=== PATIENT | female | born 1945 | race Caucasian/White ===

== ENCOUNTER → 2017-08-21 08:41 | Outpatient (CLI) | payer MEDICARE, SELFPAY ==
--- NOTE | 2017-08-21 | DI.MG.S_ITS ---
BILATERAL DIGITAL SCREENING MAMMOGRAM 3D/2D WITH CAD: 08/21/2017 CLINICAL: Routine screening. Family history of breast cancer. Comparison is made to exams dated: 07/09/2016 mammogram, 04/22/2014 mammogram, and 09/16/2013 mammogram - [facility]. There are scattered fibroglandular elements in both breasts. Current study was also evaluated with a Computer Aided Detection (CAD) system. There is a biopsy clip in the left breast. No significant masses, calcifications, or other findings are seen in either breast. There has been no significant interval change. IMPRESSION: NEGATIVE There is no mammographic evidence of malignancy. A 1 year screening mammogram is recommended. This exam was interpreted at Station ID: [id number]. NOTE: For mammograms, a report in lay terms will be sent to the patient. Approximately 15% of breast malignancies will not be visualized mammographically. In the management of a palpable breast mass, a negative mammogram must not discourage biopsy of a clinically suspicious lesion. Electronically Signed By: Kyler arambula/pasha:08/21/2017 10:17:23 letter sent: Normal Exam ACR BI-RADS Category 1: Negative 3341F
== END ==
PROVIDERS: PCP Internal Medicine; Visit Provider Internal Medicine
DX: Z12.31 Encounter for screening mammogram for malignant neoplasm of breast (principal); Z80.3 Family history of malignant neoplasm of breast
CPT/HCPCS: 77063; 77067

== ENCOUNTER → 2017-08-26 14:39 | Outpatient (CLI) | payer MEDICARE, SELFPAY ==
--- NOTE | 2017-08-26 | DI.MRI.S_ITS ---
PROCEDURE: MR LUMBAR SPINE WO CON INDICATIONS: Left leg and foot pain and numbness TECHNIQUE: Noncontrast sagittal T1 spin echo and T2 fast echo, sagittal STIR, axial T1 and T2 fast spin echo through the lumbar spine. Axial and oblique coronal T1 spin echo and STIR through the sacrum. In cases with scoliosis, additional coronal T2 fast spin echo may be performed. COMPARISON: [facility], CR, L-SPINE 2-3 VIEWS, 10/28/2013, 14:58. [facility], MR, PELVIS W&WO CONTRAST, 06/07/2016, 13:35. FINDINGS: Image quality: Excellent. Alignment and Curvature: There is normal bony alignment. Bone Marrow: Marrow is of normal overall signal. No acute vertebral body compression fractures. No sacral fractures. Spinal Cord: Conus medullaris terminates at the L1-L2 level. Visualized cord demonstrates normal signal and size. Paraspinous Soft Tissues: No paravertebral masses. Diverticulosis is seen, without findings of active diverticulitis. T12-L1: Normal appearance. L1-L2: Normal appearance. L2-L3: The disc height is well-preserved. Loss of disc signal is seen at this level. Mild generalized disc bulge is seen. There is moderate left-sided and mild right-sided neural foraminal narrowing seen. No significant central canal narrowing is seen. L3-L4: Mild loss of disc height is seen. Loss of disc signal is seen. Mild to moderate disc bulge is seen at this level. Mild bilateral neural foraminal narrowing is seen. Mild central canal narrowing is seen. L4-L5: The disc height is well-preserved. Loss of disc signal is seen at this level. Mild generalized disc bulge is seen. No significant neural foraminal or central canal narrowing are seen. L5-S1: Normal appearance. 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 Sacrum: Sacral neural foramina appear normal throughout. Superior to the piriformis muscles, the pre-plexal structures appear normal, including the lumbosacral trunk and S1 root. Inferior to the piriformis muscles, the sciatic nerves appear normal. IMPRESSION: Multiple levels of lumbar spine degenerative change are seen, which are likely within normal limits for age. No significant sacrum abnormality can be seen. Dictated by: Calvin Sprague M.D. on 08/26/2017 at 14:32 Approved by: Calvin Sprague M.D. on 08/26/2017 at 14:39
== END ==
PROVIDERS: PCP Internal Medicine; Visit Provider Internal Medicine
DX: M79.672 Pain in left foot (principal); M79.605 Pain in left leg; M51.36 Other intervertebral disc degeneration, lumbar region
CPT/HCPCS: 72148

== ENCOUNTER 2017-09-08 08:20 | Emergency (ER) | payer MEDICARE, SELFPAY ==
--- NOTE | 2017-09-08 08:22 | ED.FEMALEGU ---
HPI - Female Genitourinary General Chief complaint: Urogenital-Female Stated complaint: POSSIBLE BLADDER OR KIDNEY INFECTION Time Seen by Provider: 09/08/17 08:21 Source: patient Mode of arrival: ambulatory Limitations: no limitations History of Present Illness HPI Narrative: Patient here for evaluation of dysuria and frequency and hesitancy since Saturday. She also states she has felt nauseous but has not vomited. Also has right CVA tenderness. Has never had a history of urinary tract infections in the past. Has not tried anything at home for it. Related Data Home Medications Medication Instructions Recorded Confirmed ALBUTEROL SULFATE (Ventolin / 2 puff INH Q4H PRN #0 06/11/10 Proventil) aspirin 81 mg PO QDAY #1 04/20/11 pravastatin [Pravachol] 40 mg PO HS #0 tab 12/15/15 prednisone 10 mg PO AMCC #0 12/15/15 Previous Rx's Medication Instructions Recorded prednisone 50 mg PO AMCC #10 tab 12/18/15 cephalexin 500 mg PO Q12H 7 Days #14 cap 09/08/17 phenazopyridine 100 mg PO TID PRN 2 Days #6 tab 09/08/17 Allergies Allergy/AdvReac Type Severity Reaction Status Date / Time adhesive Allergy Unknown Unverified 06/26/17 12:14 moxifloxacin Allergy Unknown Unverified 06/26/17 12:14 atorvastatin [ATORVASTATIN] AdvReac Intermediate MUSCLE Unverified 06/26/17 12:14 WEAKNESS lisinopril [LISINOPRIL] AdvReac Intermediate COUGH Unverified 06/26/17 12:14 Review of Systems Constitutional Denies chills, Denies fever(s), Denies lethargy and Denies weakness Cardiovascular Denies chest pain and Denies dyspnea Respiratory Denies dyspnea Gastrointestinal Gastrointestinal: Denies constipation, Denies dyspepsia, Reports nausea and Denies vomiting Genitourinary Reports urinary frequency, Reports difficulty voiding, Reports dysuria and Reports flank pain Musculoskeletal Denies myalgias and Denies arthralgias Integumentary/Breasts Denies lesions and Denies rash Neurologic Denies weakness Hematologic/Lymphatic Denies easy bleeding and Denies easy bruising [facility] Surgical History Status post delivery Social History Smoking Status: Unknown if ever smoked Exam Initial Vital Signs Initial Vital Signs: Vital Signs Temperature 97.8 F 09/08/17 08:37 Pulse Rate 112 H 09/08/17 08:37 Respiratory Rate 20 09/08/17 08:37 Blood Pressure 160/84 H 09/08/17 08:37 Pulse Oximetry 96 09/08/17 08:37 Const General: cooperative, healthy appearing, comfortable and well developed [facility] Head: normal to inspection, normocephalic and atraumatic GI Inspection: non-distended Palpation: soft, No firm, No guarding and No tender Back/Spine/Pelvis Back: CVA tenderness right Skin Lesions: no lesions Rashes: no rashes Wounds: no wounds Neuro General: alert, awake and oriented x3 Extrem General: normal to inspection Course Orders Ordered: ED Orders 09/08/17 08:30 Urinalysis and Microscopic Stat Urine Culture Stat Vital Signs - 8 hr 09/08/17 08:37 Temperature 97.8 F Pulse Rate 112 H Respiratory Rate 20 Blood Pressure 160/84 H Pulse Oximetry 96 MDM - Female Genitourinary Lab Data Lab Results 09/08/17 Range/Units 08:30 Urine Color Straw Urine Appearance Sl cloudy Urine pH 7.5 (4.5-8.0) Ur Specific [place] 1.015 (1.000-1.035) Urine Protein 1+ H (Negative) Urine Glucose (UA) Normal (Normal) g/dL Urine Ketones Negative (NEGATIVE) Urine Occult Blood 2+ H (Negative) Urine Nitrate Negative (Negative) Urine Bilirubin Negative (NEGATIVE) Urine Urobilinogen 0.2 (0.2) E.U./dL Ur Leukocyte Esterase 3+ H (NEGATIVE) Urine RBC 5-10/hpf H (0-5/HPF) Urine WBC 10-30/hpf H (0-5/HPF) Ur Squamous Epith Cells 0-1 /hpf Urine Bacteria Moderate (10-30) H (None) Ur Culture Indicated? Specimen cultured Micro UA Comment Not Reportable [facility] Narrative Medical decision making narrative: Patient with a urinalysis consistent with urinary tract infection. Urine culture pending at time of discharge. Patient with right CVA tenderness which leads to some concern for pyelonephritis however she is afebrile and not vomiting. I suspect a trial of home oral antibiotics is not a reasonable in this situation. Patient also go home with prescription for pretty in. She was given return precautions. She expressed understanding and agreement with plan. Discharge Plan Departure Patient Disposition: Home, Self-Care Clinical Impression: Urinary tract infection Instructions: DI for Urinary Tract Infection (UTI) Activity Restrictions/Additional Instructions: Take all the medications as directed. Make sure you are increasing your fluid intake. Return to the emergency department for any new symptoms, vomiting, inability to tolerate the antibiotics, worsening pain, or any other concerning symptoms. Prescriptions: New phenazopyridine 100 mg tablet 100 mg PO TID PRN (Reason: pain) 2 Days Qty: 6 RF: 0 cephalexin 500 mg capsule 500 mg PO Q12H 7 Days Qty: 14 RF: 0 No Action ALBUTEROL SULFATE (Ventolin / Proventil) 2 puff INH Q4H PRN Qty: 0 RF: 0 aspirin 81 MG tablet,delayed release (DR/EC) 81 mg PO QDAY Qty: 1 RF: 0 pravastatin [Pravachol] 40 MG tablet 40 mg PO HS Qty: 0 RF: 0 prednisone 10 MG tablet 10 mg PO AMCC Qty: 0 RF: 0 prednisone 50 MG tablet 50 mg PO AMCC Qty: 10 RF: 0
[2017-09-08 08:37] VITALS: BP 160/84; PULSE 112; RESP 20; TEMP 36.6; O2SAT 96; BMI 22.6
[2017-09-08 08:46] LABS: Appearance Urine UA SL CLOUDY; Color Urine UA Straw; Specific Gravity Urine UA 1.015 (1.000-1.035); pH Urine UA 7.5 (4.5-8.0)
[2017-09-08 08:47] LABS: Bilirubin Urine UA Negative (NEGATIVE); Glucose Urine UA Normal (Normal); Ketones Urine UA NEGATIVE (NEGATIVE); Leukocyte Esterase Urine UA 3+ (NEGATIVE); Nitrite Urine UA Negative (Negative); Occult Blood Urine UA 2+ (Negative); Protein Urine UA 1+ (Negative); RBC Urine 5-10/HPF (0-5/HPF); Squamous Epithelial Cell Urine 0-1 /HPF; Urobilinogen Urine UA 0.2 E.U./dL (0.2); WBC Urine 10-30/HPF (0-5/HPF)
[2017-09-08 08:48] LABS: Bacteria Urine Moderate (10-30); Culture Indicated Urine Specimen Cultured
[2017-09-08 09:20] VITALS: BP 157/82; PULSE 100; RESP 18; O2SAT 96
== END 2017-09-08 09:20 | disposition home or self-care (01) ==
PROVIDERS: Emergency Provider Emergency Medicine; PCP Internal Medicine
DX: N39.0 Urinary tract infection, site not specified (principal)
CPT/HCPCS: 81001; 81003; 87077; 87086; 87186; 99282; 99283

== ENCOUNTER → 2017-12-20 11:59 | Outpatient (CLI) | payer MEDICARE, SELFPAY ==
--- NOTE | 2017-12-20 | DI.RAD.S_ITS ---
PROCEDURE: XR HIP W PEL IF DONE LT 2V INDICATIONS: pain in left hip TECHNIQUE: AP pelvis with lateral view(s) of the left hip(s). COMPARISON: None. FINDINGS: Bones: No fractures or dislocations. Pelvic ring appears intact. No suspicious bony lesions. Moderate left hip joint osteoarthritis is seen, no evidence of avascular necrosis. Soft tissues: The visualized bowel gas pattern is normal. No suspicious soft tissue calcifications. IMPRESSION: Moderate left hip joint osteoarthritis. No fracture or dislocation. No evidence of avascular necrosis. Dictated by: Brad Porter M.D. on 12/20/2017 at 12:48 Approved by: Brad Porter M.D. on 12/20/2017 at 12:49
== END ==
PROVIDERS: PCP Internal Medicine; Visit Provider Physician Assistant
DX: M25.552 Pain in left hip (principal); M16.12 Unilateral primary osteoarthritis, left hip
CPT/HCPCS: 73502

== ENCOUNTER → 2018-08-22 14:54 | Outpatient (CLI) | payer MEDICARE, SELFPAY ==
--- NOTE | 2018-08-22 | DI.MG.S_ITS ---
BILATERAL DIGITAL SCREENING MAMMOGRAM 3D/2D WITH CAD: 08/22/2018 CLINICAL: Routine screening. Family history of breast cancer. Comparison is made to exams dated: 08/21/2017 mammogram, 07/09/2016 mammogram, and 04/22/2014 mammogram - [facility]. There are scattered fibroglandular elements in both breasts. Current study was also evaluated with a Computer Aided Detection (CAD) system. There is postsurgical/postbiopsy parenchymal scarring of the upper outer left breast at middle depth with an associated biopsy clip noted, which is not significantly changed from prior exams. There are additional biopsy/surgical clips in the left breast. There is a mole marker on the right breast. No significant masses, calcifications, or other findings are seen in either breast. IMPRESSION: There is no mammographic evidence of malignancy. A 1 year screening mammogram is recommended. This exam was interpreted at Station ID: [id number]. NOTE: For mammograms, a report in lay terms will be sent to the patient. Approximately 15% of breast malignancies will not be visualized mammographically. In the management of a palpable breast mass, a negative mammogram must not discourage biopsy of a clinically suspicious lesion. Electronically Signed By: Preston Herrera M.D. ecl/:08/22/2018 18:55:02 letter sent: Normal Exam ACR BI-RADS Category 2: Benign Finding(s) 3342F
== END ==
PROVIDERS: PCP Internal Medicine; Visit Provider Internal Medicine
DX: Z12.31 Encounter for screening mammogram for malignant neoplasm of breast (principal); Z80.3 Family history of malignant neoplasm of breast
CPT/HCPCS: 77063; 77067

== ENCOUNTER → 2019-01-23 15:06 | Outpatient (CLI) | payer MEDICARE, SELFPAY ==
[2019-01-23 16:14] LABS: Blood Urea Nitrogen 14 mg/dL (7-17); Estimated Glomerular Filt Rate > 60.0 mL/min (>60)
== END ==
PROVIDERS: PCP Internal Medicine; Visit Provider Internal Medicine
DX: M81.0 Age-related osteoporosis without current pathological fracture (principal)
CPT/HCPCS: 82565; 84520

== ENCOUNTER → 2019-02-05 11:30 | Oncology outpatient (ONC) | payer MEDICARE, SELFPAY ==
[2017-09-11] MEDS: ZOLEDRONIC ACID 5 MG in SODIUM CHLORIDE 0.9% 100 ML 318.75 ML IV (15:00)
[2017-09-11 15:25] VITALS: BP 113/66; PULSE 108; RESP 20; TEMP 37.1; O2SAT 96
[2019-02-05] MEDS: ZOLEDRONIC ACID 5 MG in SODIUM CHLORIDE 0.9% 100 ML 318.75 ML IV (12:00)
[2019-02-05 12:04] VITALS: BP 140/63; PULSE 93; RESP 18; TEMP 36.9; O2SAT 95
== END ==
PROVIDERS: PCP Internal Medicine; Visit Provider Internal Medicine
DX: M81.0 Age-related osteoporosis without current pathological fracture (principal)
CPT/HCPCS: 36000; 96365; 96374; J3489

== ENCOUNTER → 2019-06-03 14:59 | Outpatient (ROUT) | payer MEDICARE, SELFPAY | PROVIDERS: PCP Internal Medicine; Visit Provider Internal Medicine | DX: R39.9 Unspecified symptoms and signs involving the genitourinary system (principal) | CPT/HCPCS: 87086 ==

== ENCOUNTER → 2019-10-26 18:39 | Outpatient (ROUT) | payer MEDICARE, SELFPAY ==
[2019-10-26 19:03] LABS: Alanine Aminotransferase 25 IU/L (<35); Albumin 4.6 g/dL (3.5-5.0); Albumin Globulin Ratio 1.3 (1.0-2.8); Alkaline Phosphatase 116 U/L (38-126); Amylase 59 U/L (30-110); Aspartate Aminotransferase 46 IU/L (14-36); BUN Creatinine Ratio 16.9 (6-22); Bilirubin Total 0.8 mg/dL (0.2-1.3); Blood Urea Nitrogen 11 mg/dL (7-17); Carbon Dioxide 28 mmol/L (22-32); Chloride 103 mmol/L (98-107); Cholesterol 213 mg/dL (140-199); Estimated Glomerular Filt Rate > 60.0 mL/min (>60); Globulin 3.5 g/dL (1.7-4.1); Glucose 93 mg/dL (80-110); HDL Cholesterol 102 mg/dL (40-60); HEMOLYSIS 20 (0-50); LDL Cholesterol Calculated 72 mg/dL (<100); Lipase 90 U/L (23-300); Potassium 4.1 mmol/L (3.4-5.1); Sodium 139 mmol/L (137-145); Total Protein 8.1 g/dL (6.3-8.2); Triglycerides 195 mg/dL (35-150)
[2019-10-26 19:30] LABS: Add Manual Diff / Slide Review NO; Basophils Absolute Auto 0 /uL (0-100); Basophils Percent Auto 0.8 % (0-2); Eosinophils Absolute Auto 200 /uL (0-450); Eosinophils Percent Auto 3.9 % (2-4); Hematocrit 44.6 % (36-46); Hemoglobin 14.9 g/dL (12.0-16.0); Lymphocytes Absolute Auto 1300 /uL (1100-4500); Lymphocytes Percent Auto 20.3 % (25-40); Mean Corpuscular HGB Conc 33.5 % (30-36); Mean Corpuscular Hemoglobin 28.9 PG (26-34); Mean Corpuscular Volume 86.5 fL (80-100); Monocytes Absolute Auto 700 /uL (0-900); Neutrophils Absolute Auto 4000 /uL (1500-7000); Platelet Count 306 X10^3/uL (150-400); Red Blood Cell Count 5.15 X10^6/uL (4.0-5.2); Red Cell Distribution Width 13.4 % (11.6-14.8); White Blood Cell Count 6.3 X10^3/uL (4.5-11.0)
[2019-10-26 19:34] LABS: TSH w/ Reflex to FT4 3.41 uIU/mL (0.47-4.68)
== END ==
PROVIDERS: PCP Internal Medicine; Visit Provider Internal Medicine
DX: R53.83 Other fatigue (principal); R11.2 Nausea with vomiting, unspecified; E78.2 Mixed hyperlipidemia
CPT/HCPCS: 80053; 80061; 82150; 83690; 84443; 85025

== ENCOUNTER → 2019-10-28 12:39 | Outpatient (CLI) | payer MEDICARE, SELFPAY ==
--- NOTE | 2019-10-28 | DI.US.S_ITS ---
PROCEDURE: US ABDOMEN COMPLETE INDICATIONS: NAUSEA, VOMITING TECHNIQUE: Real-time scanning was performed of the abdominal and retroperitoneal organs, with image documentation. COMPARISON: None. FINDINGS: Liver: Liver is normal in size and homogeneous in echotexture. Gallbladder: The gallbladder wall measures 1.2 mm in diameter. A nonobstructing 4.3 mm calculus is present within the gallbladder fundus. Biliary ducts: Intrahepatic bile ducts are non-dilated. Extrahepatic bile duct caliber measures 4.5 mm. Normal is 6-7 mm or less in diameter, or 10 mm or less post-cholecystectomy. Pancreas: The pancreas is not visualized. Spleen: Spleen is normal in size and homogeneous in echotexture. Kidneys: Kidneys are normal in size and echotexture. Right kidney measures 11.3 cm long; left kidney measures 0.6 cm long. No hydronephrosis or nephrolithiasis. No solid masses. Aorta: Visualized aorta is normal in caliber at less than 3 cm. Iliacs: Proximal common iliac arteries are normal in caliber at less than 2.5 cm. IVC: Intrahepatic inferior vena cava is patent. Miscellaneous: No free abdominal fluid. IMPRESSION: 1. Cholelithiasis. No findings to suggest choledocholithiasis or acute cholecystitis. Dictated by: Gina Johnson M.D. on 10/28/2019 at 16:40 Approved by: Gina Johnson M.D. on 10/28/2019 at 16:41
== END ==
PROVIDERS: PCP Internal Medicine; Referring Provider Internal Medicine; Visit Provider Internal Medicine
DX: R11.2 Nausea with vomiting, unspecified (principal); K80.20 Calculus of gallbladder without cholecystitis without obstruction
CPT/HCPCS: 76700

== ENCOUNTER → 2020-03-23 11:12 | Outpatient (CLI) | payer MEDICARE, SELFPAY ==
--- NOTE | 2020-03-23 | DI.MG.S_ITS ---
BILATERAL DIGITAL SCREENING MAMMOGRAM 3D/2D WITH CAD: 03/23/2020 CLINICAL: Routine screening. Family history of breast cancer. Comparison is made to exams dated: 08/22/2018 mammogram, 08/21/2017 mammogram, and 07/09/2016 mammogram - [facility]. There are scattered fibroglandular elements in both breasts. Current study was also evaluated with a Computer Aided Detection (CAD) system. There are biopsy clips in the left breast. There is a mole marker on the right breast. No significant masses, calcifications, or other findings are seen in either breast. There has been no significant interval change. IMPRESSION: NEGATIVE There is no mammographic evidence of malignancy. A 1 year screening mammogram is recommended. This exam was interpreted at Station ID: [id number]. NOTE: For mammograms, a report in lay terms will be sent to the patient. Approximately 15% of breast malignancies will not be visualized mammographically. In the management of a palpable breast mass, a negative mammogram must not discourage biopsy of a clinically suspicious lesion. Electronically Signed By: Daniel davey/pasha:03/23/2020 13:23:17 letter sent: Normal Exam ACR BI-RADS Category 1: Negative 3341F
== END ==
PROVIDERS: PCP Internal Medicine; Referring Provider Internal Medicine; Visit Provider Internal Medicine
DX: Z12.31 Encounter for screening mammogram for malignant neoplasm of breast (principal); Z80.3 Family history of malignant neoplasm of breast
CPT/HCPCS: 77063; 77067

== ENCOUNTER 2020-04-13 08:55 | Observation (INO) | payer MEDICARE, SELFPAY ==
[2020-04-13] VITALS (34 sets, daily range): BP systolic 113–215; BP diastolic 60–131; PULSE 77–96; RESP 16–24; TEMP 36.7–37.4; O2SAT 92–100; BMI 22.8
--- NOTE | 2020-04-13 | DI.MRI.S_ITS ---
PROCEDURE: MR HEAD/BRAIN WO CON INDICATIONS: dizziness and ataxia, r/o CVA TECHNIQUE: Non-contrast axial T1 spin echo, axial T2 fast spin echo, sagittal and axial FLAIR, coronal T2 fast spin echo, axial gradient echo, axial diffusion and ADC through the brain. COMPARISON: None. FINDINGS: Image quality: Excellent. CSF spaces: Ventricles appear symmetric in size and shape. Basal cisterns are patent. No extra-axial fluid collections. Brain: No intracranial bleeds or mass effects. There is cerebral volume loss for age. There are periventricular and deep white matter chronic small vessel ischemic changes. Brainstem appears normal. Diffusion-weighted images show no acute ischemic insults. No chronic ischemic insults. Normal intravascular flow voids are present. Skull and face: Calvarial bone marrow is normal in signal. Orbits are normal. Sinuses: Sinuses and mastoids are clear. IMPRESSION: Diffuse small white matter changes, probably represent chronic microvascular ischemic disease, versus statistically less likely demyelination or other infectious, inflammatory, neurodegenerative etiology, technically nonspecific. No acute ischemia Dictated by: Evaristo Kline M.D. on 04/13/2020 at 15:00 Approved by: Evaristo Kline M.D. on 04/13/2020 at 15:04
--- NOTE | 2020-04-13 09:09 | DI.CT.S_ITS ---
PROCEDURE: CT HEAD/BRAIN WO CON INDICATIONS: woke w/ dizzy/dbl vision TECHNIQUE: Noncontrast 4.5 mm thick angled axial sections acquired from the foramen magnum to the vertex, with coronal and sagittal reformats. For radiation dose reduction, the following was used: automated exposure control, adjustment of mA and/or kV according to patient size. COMPARISON: None. FINDINGS: Image quality: Excellent. CSF spaces: Basal cisterns are patent. No extra-axial fluid collections. The ventricles are symmetric in size and shape. Brain: No intracranial bleeds or masses. There is cerebral volume loss for age, with resultant ventricular and sulcal prominence. There are periventricular and deep white matter chronic small vessel ischemic changes. Chronic right taylor radiata lacunar infarct. Small chronic bilateral basal ganglia and subinsular white matter lacunar infarcts. There is intracranial internal carotid artery atherosclerosis. Skull and face: Calvarium and visualized facial bones appear intact, without suspicious lesions. Sinuses: Visualized sinuses and mastoids are clear. IMPRESSION: No acute intracranial disease process. Dictated by: Mayi Brooks MD, PhD on 04/13/2020 at 8:33 Approved by: Mayi Brooks MD, PhD on 04/13/2020 at 8:36
--- NOTE | 2020-04-13 09:09 | DI.RAD.S_ITS ---
PROCEDURE: XR CHEST 1V INDICATIONS: dizzy/double vision TECHNIQUE: One view of the chest was acquired. COMPARISON: [facility], , CHEST 2 VIEW, 12/15/2015, 16:57. FINDINGS: Surgical changes and devices: None. Lungs and pleura: No acute consolidation. There is a dense nodule in the left apex compatible with a calcified granuloma redemonstrated. No pleural effusions or pneumothorax. Mediastinum: Mediastinal contours appear normal. Heart size is normal. Bones and chest wall: No suspicious bony lesions. Overlying soft tissues appear unremarkable. IMPRESSION: 1. No acute cardiopulmonary disease. Dictated by: Daniel Roberts M.D. on 04/13/2020 at 9:29 Approved by: Daniel Roberts M.D. on 04/13/2020 at 9:32
[2020-04-13 09:24] LABS: Add Manual Diff / Slide Review NO; Basophils Absolute Auto 0 /uL (0-100); Basophils Percent Auto 0.5 % (0-2); Eosinophils Absolute Auto 200 /uL (0-450); Eosinophils Percent Auto 3.4 % (2-4); Hematocrit 41.3 % (36-46); Hemoglobin 13.4 g/dL (12.0-16.0); Lymphocytes Absolute Auto 1600 /uL (1100-4500); Lymphocytes Percent Auto 26.6 % (25-40); Mean Corpuscular HGB Conc 32.5 % (30-36); Mean Corpuscular Hemoglobin 28.6 PG (26-34); Mean Corpuscular Volume 87.9 fL (80-100); Monocytes Absolute Auto 700 /uL (0-900); Monocytes Percent Auto 11.2 % (3-14); Neutrophils Absolute Auto 3500 /uL (1500-7000); Neutrophils Percent Auto 58.3 % (50-75); Platelet Count 360 X10^3/uL (150-400); Red Blood Cell Count 4.69 X10^6/uL (4.0-5.2); Red Cell Distribution Width 13.1 % (11.6-14.8)
[2020-04-13 09:27] LABS: Prothrombin Time 11.3 SECONDS (10.1-12.7)
[2020-04-13 09:30] LABS: Alanine Aminotransferase 23 IU/L (<35); Albumin 4.6 g/dL (3.5-5.0); Albumin Globulin Ratio 1.1 (1.0-2.8); Alkaline Phosphatase 113 U/L (38-126); Aspartate Aminotransferase 39 IU/L (14-36); Bilirubin Total 0.7 mg/dL (0.2-1.3); Blood Urea Nitrogen 11 mg/dL (7-17); Calcium 9.5 mg/dL (8.4-10.2); Carbon Dioxide 32 mmol/L (22-32); Chloride 100 mmol/L (98-107); Estimated Glomerular Filt Rate > 60.0 mL/min (>60); Globulin 4.1 g/dL (1.7-4.1); Glucose 101 mg/dL (80-110); HEMOLYSIS 36 (0-50); Potassium 3.7 mmol/L (3.4-5.1); Sodium 138 mmol/L (137-145); Total Protein 8.7 g/dL (6.3-8.2)
[2020-04-13 09:39] LABS: NT-proBNP (BNP-Adult 18+) 296 pg/mL (<125)
[2020-04-13 09:41] LABS: Troponin I 0.063 ng/mL (0.01-0.034)
--- NOTE | 2020-04-13 09:55 | ED_ITS ---
HPI - Dizziness General Chief Complaint: Dizziness Stated Complaint: Dizziness Time Seen by Provider: 04/13/20 09:54 Source: EMS Mode of arrival: Wheelchair Limitations: no limitations History of Present Illness HPI Narrative: 74-year-old female comes to the emergency department with complaint of double vision and dizziness which she describes as room spinning. Patient states last night she developed chest pressure and her arm and neck which was present when she went to sleep and when she woke up this morning had resolved. She went to sleep at 9:00 p.m. yesterday. When she woke up this morning at approximately 5:00 a.m. patient states that she did not have any chest pressure, neck pain or arm pain but she did have double vision which she described in both eyes but when she closes the left or the right improves. She feels quite dizzy which she describes as vertigo like symptoms. She states movement of her head does not worsen her symptoms. She denies any speech issues. She does have headache behind both eyes. She states she has that has improved, but they are still blurriness particularly on the right in comparison to left. She denies any numbness, tingling or weakness. She does have diffi culty walking about. She states some mild nausea but no vomiting. Denies any chest pain or pressure, no shortness of breath today. Patient does normally wear glasses. She has not had similar symptoms in the past. She does have a history of hypertension, dyslipidemia, GERD and ?clogged veins? which resulted in a stent in her leg. Patient states she quit tobacco remotely, occasional alcohol but none recently. No illicit. Her PCP is Dr. Mena. Related Data Home Medications Medication Instructions Recorded Confirmed ALBUTEROL SULFATE (Ventolin / 2 puff INH Q4H PRN #0 06/11/10 04/13/20 Proventil) aspirin 81 mg PO QDAY #1 04/20/11 04/13/20 pravastatin [Pravachol] 40 mg PO HS #0 tab 12/15/15 04/13/20 prednisone 10 mg PO [facility] PRN #0 12/15/15 04/13/20 albuterol sulfate 90 mcg/actuation 2 puff INHALATION Q6H PRN 11/25/17 04/13/20 aerosol inhaler amlodipine 10 mg tablet 10 mg PO DAILY 11/25/17 04/13/20 cholecalciferol (vitamin D3) 25 1,000 unit PO DAILY 11/25/17 04/13/20 mcg (1,000 unit) capsule losartan 25 mg tablet 25 mg PO DAILY 11/25/17 04/13/20 prednisone 50 mg PO [facility] PRN 04/13/20 04/13/20 Allergies Allergy/AdvReac Type Severity Reaction Status Date / Time adhesive Allergy Unknown Verified 11/25/17 09:00 moxifloxacin Allergy Unknown Verified 11/25/17 09:00 atorvastatin [ATORVASTATIN] AdvReac Intermediate MUSCLE Verified 11/25/17 09:00 WEAKNESS lisinopril [LISINOPRIL] AdvReac Intermediate COUGH Verified 11/25/17 09:00 Review of Systems Review of Systems ROS Unobtainable: All systems reviewed & are unremarkable except as noted in HPI and below Patient History Medical History (Updated 04/13/20 @ 17:00 by Chester Spencer DO) COPD (chronic obstructive pulmonary disease) Degenerative joint disease of left hip HLD (hyperlipidemia) Hypertension PVD (peripheral vascular disease) with claudication Surgical History Status post delivery Social History household members: spouse and children Smoking Status: Former smoker Smoking Status: Former smoker alcohol intake frequency: 0-2 drinks per day Substance Use Type: does not use Exam Narrative Exam Narrative: GEN: well nourished, well appearing female, alert and oriented x 3, patient appears to be in mild distress. HEENT: Atraumatic, pupils are equal round reactive to light, extraocular movements appear intact but patient does have some difficulty at times, nares are clear, TMs are clear with no fluid, there is no conjunctival pallor. Throat is clear without any exudates, erythema, tonsillar enlargement or uvular deviation, no obvious facial droop. No dysarthria. Visual acuity: right [20/30], left [20/50] with glasses. 20/50 bilaterlly. IOP: Right 19 mm Hg, Left 16 mm Hg General: no globe trauma Eyelids: normal inspection Conjunctiva/Sclera: normal inspection Corneas: normal inspection, EOM: intact, no palsy/entrapment Pupils: PERRL, normal accomadation, pupil normal Anterior Chambers: normal inspection, no hypema Posterior: normal fundoscopic on [right/left] HEART: Regular rate and rhythm without murmur, clicks, rubs. No carotid bruits, pulses are equal in upper and lower extremities LUNGS:Lungs clear to auscultation, no wheezes, rales, crackles, chest moves symmetrically ABD:bowel sounds normal, soft, non-tender, no guarding, rebound, rigidity, no masses noted, no hepatosplenomegaly :No CVA tenderness MSCL: Non-tender, no muscle atrophy, muscles strength 5/5 upper and lower extrem ities, full range of motion. NEURO:CN 2-12 intact, sensation normal, reflexes 2/4 upper and lower extremities. finger nose finger test patient has ataxis with nose on right and both right and left with finger but difficult to ascertain if this is secondary to ataxia or her vision changes, heel wellington test normal. Patient states she sees 3 fingers when I hold up two and that when she is looking at the doorway it appears to be bend or curved. Patient is able to visualize all the objects on the NIH card and is able to review these without issue. SKIN: No rash, erythema or other skin changes. Initial Vital Signs Initial Vital Signs: Vital Signs Pulse Rate 96 H 04/13/20 09:01 Respiratory Rate 20 04/13/20 09:01 Blood Pressure 212/94 H 04/13/20 09:01 Pulse Oximetry 97 04/13/20 09:01 Scores GCS Porter coma scale eye opening: Spontaneous Delphia coma scale verbal response: Orientated Porter coma scale motor response: Obey commands Delphia coma scale total score: 15 NIH Stroke Scale Level of Conciousness: Alert, keenly responsive Ask month/age: Answers both questions correctly. Open/close eyes, close hand: Performs both tasks correctly Best gaze horizontal: Partial gaze palsy, can be overcome by finger tracking, head turning Visual aaron: No visual loss Facial palsy: Normal symetrical movement Left arm drift: No drift for full 10 sec Right arm drift: No drift for full 10 sec Left leg drift: No drift for full 5 sec Right leg drift: No drift for full 5 sec Limb ataxia: Present in two limbs (bilateral upper extremities, patient did have difficulty touching her own nose on with left hand and not with right hand.) Sensory on face/arms/legs: Normal, no sensory loss Best language: No aphasia, normal Dysarthria: Normal Extinction or inattention: No abnormality Total NIH Stroke scale score: 3 Course Orders Ordered: Acetaminophen (Acetaminophen 325 Mg Tablet) 650 mg PO Q6HR PRN PRN Reason: Fever/Mild Pain (1-3) Amlodipine Besylate (Amlodipine 5 Mg Tablet) 10 mg PO DAILY [facility] Aspirin (Aspirin Ec 81 Mg Tablet) 81 mg PO DAILY MARIELLE Enoxaparin Sodium (Enoxaparin 40 Mg/0.4 Ml Syringe) 40 mg SUBCUT DAILY MARIELLE Losartan Potassium (Losartan 25 Mg Tablet) 25 mg PO DAILY MARIELLE Meclizine HCl (Meclizine Hcl 12.5 Mg Tablet) 25 mg PO Q6HR PRN PRN Reason: Vertigo Last Admin: 04/13/20 19:30 Dose: 25 mg Documented by: SUNNY Ondansetron HCl (Ondansetron 4 Mg/2 Ml Inj) 4 mg IV Q8HR PRN PRN Reason: Nausea And Vomiting Pravastatin Sodium (Pravastatin 20 Mg Tablet) 40 mg PO BEDTIME MARIELLE Discontinued Medications Amlodipine Besylate (Amlodipine 5 Mg Tablet) 10 mg PO NOW ONE Stop: 04/13/20 12:58 Last Admin: 04/13/20 13:18 Dose: 10 mg Documented by: DARIEL Aspirin (Aspirin 81 Mg Chew Tab) 324 mg PO NOW ONE Stop: 04/13/20 10:28 Last Admin: 04/13/20 10:53 Dose: 324 mg Documented by: SOFIA Chlorthalidone (Chlorthalidone 25 Mg Tablet) 25 mg PO NOW ONE Stop: 04/13/20 12:58 Last Admin: 04/13/20 13:18 Dose: 25 mg Documented by: DARIEL Sodium Chloride (Normal Saline 0.9%) 1,000 mls @ 125 mls/hr IV BOLUS ONE Stop: 04/13/20 15:52 Last Admin: 04/13/20 10:54 Dose: 125 mls/hr Documented by: SOFIA Labetalol HCl (Labetalol 20 Mg/4 Ml Syringe) 10 mg IV NOW ONE Stop: 04/13/20 10:29 Last Admin: 04/13/20 11:08 Dose: 10 mg Documented by: SOFIA Proparacaine HCl (Proparacaine 0.5% Ophth Kimmy) 1 drops EYE-BOTH NOW ONE Stop: 04/13/20 10:28 Last Admin: 04/13/20 10:53 Dose: 1 drop Documented by: SOFIA Consultations Consultation #1: Spoke with Dr. Villagomez with [facility]. He suspects possible small-vessel brain stem stroke over other causes such as nerve palsy, ect. He recommends keeping blood pressure about 170-180 range with plan for observation here. MRI. Continuing aspirin, dual platelet possibly loading with 300 mg of Plavix followed by 75 mg daily, as well as statin. Consultation #2: Dr. Spencer accepts for observation. Discussed neurology recommendations. Patient's findings today, possible differential discussed with neurology. Time: 13:08 Vital Signs Vital signs: Vital Signs - 8 hr 04/13/20 12:00 04/13/20 12:15 04/13/20 12:18 Pulse Rate 83 80 81 Respiratory Rate 18 18 Blood Pressure 190/87 H 158/73 H 158/73 H Pulse Oximetry 97 95 04/13/20 12:30 04/13/20 12:45 04/13/20 13:00 Pulse Rate 77 92 H 88 Respiratory Rate 16 20 17 Blood Pressure 161/75 H 202/91 H Pulse Oximetry 94 95 97 04/13/20 13:07 04/13/20 13:16 Pulse Rate 92 H 92 H Respiratory Rate 19 20 Blood Pressure 190/131 H Pulse Oximetry 96 MDM - Dizziness Lab Data Attestation: I reviewed the patient's lab results. Result diagrams: 04/13/20 09:05 04/13/20 09:05 Labs: Lab Results 04/13/20 04/13/20 04/13/20 Range/Units 09:05 09:05 09:05 WBC 6.0 (4.5-11.0) X10^3/uL RBC 4.69 (4.0-5.2) X10^6/uL Hgb 13.4 (12.0-16.0) g/dL Hct 41.3 (36-46) % MCV 87.9 (80-100) fL MCH 28.6 (26-34) PG MCHC 32.5 (30-36) % RDW 13.1 (11.6-14.8) % Plt Count 360 (150-400) X10^3/uL Neut % (Auto) 58.3 (50-75) % Lymph % (Auto) 26.6 (25-40) % Gaines % (Auto) 11.2 (3-14) % Eos % (Auto) 3.4 (2-4) % Baso % (Auto) 0.5 (0-2) % Neut # (Auto) 3500 (4677-4141) /uL Lymph # (Auto) 1600 (7769-4801) /uL Gaines # (Auto) 700 (0-900) /uL Eos # (Auto) 200 (0-450) /uL Baso # (Auto) 0 (0-100) /uL PT 11.3 (10.1-12.7) SECONDS INR 1.0 (0.9-1.3) Sodium 138 (137-145) mmol/L Potassium 3.7 (3.4-5.1) mmol/L Chloride 100 (98-107) mmol/L Carbon Dioxide 32 (22-32) mmol/L BUN 11 (7-17) mg/dL Creatinine 0.58 (0.52-1.04) mg/dL Estimated GFR > 60.0 (>60) mL/min BUN/Creatinine Ratio 19.0 (6-22) Glucose 101 (80-110) mg/dL Calcium 9.5 (8.4-10.2) mg/dL Total Bilirubin 0.7 (0.2-1.3) mg/dL AST 39 H (14-36) IU/L ALT 23 (<35) IU/L Alkaline Phosphatase 113 (38-126) U/L Troponin I 0.063 H (0.01-0.034) ng/mL NT-Pro-B Natriuret Pep (<125) pg/mL Total Protein 8.7 H (6.3-8.2) g/dL Albumin 4.6 (3.5-5.0) g/dL Globulin 4.1 (1.7-4.1) g/dL Albumin/Globulin Ratio 1.1 (1.0-2.8) TSH (0.47-4.68) uIU/mL Urine RBC (0-5/HPF) Urine WBC (0-5/HPF) Ur Squamous Epith Cells (0-5/HPF) Ur Transition Epith Cell (0-5/HPF) Urine Bacteria (None) Ur Culture Indicated? SARS-CoV-2 (PCR) (Negative) 04/13/20 04/13/20 04/13/20 Range/Units 09:05 09:05 10:03 WBC (4.5-11.0) X10^3/uL RBC (4.0-5.2) X10^6/uL Hgb (12.0-16.0) g/dL Hct (36-46) % MCV (80-100) fL MCH (26-34) PG MCHC (30-36) % RDW (11.6-14.8) % Plt Count (150-400) X10^3/uL Neut % (Auto) (50-75) % Lymph % (Auto) (25-40) % Gaines % (Auto) (3-14) % Eos % (Auto) (2-4) % Baso % (Auto) (0-2) % Neut # (Auto) (9205-4166) /uL Lymph # (Auto) (1618-5591) /uL Gaines # (Auto) (0-900) /uL Eos # (Auto) (0-450) /uL Baso # (Auto) (0-100) /uL PT (10.1-12.7) SECONDS INR (0.9-1.3) Sodium (137-145) mmol/L Potassium (3.4-5.1) mmol/L Chloride (98-107) mmol/L Carbon Dioxide (22-32) mmol/L BUN (7-17) mg/dL Creatinine (0.52-1.04) mg/dL Estimated GFR (>60) mL/min BUN/Creatinine Ratio (6-22) Glucose (80-110) mg/dL Calcium (8.4-10.2) mg/dL Total Bilirubin (0.2-1.3) mg/dL AST (14-36) IU/L ALT (<35) IU/L Alkaline Phosphatase (38-126) U/L Troponin I (0.01-0.034) ng/mL NT-Pro-B Natriuret Pep 296 H (<125) pg/mL Total Protein (6.3-8.2) g/dL Albumin (3.5-5.0) g/dL Globulin (1.7-4.1) g/dL Albumin/Globulin Ratio (1.0-2.8) TSH 4.12 (0.47-4.68) uIU/mL Urine RBC (0-5/HPF) Urine WBC (0-5/HPF) Ur Squamous Epith Cells (0-5/HPF) Ur Transition Epith Cell (0-5/HPF) Urine Bacteria (None) Ur Culture Indicated? SARS-CoV-2 (PCR) Negative (Negative) 04/13/20 Range/Units 10:41 WBC (4.5-11.0) X10^3/uL RBC (4.0-5.2) X10^6/uL Hgb (12.0-16.0) g/dL Hct (36-46) % MCV (80-100) fL MCH (26-34) PG MCHC (30-36) % RDW (11.6-14.8) % Plt Count (150-400) X10^3/uL Neut % (Auto) (50-75) % Lymph % (Auto) (25-40) % Gaines % (Auto) (3-14) % Eos % (Auto) (2-4) % Baso % (Auto) (0-2) % Neut # (Auto) (3132-8173) /uL Lymph # (Auto) (6314-7154) /uL Gaines # (Auto) (0-900) /uL Eos # (Auto) (0-450) /uL Baso # (Auto) (0-100) /uL PT (10.1-12.7) SECONDS INR (0.9-1.3) Sodium (137-145) mmol/L Potassium (3.4-5.1) mmol/L Chloride (98-107) mmol/L Carbon Dioxide (22-32) mmol/L BUN (7-17) mg/dL Creatinine (0.52-1.04) mg/dL Estimated GFR (>60) mL/min BUN/Creatinine Ratio (6-22) Glucose (80-110) mg/dL Calcium (8.4-10.2) mg/dL Total Bilirubin (0.2-1.3) mg/dL AST (14-36) IU/L ALT (<35) IU/L Alkaline Phosphatase (38-126) U/L Troponin I (0.01-0.034) ng/mL NT-Pro-B Natriuret Pep (<125) pg/mL Total Protein (6.3-8.2) g/dL Albumin (3.5-5.0) g/dL Globulin (1.7-4.1) g/dL Albumin/Globulin Ratio (1.0-2.8) TSH (0.47-4.68) uIU/mL Urine RBC None seen (0-5/HPF) Urine WBC None seen (0-5/HPF) Ur Squamous Epith Cells 5-10 /hpf H (0-5/HPF) Ur Transition Epith Cell 10-30/hpf H (0-5/HPF) Urine Bacteria None seen (None) Ur Culture Indicated? Cult not indicated SARS-CoV-2 (PCR) (Negative) Urine Dip Bedside Urine Glucose Negative Bedside Urine Bilirubin - Negative Bedside Urine Ketone - Negative Urine Specific Uriah 1.020 Bedside Urine Occult Blood - Negative Bedside Urine pH 6.5 Bedside Urine Protein - Negative Bedside Urine Urobilinogen - Negative Bedside Urine Nitrite - Negative Bedside Urine Leukocytes ++ [address] scan - head: Radiologist's Impression: [address] [id number] Scan ReportSigned Patient: Debi Bueno KMR#: [id number]: 8Acct:[id number]/Sex: 74 / FDate of Service: 04/13/20Loc: EDAccession Number: [id number] Procedure: CT head/brain wo con Ordering Provider: Nuha Frederick D.O. PROCEDURE: CT HEAD/BRAIN WO CON INDICATIONS: woke w/ dizzy/dbl vision TECHNIQUE: Noncontrast 4.5 mm thick angled axial sections acquired from the foramen magnum to the vertex, with coronal and sagittal reformats. For radiation dose reduction, the following was used: automated exposure control, adjustment of mA and/or kV according to patient size. COMPARISON: None. FINDINGS: Image quality: Excellent. CSF spaces: Basal cisterns are patent. No extra-axial fluid collections. The ventricles are symmetric in size and shape. Brain: No intracranial bleeds or masses. There is cerebral volume loss for age, with resultant ventricular and sulcal prominence. There are periventricular and deep white matter chronic small vessel ischemic changes. Chronic right taylor radiata lacunar infarct. Small chronic bilateral basal ganglia and subinsular white matter lacunar infarcts. There is intracranial internal carotid artery atherosclerosis. Skull and face: Calvarium and visualized facial bones appear intact, without suspicious lesions. Sinuses: Visualized sinuses and mastoids are clear. IMPRESSION: No acute intracranial disease process. Dictated by: Mayi Brooks MD, PhD on 04/13/2020 at 8:33 Approved by: Mayi Brooks MD, PhD on 04/13/2020 at 8:36 Chest x-ray: Radiologist's Impression: [address] [id number] ReportSigned Patient: Debi Bueno R#: [id number]: 8Acct:[id number]/Sex: 74 / FDate of Service: 04/13/20Loc: EDAccession Number: [id number] Procedure: XR chest 1V Ordering Provider: Nuha Frederick D.O. PROCEDURE: XR CHEST 1V INDICATIONS: dizzy/double vision TECHNIQUE: One view of the chest was acquired. COMPARISON: [facility], CHEST 2 VIEW, 12/15/2015, 16:57. FINDINGS: Surgical changes and devices: None. Lungs and pleura: No acute consolidation. There is a dense nodule in the left apex compatible with a calcified granuloma redemonstrated. No pleural effusions or pneumothorax. Mediastinum: Mediastinal contours appear normal. Heart size is normal. Bones and chest wall: No suspicious bony lesions. Overlying soft tissues appear unremarkable. IMPRESSION: 1. No acute cardiopulmonary disease. Dictated by: Daniel Roberts M.D. on 04/13/2020 at 9:29 Approved by: Daniel Roberts M.D. on 04/13/2020 at 9:32 CTA - brain/neck: Radiologist's Impression: [address] [id number] Scan ReportSigned Patient: Debi Bueno R#: [id number]: 8Acct:[id number]/Sex: 74 / FDate of Service: 04/13/20Loc: EDAccession Number: [id number] Procedure: CT angio head and neck Ordering Provider: Nuha Frederick D.O. PROCEDURE: CT ANGIO HEAD AND NECK INDICATIONS: double vision, vertigo TECHNIQUE: After the administration of intravenous contrast, 1 mm thick sections acquired from the aortic arch through the [place] of [place]. Post-contrast 4.5 mm thick sections then re-acquired from the foramen magnum to the vertex. 3-dimensional ctjohvc-skliplijg-mezkstdaid (MIP) and/or volume rendering reformats were acquired of the central intracranial vasculature and neck separately. COMPARISON: [facility], CT, CT HEAD/BRAIN WO CON, 04/13/2020, 9:15. FINDINGS: Image quality: Excellent. BRAIN: The ventricular system and cortical sulci demonstrate atrophy, consistent for the patient's stated age. There are areas of hypodensity within the periventricular and subcortical white matter. There is no acute intra-or extra axial fluid collection. No acute hemorrhage, mass lesion or midline shift. Low-attenuation focus is noted within the right taylor radiata suggestive of old ischemia. Brainstem is unremarkable. Globes are symmetrical. Sinuses are aerated. Osseous structures are intact. HEAD CT ANGIOGRAPHY: Anterior circulation: Intracranial internal carotid arteries are normal in size and flow. The flow within the paired anterior cerebral arteries is normal and symmetric. The flow within the middle cerebral arteries is normal and symmetric. The anterior communicating artery is seen. No aneurysms are seen. Posterior circulation: Visualized portions of the vertebral arteries demonstrate normal caliber, and join to form a normal appearing basilar artery. Flow within the posterior cerebral arteries is normal and symmetric. No aneurysms are seen. NECK CT ANGIOGRAPHY: The origins of the left and right common and external carotid arteries demonstrate no areas of hemodynamically significant stenosis, vascular occlusion or aneurysmal dilation. Prominent calcifications are noted at the origin of the common carotid artery. There is narrowing with irregular wall margins and calcifications at the origin of the right internal carotid artery measuring approximately 50%. Prominent calcifications are also noted at the origin of the left internal carotid artery also measuring up approximately 50% stenosis. Calcifications are noted to extend to the distal common carotid artery bilaterally. Origins of the left and right vertebral arteries demonstrate no areas of hemodynamically significant stenosis, vascular occlusion or aneurysmal dilation. Aortic arch demonstrates conventional anatomy. Limited, visualized portions of the subclavian vasculature are unremarkable. IMPRESSION: 1. No acute intracranial process. 2. Moderate atrophy and chronic microvascular ischemic changes. 3. No areas of hemodynamically significant stenosis, vascular occlusion or aneurysmal dilation within the anterior or posterior circulation. 4. Approximate 50% stenosis at the origin of the internal carotid arteries bilaterally with noted calcification. In addition, wall irregularity is noted on the right as above. Any quantitative measurements of stenosis were performed using NASCET criteria. Dictated by: Olinda Anthony M.D. on 04/13/2020 at 11:02 Approved by: Olinda Anthony M.D. on 04/13/2020 at 11:36 ECG Data Attestation: I personally reviewed and interpreted this ECG as follows: Interpretation: Sinus rhythm rate of 87, P are 152 QRS is 78 QTC 454. Q-wave present no ST elevation appreciated. Patient has prior EKG from 08/24/2013 which appears similar rhythm and ST segments. MDM Narrative Medical decision making narrative: This is a 74-year-old female who comes in with complaint of chest pain last night with an indeterminate troponin today but no acute EKG changes. Those symptoms have resolved but this morning upon awake bran she noted that she had vertigo like symptoms and double vision. Her double vision has improved but she still has blurry vision and vertigo symptoms. These are not increased with movement. Concern for neurologic cause is high on my differential. She is outside the window for tPA as her last normal was 9:00 p.m. yesterday. Show a clear cause for her symptoms. Initial head CT and chest x-ray showed no acute changes, CTA shows mild 50% stenosis with some irregularity. Discussed with neurology, Dr. Villagomez through [facility] he suspects possible brainstem small vessel ischemia. And recommend keeping blood pressure a little bit higher. Continue with aspirin and possibly initiating dual pl atelet therapy as well as MRI for further eval. Dr. Calderon accepts for obsevation. Discharge Plan Departure Patient Disposition: Admitted as Observation Clinical Impression: Acute CVA (cerebrovascular accident), Hypertension Admit Date/Time: 04/13/20 13:16 Admit Provider: Chester Spencer
[2020-04-13 10:24] LABS: COVID19 -Nasal RAPID Negative (Negative)
[2020-04-13 10:48] LABS: Bacteria Urine None Seen; RBC Urine None Seen (0-5/HPF); WBC Urine None Seen (0-5/HPF)
[2020-04-13] MEDS: ASPIRIN 81 MG CHEW TAB 324 MG PO (10:53)
[2020-04-13] MEDS: PROPARACAINE 0.5% OPHTH SOL 1 DROPS EYE-BOTH (10:53)
[2020-04-13 10:54] LABS: Culture Indicated Urine Cult Not Indicated; Squamous Epithelial Cell Urine 5-10 /HPF (0-5/HPF); Transitional Epi Cells Urine 10-30/HPF (0-5/HPF)
[2020-04-13] MEDS: SODIUM CHLORIDE 0.9% 1,000 ML 125 ML IV (10:54)
--- NOTE | 2020-04-13 10:56 | DI.CT.S_ITS ---
PROCEDURE: CT ANGIO HEAD AND NECK INDICATIONS: double vision, vertigo TECHNIQUE: After the administration of intravenous contrast, 1 mm thick sections acquired from the aortic arch through the [place]. Post-contrast 4.5 mm thick sections then re-acquired from the foramen magnum to the vertex. 3-dimensional uceyhxt-ntydjjlkv-wlpvwemrjr (MIP) and/or volume rendering reformats were acquired of the central intracranial vasculature and neck separately. COMPARISON: [facility], CT, CT HEAD/BRAIN WO CON, 04/13/2020, 9:15. FINDINGS: Image quality: Excellent. BRAIN: The ventricular system and cortical sulci demonstrate atrophy, consistent for the patient's stated age. There are areas of hypodensity within the periventricular and subcortical white matter. There is no acute intra-or extra axial fluid collection. No acute hemorrhage, mass lesion or midline shift. Low-attenuation focus is noted within the right taylor radiata suggestive of old ischemia. Brainstem is unremarkable. Globes are symmetrical. Sinuses are aerated. Osseous structures are intact. HEAD CT ANGIOGRAPHY: Anterior circulation: Intracranial internal carotid arteries are normal in size and flow. The flow within the paired anterior cerebral arteries is normal and symmetric. The flow within the middle cerebral arteries is normal and symmetric. The anterior communicating artery is seen. No aneurysms are seen. Posterior circulation: Visualized portions of the vertebral arteries demonstrate normal caliber, and join to form a normal appearing basilar artery. Flow within the posterior cerebral arteries is normal and symmetric. No aneurysms are seen. NECK CT ANGIOGRAPHY: The origins of the left and right common and external carotid arteries demonstrate no areas of hemodynamically significant stenosis, vascular occlusion or aneurysmal dilation. Prominent calcifications are noted at the origin of the common carotid artery. There is narrowing with irregular wall margins and calcifications at the origin of the right internal carotid artery measuring approximately 50%. Prominent calcifications are also noted at the origin of the left internal carotid artery also measuring up approximately 50% stenosis. Calcifications are noted to extend to the distal common carotid artery bilaterally. Origins of the left and right vertebral arteries demonstrate no areas of hemodynamically significant stenosis, vascular occlusion or aneurysmal dilation. Aortic arch demonstrates conventional anatomy. Limited, visualized portions of the subclavian vasculature are unremarkable. IMPRESSION: 1. No acute intracranial process. 2. Moderate atrophy and chronic microvascular ischemic changes. 3. No areas of hemodynamically significant stenosis, vascular occlusion or aneurysmal dilation within the anterior or posterior circulation. 4. Approximate 50% stenosis at the origin of the internal carotid arteries bilaterally with noted calcification. In addition, wall irregularity is noted on the right as above. Any quantitative measurements of stenosis were performed using NASCET criteria. Dictated by: Olinda Anthony M.D. on 04/13/2020 at 11:02 Approved by: Olinda Anthony M.D. on 04/13/2020 at 11:36
[2020-04-13] MEDS: LABETALOL 20 MG/4 ML SYRINGE 10 MG IV (11:08)
[2020-04-13 12:28] LABS: Thyroid Stimulating Hormone 4.12 uIU/mL (0.47-4.68)
[2020-04-13] MEDS: CHLORTHALIDONE 25 MG TABLET PO (13:18)
[2020-04-13] MEDS: AMLODIPINE 5 MG TABLET 10 MG PO (13:18)
--- NOTE | 2020-04-13 13:23 | PC.NURSE ---
Pt states that she is starting to feel much less dizzy
--- NOTE | 2020-04-13 15:01 | PC.NURSE ---
Assess- Patient is alert and oriented x3. She denies pain. States that her r.eye is still having some issues with vision. She does not have double vision anymore. BP 167/100 and aware, he states that he wants her systolic below 180. She denies chest pain, sob, or dizziness. Just back from MRI.
--- NOTE | 2020-04-13 15:51 | PM.HP.1 ---
History of Present Illness History of Present Illness Date Patient Seen: 04/13/20 Time Patient Seen: 15:51 Chief complaint: Dizziness Narrative: Debi Bueno is a 74-year-old female with a past medical history of hypertension, COPD, hyperlipidemia, CAD (no stents, [facility] in 2007 per chart review) who presented to the emergency room with double vision and dizziness. Patient states that yesterday evening she had a pain in her right chest as well as right neck and back, radiating a little bit into her head. She went to sleep and woke up this morning very early without pain but extremely dizzy with blurred vision. She states the blurry vision is more like seeing double, and the dizziness was constant and not affected by movement. She denied any issues with speech, weakness, or numbness. She states that her dizziness did improve, but her double/blurry vision has continued. She usually ambulates without any assistive devices but was unable to walk this morning and currently needs to hold on to rales in order to feel steady. She denied any recent fevers, chills, nausea, vomiting. She has had no chest pain or pressure today. She denies any shortness of breath or lower extremity edema. In the emergency room, the patient was markedly hypertensive with initial blood pressure of 212/94. Otherwise her vital signs were fairly unremarkable. Laboratory evaluation revealed an unremarkable CBC, and unremarkable chemistries. Troponin was minimally elevated at 0.063. EKG showed normal sinus rhythm without evidence of ischemia. ProBNP was also minimally elevated at 296. TSH was unremarkable at 4.12. Urinalysis was contaminated. COVID-19 testing was negative. Patient History Medical History (Updated 04/13/20 @ 17:00 by Chester Spencer DO) COPD (chronic obstructive pulmonary disease) Degenerative joint disease of left hip HLD (hyperlipidemia) Hypertension PVD (peripheral vascular disease) with claudication Surgical History Status post delivery Family & Social History Safety & Behavioral: Feels Safe in Current Yes Environment Been Physically Hurt or No Threatened By a Person Tobacco & Substance use: Smoking Status Former smoker alcohol intake frequency 0-2 drinks per day Substance Use Type does not use Meds Home Medications and Allergies Home Medications Medication Instructions Recorded Confirmed Type ALBUTEROL SULFATE (Ventolin / 2 puff INH Q4H PRN #0 06/11/10 04/13/20 History Proventil) aspirin 81 mg PO QDAY #1 04/20/11 04/13/20 History pravastatin [Pravachol] 40 mg PO PRN #0 tab 12/15/15 04/13/20 History prednisone 10 mg PO [facility] PRN #0 12/15/15 04/13/20 History albuterol sulfate 90 mcg/actuation 2 puff INHALATION Q6H PRN 11/25/17 04/13/20 History aerosol inhaler amlodipine 10 mg tablet 10 mg PO DAILY 11/25/17 04/13/20 History cholecalciferol (vitamin D3) 25 1,000 unit PO DAILY 11/25/17 04/13/20 History mcg (1,000 unit) capsule losartan 25 mg tablet 25 mg PO DAILY 11/25/17 04/13/20 History prednisone 50 mg PO [facility] PRN 04/13/20 04/13/20 History Allergies Allergy/AdvReac Type Severity Reaction Status Date / Time adhesive Allergy Unknown Verified 11/25/17 09:00 moxifloxacin Allergy Unknown Verified 11/25/17 09:00 atorvastatin [ATORVASTATIN] AdvReac Intermediate MUSCLE Verified 11/25/17 09:00 WEAKNESS lisinopril [LISINOPRIL] AdvReac Intermediate COUGH Verified 11/25/17 09:00 Review of Systems Review of Systems Narrative: All other systems reviewed with the patient and are negative unless otherwise stated. Exam Vital Signs (past 8 hours): - 04/13/20 09:01 04/13/20 09:06 04/13/20 09:25 Temperature 98.1 F Pulse Rate 96 H 94 H 95 H Respiratory Rate 20 16 Blood Pressure 212/94 H 215/95 H Pulse Oximetry 97 100 04/13/20 09:30 04/13/20 09:45 04/13/20 10:00 Temperature Pulse Rate 94 H 90 89 Respiratory Rate 19 20 19 Blood Pressure Pulse Oximetry 97 97 96 04/13/20 10:15 04/13/20 10:30 04/13/20 10:51 Temperature Pulse Rate 92 H 91 H 94 H Respiratory Rate 22 22 22 Blood Pressure 174/85 H Pulse Oximetry 97 04/13/20 11:00 04/13/20 11:08 04/13/20 11:15 Temperature Pulse Rate 86 84 85 Respiratory Rate 20 21 Blood Pressure 186/91 H 188/97 H 180/89 H Pulse Oximetry 96 04/13/20 11:28 04/13/20 11:33 04/13/20 11:36 Temperature Pulse Rate 79 95 H 85 Respiratory Rate 22 24 22 Blood Pressure 162/82 H 188/93 H Pulse Oximetry 94 96 04/13/20 11:45 04/13/20 12:00 04/13/20 12:15 Temperature Pulse Rate 79 83 80 Respiratory Rate 18 18 18 Blood Pressure 171/80 H 190/87 H 158/73 H Pulse Oximetry 97 97 95 04/13/20 12:18 04/13/20 12:30 04/13/20 12:45 Temperature Pulse Rate 81 77 92 H Respiratory Rate 16 20 Blood Pressure 158/73 H 161/75 H 202/91 H Pulse Oximetry 94 95 04/13/20 13:00 04/13/20 13:07 04/13/20 13:16 Temperature Pulse Rate 88 92 H 92 H Respiratory Rate 17 19 20 Blood Pressure 190/131 H Pulse Oximetry 97 96 04/13/20 13:17 04/13/20 13:30 04/13/20 13:31 Temperature Pulse Rate 90 91 H 91 H Respiratory Rate 20 23 22 Blood Pressure 168/81 H 188/88 H Pulse Oximetry 96 96 04/13/20 13:45 04/13/20 14:05 04/13/20 15:42 Temperature 98.5 F 98.6 F Pulse Rate 88 86 77 Respiratory Rate 22 17 16 Blood Pressure 170/81 H 167/100 H 123/76 Pulse Oximetry 96 96 94 Oxygen Delivery Method Nasal Cannula Narrative Exam Narrative: GENERAL APPEARANCE: Well developed, well nourished, in no acute distress. SKIN: Inspection of the skin reveals no rashes, ulcerations or petechiae. HEENT: Normocephalic atraumatic, extraocular muscles are intact, oropharynx is clear and mucous membranes are moist, neck is supple without adenopathy NECK: Supple and symmetric. There was no thyroid enlargement, and no tenderness, or masses were felt. CHEST: Normal AP diameter and normal contour without any kyphoscoliosis. LUNGS: Auscultation of the lungs revealed no wheezes, rhonchi, or rales. CARDIOVASCULAR: There was a regular rate and rhythm without any murmurs, gallops, rubs. Peripheral pulses were 2+ and symmetric. ABDOMEN: Soft and nontender with normal bowel sounds. No ascites was noted. MUSCULOSKELETAL: There was no tenderness or effusions noted. Muscle strength and tone were normal. EXTREMITIES: No cyanosis, clubbing or edema. NEUROLOGIC: Alert and oriented x 3. Normal affect. Gait was normal. Strength is +5/5 in the Upper Extremities and Lower Extremities Bilaterally. Sensation to touch was normal. Objective ECG Impression: normal sinus rhythm without evidence of ischemia Imaging MRI - head: Radiologist's impression: Diffuse small white matter changes, probably represent chronic microvascular ischemic disease, versus statistically less likely demyelination or other infectious, inflammatory, neurodegenerative etiology, technically nonspecific. No acute ischemia CTA neck: Radiologist's impression: IMPRESSION: 1. No acute intracranial process. 2. Moderate atrophy and chronic microvascular ischemic changes. 3. No areas of hemodynamically significant stenosis, vascular occlusion or aneurysmal dilation within the anterior or posterior circulation. 4. Approximate 50% stenosis at the origin of the internal carotid arteries bilaterally with noted calcification. In addition, wall irregularity is noted on the right as above. Chest x-ray: My impression: No acute disease Radiologist's impression: IMPRESSION: 1. No acute cardiopulmonary disease. CT scan - head: Radiologist's impression: FINDINGS: Image quality: Excellent. CSF spaces: Basal cisterns are patent. No extra-axial fluid collections. The ventricles are symmetric in size and shape. Brain: No intracranial bleeds or masses. There is cerebral volume loss for age, with resultant ventricular and sulcal prominence. There are periventricular and deep white matter chronic small vessel ischemic changes. Chronic right taylor radiata lacunar infarct. Small chronic bilateral basal ganglia and subinsular white matter lacunar infarcts. There is intracranial internal carotid artery atherosclerosis. Skull and face: Calvarium and visualized facial bones appear intact, without suspicious lesions. Sinuses: Visualized sinuses and mastoids are clear. IMPRESSION: No acute intracranial disease process. Labs Result Diagrams: 04/13/20 09:05 04/13/20 09:05 Labs: Laboratory Results - last 24 hr 04/13/20 04/13/20 04/13/20 09:05 09:05 09:05 WBC 6.0 RBC 4.69 Hgb 13.4 Hct 41.3 MCV 87.9 MCH 28.6 MCHC 32.5 RDW 13.1 Plt Count 360 Neut % (Auto) 58.3 Lymph % (Auto) 26.6 [place] % (Auto) 11.2 Eos % (Auto) 3.4 Baso % (Auto) 0.5 Neut # (Auto) 3500 Lymph # (Auto) 1600 [place] # (Auto) 700 Eos # (Auto) 200 Baso # (Auto) 0 PT 11.3 INR 1.0 Sodium 138 Potassium 3.7 Chloride 100 Carbon Dioxide 32 BUN 11 Creatinine 0.58 Estimated GFR > 60.0 BUN/Creatinine Ratio 19.0 Glucose 101 Calcium 9.5 Total Bilirubin 0.7 AST 39 H ALT 23 Alkaline Phosphatase 113 Troponin I 0.063 H NT-Pro-B Natriuret Pep Total Protein 8.7 H Albumin 4.6 Globulin 4.1 Albumin/Globulin Ratio 1.1 TSH Urine RBC Urine WBC Ur Squamous Epith Cells Ur Transition Epith Cell Urine Bacteria Ur Culture Indicated? SARS-CoV-2 (PCR) 04/13/20 04/13/20 04/13/20 09:05 09:05 10:03 WBC RBC Hgb Hct MCV MCH MCHC RDW Plt Count Neut % (Auto) Lymph % (Auto) [place] % (Auto) Eos % (Auto) Baso % (Auto) Neut # (Auto) Lymph # (Auto) [place] # (Auto) Eos # (Auto) Baso # (Auto) PT INR Sodium Potassium Chloride Carbon Dioxide BUN Creatinine Estimated GFR BUN/Creatinine Ratio Glucose Calcium Total Bilirubin AST ALT Alkaline Phosphatase Troponin I NT-Pro-B Natriuret Pep 296 H Total Protein Albumin Globulin Albumin/Globulin Ratio TSH 4.12 Urine RBC Urine WBC Ur Squamous Epith Cells Ur Transition Epith Cell Urine Bacteria Ur Culture Indicated? SARS-CoV-2 (PCR) Negative 04/13/20 10:41 WBC RBC Hgb Hct MCV MCH MCHC RDW Plt Count Neut % (Auto) Lymph % (Auto) [place] % (Auto) Eos % (Auto) Baso % (Auto) Neut # (Auto) Lymph # (Auto) [place] # (Auto) Eos # (Auto) Baso # (Auto) PT INR Sodium Potassium Chloride Carbon Dioxide BUN Creatinine Estimated GFR BUN/Creatinine Ratio Glucose Calcium Total Bilirubin AST ALT Alkaline Phosphatase Troponin I NT-Pro-B Natriuret Pep Total Protein Albumin Globulin Albumin/Globulin Ratio TSH Urine RBC None seen Urine WBC None seen Ur Squamous Epith Cells 5-10 /hpf H Ur Transition Epith Cell 10-30/hpf H Urine Bacteria None seen Ur Culture Indicated? Cult not indicated SARS-CoV-2 (PCR) Assessment & Plan Assessment & Plan narrative: Debi Bueno is a 74-year-old female with a past medical history of hypertension, COPD, hyperlipidemia, CAD (no stents, [facility] in 2007 per chart review) who presented to the emergency room with double vision and dizziness persistent since this morning, last known normal was 9:00 a.m. yesterday evening. All head and neck imaging has been unremarkable including MRI of her brain showing no acute ischemia. 1. blurry vision and dizziness, acute, present on admission -patient has continued symptoms including double vision and dizziness. Dizziness is not seem to be worsened with standing and is likely related to her double vision. Finger to nose testing is equally diminished bilaterally. -check an ESR to rule out giant cell arteritis given her headache, consider steroids if elevated, although patient lacks headache at this time and diagnosis seems less likely. -differential further includes complex migraine as the patient does have a history of dizziness and headache in the past, TIA, and uncontrolled hypertension. -PT / OT evaluation -trial of meclizine to see if symptom relief -continue ASA daily, and statin 2. HTN, chronic, active - patient with markedly elevated BP on admission. Given labetalol in the ER in addition to chlorthalidone and amldoipine. Now normal on the floor. - continue home losartan and amlodipine and adjust as necessary. 3. HLD, chronic - continue home statin therapy 4. COPD, chronic - does not represent acute exacerbation, no complaints at this time. Albuterol nebs as needed. Dispo: Admitted under observation status as her stay is not expected to exceed 2 midnights Code: Full, surrogate decision maker is the patient's son DVT: Lovenox daily COVID-19 COVID-19 status: Negative
--- NOTE | 2020-04-13 16:05 | PT.IIE ---
Surgical History (Last Reviewed 04/13/20 @ 11:28 by Nuha Frederick DO) Status post delivery Physical Therapy Inpatient Evaluation/Re-Eval M1 PT/OT-IP Prior Functional Status Start: 04/13/20 16:35 Freq: NEEDED Status: Active Protocol: Document 04/13/20 16:05 AB (Rec: 04/13/20 16:53 AB [id number]) Medical Review Prior Functional Status Medical History Reviewed Yes Communication able to make needs known Mobility and Gait stated that she is independent with all mobilities and ambulation without AD Social History Household Members spouse,children Living Arrangements House Number of Floors (Floors) Two Floors Number of Stairs To Enter/Railing? 1 step to enter and stays on main level of the house Home Environment Standard Height Toilet,Walk in Shower Home Equipment Front Wheel Walker,Four Wheel Walker,Straight Cane Additional Social History Comment spouse will not be able to assist pt but daughter will be able to M2 PT-IP Current Condition Start: 04/13/20 16:35 Freq: NEEDED Status: Active Protocol: Document 04/13/20 16:05 AB (Rec: 04/13/20 16:53 AB [id number]) Physical Therapy Current Condition Current Condition Evaluation Date 04/13/20 Treatment Diagnosis CVA; difficulty in walking Onset Date 04/13/20 Precautions Other Precautions falls M3 PT-IP Subjective Start: 04/13/20 16:35 Freq: NEEDED Status: Active Protocol: Document 04/13/20 16:05 AB (Rec: 04/13/20 16:53 AB [id number]) Subjective Physical Therapy Visit Type Type Initial Evaluation Visit Start Time 16:05 Visit Stop Time 16:32 Total Visit Minutes 27 Number of DATE PITTER Visits 0 Physical Therapy Visit Comments Patient Comments agreeable to do PT; continues to c/o dizziness and double vision; stated that she has a hard time keeping her eyes open and has to close one eye to be able to see better due to double vision Therapy Pain Assessment Pain Present Pain Present Denied Pain M4 PT-IP Mobility and Gait Start: 04/13/20 16:35 Freq: NEEDED Status: Active Protocol: Document 04/13/20 16:05 AB (Rec: 04/13/20 16:53 AB [id number]) PT-Bed Mobility Assessment Supine to Sit Supine to Sit Standby Assistance Sit to Supine Sit to Supine Standby Assistance PT-Transfer Assessment Sit to and From Stand Sit to and from Stand Standby Assistance Equipment Transfer Assistive Device None,Gait Belt Comments Mobility Comments BP in supine: 155/71 O2 sat 93 % MT 84 bpm. pt can be impulsive. completed supine to sit SBA, sit to stand SBA. ambulated in room without AD CGA with (+) LOB to the L and pt tending to hold on to bed/ wall for support. c/o dizziness and double vision needing to close one eye to be able to focus during ambulation. assessed ambulation using FWW CGA and cues. ambulation is steadier wtih FWW but continues to have LOB towards the L side. cued to slow down for safety. pt agreed to use FWW at this time . requested to go back to bed and completed sit to supine SBA. positioned in bed. bed alarm on. call light and table placed within reach. pt has L upper arm above the elbow skin tear. informed nurse. pt stated that she scraped it on the MRI table. informed NAC regarding pt's mobility level and use of FWW for safety. Gait Assessment Gait Gait Assistance Required: Contact Guard Assist,1 Person Assist Distance (Feet) 25 Able to Maintain Weight Bearing Status Yes During Gait Assistive Devices Assistive Device None,Gait Belt,Front Wheeled Walker Orthotic/Prosthetic Devices or Brace: No Gait Deviations General Gait Pattern Ataxic,Decreased Stride Length ,Decreased Feet Clearance Factors Limiting Gait Function Factors Limiting Gait Function Decreased Strength,Poor Balance,Poor Safety Awareness Comments Gait Comments pls refer to mobility section for details PT-Balance Assessment Sitting Balance and Reactions Static Sitting Balance Ability Good Dynamic Sitting Balance Ability Fair Standing Balance and Reactions Static Standing Balance Ability Fair Dynamic Standing Balance Ability Fair Device Used without AD M5 PT-IP Objective Assessments Start: 04/13/20 16:35 Freq: NEEDED Status: Active Protocol: Document 04/13/20 16:05 AB (Rec: 04/13/20 16:53 AB [id number]) Orientation Orientation/Cognition Level of Alertness Alert Orientation Name,Place,Situation Language Function Ability No Deficits Noted Safety Awareness Decreased Safety Awareness Gross Range of Motion Lower Extremity ROM Assessment Within Functional Limits Strength Lower Extremity Strength Hip 4-/5 Knee 4-/5 Sensation Assessment Sensation Gross Sensation WNL M6 PT-IP Treatment Start: 04/13/20 16:35 Freq: NEEDED Status: Active Protocol: Document 04/13/20 16:05 AB (Rec: 04/13/20 16:53 AB [id number]) Physical Therapy Treatment Education Education Provided Safety M7 PT-IP Assessment and Plan Start: 04/13/20 16:35 Freq: NEEDED Status: Active Protocol: Document 04/13/20 16:05 AB (Rec: 04/13/20 16:53 AB [id number]) PT Summary Assessment and Plan Potential Rehabilitation Potential Good Status of Condition at Evaluation Evolving Summary Impairments Balance,Coordination,Bed Mobility,Transfers,Gait, Activity Tolerance Assessment Summary pt requiring CGA with mobility and recommending use of FWW at this time for safety due to LOB towards the L side. pt also can be impulsive and requires cues to slow down. pt will have her daughter to assist her at home. will continue to assess progress but will benefit from outpt PT . Goals Bed Mobility Goal Independent Transfer Goal Independent,Front Wheeled Walker Gait Goal Independent,Front Wheel Walker Gait Distance 200 Other Goals ambulation without AD 300 ft mod I up/down 1 step without AD SBA Days to Meet Goals 5 Frequency of Treatment Frequency Of Treatment Once a Day Treatment Plan Physical Therapy Treatment Plan Bed Mobility Training,Transfer Training,Gait Training, Therapeutic Exercise,Balance Retraining,Discharge Planning, Neuromuscular Re-ed, Coordination Retraining Recommendations To Nursing Amount of Assist Needed 1 Person Assist Discharge Recommendations PT Discharge Recommendations Home with Assistance, Outpatient PT Transportation Needs at Discharge Private Vehicle
[2020-04-13 18:49] LABS: Troponin I 0.058 ng/mL (0.01-0.034)
[2020-04-13 18:52] LABS: Erythrocyte Sedimentation Rate 43 MM/HR (0-20)
[2020-04-13] MEDS: MECLIZINE HCL 12.5 MG TABLET 25 MG PO (19:30)
[2020-04-13] MEDS: PRAVASTATIN 20 MG TABLET 40 MG PO (20:59)
[2020-04-13 21:29] LABS: C-Reactive Protein Quant 0.8 mg/dL (<1.0)
[2020-04-13] MEDS: predniSONE 20 MG TABLET 60 MG PO (22:47)
--- NOTE | 2020-04-14 00:46 | PC.NURSE ---
Addendum entered by Jing Herbert R.N. 04/14/20 04:25: Patient up to bathroom and initially stated vision was blurry in left eye but when going back to bed stated it was improving so she felt it was only sleep in my eye. Denied any dizziness. Original Note: patient is alert and oriented. Denies current vision problems and specifically denies double vision. States she still had some dizziness earlier when up to bathroom but denies any just lying in bed. Breath sounds diminished but CTA with RA sat of 92%. HRR w/telemetry reading of SR. Denies nausea. BT present and abdomen is soft. Complains of burning with urination but denies frequency or urgency; UA was sent to lab on evening shift for urine culture. Able to move self in bed. Up to bathroom on previous shift with walker and SBA. Denies pain. Fall risk score is high and bed alarm is activated.
[2020-04-14 03:45] VITALS: BP 128/73; PULSE 84; RESP 20; TEMP 36.4; O2SAT 93
[2020-04-14 03:47] VITALS: O2SAT 93
[2020-04-14 06:55] LABS: Add Manual Diff / Slide Review NO; Basophils Absolute Auto 0 /uL (0-100); Basophils Percent Auto 0.4 % (0-2); Eosinophils Absolute Auto 0 /uL (0-450); Eosinophils Percent Auto 0.2 % (2-4); Hematocrit 40.6 % (36-46); Hemoglobin 12.9 g/dL (12.0-16.0); Lymphocytes Absolute Auto 700 /uL (1100-4500); Lymphocytes Percent Auto 14.2 % (25-40); Mean Corpuscular HGB Conc 31.9 % (30-36); Mean Corpuscular Volume 87.9 fL (80-100); Monocytes Absolute Auto 100 /uL (0-900); Monocytes Percent Auto 1.9 % (3-14); Neutrophils Absolute Auto 4000 /uL (1500-7000); Neutrophils Percent Auto 83.3 % (50-75); Platelet Count 358 X10^3/uL (150-400); Red Blood Cell Count 4.62 X10^6/uL (4.0-5.2); Red Cell Distribution Width 13.3 % (11.6-14.8); White Blood Cell Count 4.7 X10^3/uL (4.5-11.0)
[2020-04-14 07:06] LABS: BUN Creatinine Ratio 18.8 (6-22); Blood Urea Nitrogen 13 mg/dL (7-17); Calcium 9.2 mg/dL (8.4-10.2); Carbon Dioxide 29 mmol/L (22-32); Chloride 98 mmol/L (98-107); Estimated Glomerular Filt Rate > 60.0 mL/min (>60); Glucose 152 mg/dL (80-110); HEMOLYSIS < 15 (0-50); Hemoglobin A1C% w Est Avg Glu 5.7 % (4.0-6.0); Magnesium 1.7 mg/dL (1.6-2.3); Sodium 134 mmol/L (137-145)
[2020-04-14 07:37] LABS: TSH w/ Reflex to FT4 0.95 uIU/mL (0.47-4.68)
[2020-04-14 08:02] VITALS: BP 132/82; PULSE 92; RESP 16; TEMP 37.3; O2SAT 91
[2020-04-14 08:37] VITALS: BP 133/82; PULSE 92
[2020-04-14] MEDS: AMLODIPINE 5 MG TABLET 10 MG PO (08:37)
[2020-04-14] MEDS: LOSARTAN 25 MG TABLET PO (08:37)
[2020-04-14] MEDS: ASPIRIN EC 81 MG TABLET PO (08:37)
[2020-04-14] MEDS: SODIUM CHLORIDE 0.9% FLUSH 10 ML IV (08:38)
--- NOTE | 2020-04-14 11:27 | PT.IPTN ---
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 M4 PT-IP Mobility and Gait Start: 04/13/20 16:35 Freq: NEEDED Status: Discharge Protocol: Document 04/14/20 11:09 KS (Rec: 04/14/20 13:45 [place] [id number]) PT-Bed Mobility Assessment Supine to Sit Supine to Sit Standby Assistance Sit to Supine Sit to Supine Standby Assistance PT-Transfer Assessment Sit to and From Stand Sit to and from Stand Standby Assistance Equipment Transfer Assistive Device None,Gait Belt Transfers Transfer Destination Bed Transfer Technique pt ambulated w/ FWW Transfer Ability Level of Assist Standby Assistance Comments Mobility Comments Pt in bed upon arrival from therapy and agreeable to perform ambulation and stairs. SBA for sup<>sit and sit<> stand w/o AD. Pt then ambulated to platform step w/o AD and performed w/ CGA w/ slight unsteadiness towards L. Pt then agreed to trial platform steps w/ FWW and agreed she felt safe w/ FWW. Pt confirms she has FWW and agrees to use at home. O2 >94% throughout treatment. Gait Assessment Gait Gait Assistance Required: Standby Assistance,Contact Guard Assist,1 Person Assist Distance (Feet) 30 Able to Maintain Weight Bearing Status Yes During Gait Assistive Devices Assistive Device None,Gait Belt,Front Wheeled Walker Orthotic/Prosthetic Devices or Brace: No Gait Deviations General Gait Pattern Ataxic,Decreased Stride Length ,Decreased Feet Clearance Factors Limiting Gait Function Factors Limiting Gait Function Decreased Strength,Poor Balance,Poor Safety Awareness Comments Gait Comments Pt ambulated ~30 ft w/ amd w/o FWW. Pt continues to have slight unsteadiness w/o FWW and agrees to use FWW at home. Stair Climbing Assessment Evaluation Level of Assist On Stairs Contact Guard Assistance,1 Person Assistance Devices Stair Climbing Assistive Devices None,Front Wheel Walker Technique/Endurance Stair Climbing Direction Ascend and Descend Stair Climbing Technique Step to Step Number of Steps Climbed 1 Stair Climbing Set # Repetitions (reps) 2 Comments Stair Climbing Comments Pt ascended/descended 1 platform step x2 w/ and w/o FWW. Increased stability and safety w/ FWW. Pt agrees to use FWW at home. PT-Balance Assessment Sitting Balance and Reactions Static Sitting Balance Ability Good Dynamic Sitting Balance Ability Fair Standing Balance and Reactions Static Standing Balance Ability Fair Dynamic Standing Balance Ability Fair Device Used without AD M5 PT-IP Objective Assessments Start: 04/13/20 16:35 Freq: NEEDED Status: Discharge Protocol: Document 04/13/20 16:05 AB (Rec: 04/13/20 16:53 AB [id number]) Orientation Orientation/Cognition Level of Alertness Alert Orientation Name,Place,Situation Language Function Ability No Deficits Noted Safety Awareness Decreased Safety Awareness Gross Range of Motion Lower Extremity ROM Assessment Within Functional Limits Strength Lower Extremity Strength Hip 4-/5 Knee 4-/5 Sensation Assessment Sensation Gross Sensation WNL M6 PT-IP Treatment Start: 04/13/20 16:35 Freq: NEEDED Status: Discharge Protocol: Document 04/14/20 11:09 KS (Rec: 04/14/20 13:45 KS [id number]) Physical Therapy Treatment Education Education Provided Safety M7 PT-IP Assessment and Plan Start: 04/13/20 16:35 Freq: NEEDED Status: Discharge Protocol: Document 04/14/20 11:09 KS (Rec: 04/14/20 13:45 [place] [id number]) PT Summary Assessment and Plan Potential Rehabilitation Potential Good Status of Condition at Evaluation Evolving Summary Impairments Balance,Coordination,Bed Mobility,Transfers,Gait, Activity Tolerance Progress Towards Goals Progressing Toward Goals Assessment Summary Pt SBA for bed mobility and transfers, CGA for ambulation and stairs. Pt ambulated ~30 ft and ascended/descended platform step w/ and w/o FWW. Pt had slight unsteadiness towards L side w/o FWW and demonstrated increased safety and balance w/ FWW and agrees to use FWW at home. She will benefit from outpatient rehab to improve proprioceptive awareness, balance, and strength. Goals Bed Mobility Goal Independent Transfer Goal Independent,Front Wheeled Walker Gait Goal Independent,Front Wheel Walker Gait Distance 200 Other Goals ambulation without AD 300 ft mod I up/down 1 step without AD SBA Days to Meet Goals 5 Frequency of Treatment Frequency Of Treatment Once a Day Treatment Plan Physical Therapy Treatment Plan Bed Mobility Training,Transfer Training,Gait Training, Therapeutic Exercise,Balance Retraining,Discharge Planning, Neuromuscular Re-ed, Coordination Retraining Recommendations To Nursing Amount of Assist Needed 1 Person Assist Discharge Recommendations PT Discharge Recommendations Home with Assistance, Outpatient PT Transportation Needs at Discharge Private Vehicle
[2020-04-14 11:35] VITALS: BP 119/69; PULSE 96; RESP 18; TEMP 36.6; O2SAT 93
[2020-04-14 11:38] VITALS: O2SAT 92
--- NOTE | 2020-04-14 12:51 | OT.IP.EVAL ---
Past Medical History (Last Updated 04/13/20 @ 17:00 by Chester Spencer DO) COPD (chronic obstructive pulmonary disease) Degenerative joint disease of left hip HLD (hyperlipidemia) Hypertension PVD (peripheral vascular disease) with claudication Surgical History (Last Reviewed 04/13/20 @ 17:01 by Chester Spencer DO) Status post delivery Occupational Therapy Inpatient Evaluation/Re-Eval M1 PT/OT-IP Prior Functional Status Start: 04/14/20 12:31 Freq: NEEDED Status: Active Protocol: Document 04/14/20 11:43 [facility] (Rec: 04/14/20 12:51 [facility] [id number]) Medical Review Prior Functional Status Medical History Reviewed Yes Communication able to make needs known Mobility and Gait stated that she is independent with all mobilities and ambulation without AD Activities of Daily Living and IADL's Pt states completely independent with all Adl ,IADL and is the caregiver for her . Social History Household Members spouse,children Living Arrangements House Number of Floors (Floors) Two Floors Number of Stairs To Enter/Railing? 1 step to enter and stays on main level of the house Home Environment Standard Height Toilet,Walk in Shower Home Equipment Front Wheel Walker,Four Wheel Walker,Straight Cane Additional Social History Comment spouse will not be able to assist pt but daughter will be able to M2 OT-IP Current Condition Start: 04/14/20 12:31 Freq: Status: Active Protocol: Document 04/14/20 11:43 [facility] (Rec: 04/14/20 12:51 [facility] [id number]) Occupational Therapy Current Condition Current Condition Evaluation Date 04/14/20 Treatment Diagnosis Double vision/dizziness Diagnosis Onset Date 04/13/20 M3 OT- IP Subjective and Pain Start: 04/14/20 12:31 Freq: Status: Active Protocol: Document 04/14/20 11:43 [facility] (Rec: 04/14/20 12:51 [facility] [id number]) OT- Subjective Occupational Therapy Visit Type Type Initial Evaluation Visit Start Time 11:43 Visit Stop Time 12:07 Total Visit Minutes 24 Occupational Therapy Visit Comments Patient Comments Pt agreed to do OT eval. Patient/Caregiver Goals TO go home. OT Pain Assessment Pain When Pain Assessed At Rest Pain Present Pain Present Denied Pain M4 OT- IP ADL's Start: 04/14/20 12:31 Freq: Status: Active Protocol: Document 04/14/20 11:43 [facility] (Rec: 04/14/20 12:51 [facility] [id number]) OT [id number] General Evaluation Self-Feeding Ability Independent OT ADL-Grooming Comments OT Grooming Comments Pt states did prior. OT ADL-Toileting General Evaluation Toileting Ability Independent OT ADL-Bathing Comments OT Bathing Comments Pt to shower later. M5 OT- IP IADL's Start: 04/14/20 12:31 Freq: Status: Active Protocol: Document 04/14/20 11:43 [facility] (Rec: 04/14/20 12:51 [facility] [id number]) OT-Instrumental Activities of Daily Living Home Safety Awareness Awareness of Need for Assistance at Home Good Awareness Ability to Problem Solve Emergency Able to Problem Solve Situations Medication Management Medication Management Comments Pt may need assist due to decreased vision and may have a hard time to read the labels on the medication bottles. Pt states to have her daughter assist. Money Management Money Management No Deficits Identified Meal Preparation Meal Preparation Comments Pt states her daughter to assist. Pitching Coach Pitching Coach Comments Pt states her daughter to assist. Driving Driving Concerns Identified Regarding Safety Driving Comments Pt agreed due to decreased vision will not drive for now and pt states to go and see an private eye. M6 OT- IP Functional Cognition Start: 04/14/20 12:31 Freq: Status: Active Protocol: Document 04/14/20 11:43 [facility] (Rec: 04/14/20 12:51 [facility] [id number]) Cognitive Factors Limiting Selfcare Function Cognitive Ability Level of Alertness Alert Patient Orientation Name,Age,Birthday,Month,Date, Year,Day of Week,Place, Situation Attention Span Ability Capable of Focused Attention, Capable of Sustained Attention Ability to Follow Commands Able to Follow Multi-Step Commands Memory Description No Deficits Noted Safety Awareness Underestimates Need for Assistance Cognitive Comments Cognitive Assessment Comments Pt able to follow multiple commands and able to answer all safety questions with 100% accuracy. Pt scored 114 seconds on Fowler making Part B which implies mild/mod impairment with visual attention, task switching, mental flexibility, executive thinking, however score may be influenced by her blurried / double vision at times as pt compensates by closing her right eye during the assessment. OT- Vision and Hearing OT- Hearing Assessment OT- Hearing Assessment WFL OT- Vision Assessment Visual Acuity Glasses All The Time Vision Assessment Comments Pt able to track however , both eyes not unison. M7 OT- IP Mobility and Balance Start: 04/14/20 12:31 Freq: Status: Active Protocol: Document 04/14/20 11:43 [facility] (Rec: 04/14/20 12:51 [facility] [id number]) OT- Bed Mobility Assessment Rolling Type of Rolling Roll to Left Level of Assistance Standby Assistance Supine to Sit Supine to Sit Assist Standby Assistance Sit to Supine Sit to Supine Assist Standby Assistance OT-Transfer Assessment Sit to and From Stand Sit to and from Stand Independent Transfers Transfer Ability Standby Assistance Comments Mobility Comments Distant SBA with no device. OT- Gait Assessment Comments Gait Ability Comments Distant SBA on level surfaces. OT- Balance Assessment Sitting Balance and Reactions Static Sitting Balance Ability Normal Dynamic Sitting Balance Ability Normal Standing Balance and Reactions Static Standing Balance Ability Good Dynamic Standing Balance Ability Fair M8 OT- IP Objective Assessments Start: 04/14/20 12:31 Freq: Status: Active Protocol: Document 04/14/20 11:43 [facility] (Rec: 04/14/20 12:51 [facility] [id number]) OT Gross Range of Motion Upper Extremity Range of Motion Assessment Within Functional Limits OT- Coordination Assessment Upper Extremity Finger to Nose Test Within Functional Limits OT-Muscle Tone Assessment Muscle Tone WNL Yes M9 OT- IP Assessment and Plan Start: 04/14/20 12:31 Freq: Status: Active Protocol: Document 04/14/20 11:43 [facility] (Rec: 04/14/20 12:51 [facility] [id number]) OT Summary Assessment and Plan Potential Rehabilitation Potential Good Analytic Complexity at Evaluation Low Summary OT Impairments Balance,Shower Transfers, Activity Tolerance Progress Towards Goals Progressing Toward Goals Assessment Summary Pt low complexity and main deficits are blurred vision and pt tends to close her right eye to help compensate for her double vision. Pt states to go and see an private eye soon. Suggested for pt not to drive at this time and have daughter to assist her with medication needs and set-up as her vision is still blurred and seeing double at times. Pt's daughter will available to assist at house. Frequency of Treatment Frequency Of Treatment Once a Day Discharge Recommendations OT Discharge Recommendations Home with Assistance Transportation Needs at Discharge Private Vehicle
--- NOTE | 2020-04-14 12:55 | P.DS_ITS ---
History of Present Illness History of Present Illness Date Patient Seen: 04/14/20 Time Patient Seen: 08:15 Chief complaint: Dizziness Narrative: Debi Bueno is a 74-year-old female with a past medical history of hypertension, COPD, hyperlipidemia, CAD (no stents, LHC in 2007 per chart review) who presented to the emergency room with double vision and dizziness. Patient states that yesterday evening she had a pain in her right chest as well as right neck and back, radiating a little bit into her head. She went to sleep and woke up this morning very early without pain but extremely dizzy with blurred vision. She states the blurry vision is more like seeing double, and the dizziness was constant and not affected by movement. She denied any issues with speech, weakness, or numbness. She states that her dizziness did improve, but her double/blurry vision has continued. She usually ambulates without any assistive devices but was unable to walk this morning and currently needs to hold on to rales in order to feel steady. She denied any recent fevers, chills, nausea, vomiting. She has had no chest pain or pressure today. She denies any shortness of breath or lower extremity edema. In the emergency room, the patient was markedly hypertensive with initial blood pressure of 212/94. Otherwise her vital signs were fairly unremarkable. Laboratory evaluation revealed an unremarkable CBC, and unremarkable chemistries. Troponin was minimally elevated at 0.063. EKG showed normal sinus rhythm without evidence of ischemia. ProBNP was also minimally elevated at 296. TSH was unremarkable at 4.12. Urinalysis was contaminated. COVID-19 testing was negative. Discharge Providers Provider Date of admission: 04/13/20 13:16 Discharge Date: 04/14/20 Primary care physician: Darrel Mena MD Consults: 04/13/20 15:54 Consult to Occupational Therapy Evaluate & Treat Comment: Physician Instructions: Evaluate and treat Consult to Physical Therapy Evaluate & Treat Comment: Physician Instructions: Evaluate and Treat 04/14/20 08:07 Consult to Respiratory Therapy Evaluate & Treat Comment: Physician Instructions: Evaluate and treat Discharge provider: Chester Spencer DO Summary Hospital Course Discharge Diagnosis: Please see hospital course by problem list noted below Hospital Course: Debi Bueno is a 74-year-old female with a past medical history of hypertension, COPD, hyperlipidemia, CAD (no stents, LHC in 2007 per chart review) who presented to the emergency room with double vision and dizziness. All head and neck imaging has been unremarkable including MRI of her brain showing no acute ischemia. 1. blurry vision and dizziness, acute, present on admission -patient has continued symptoms including double vision and dizziness though she states this is improving. Dizziness is not seem to be worsened with standing and is likely related to her double vision. Finger to nose testing is equally diminished bilaterally. -ESR mildly elevated at 43, called Rheumatology for possible giant cell arteritis. Stated equivocal history, but recommended CRP and if positive refer for biopsy as an outpatient with steroids at 1mg / kg dosing. Patient was given one dose of prednisone after consultation, but stopped steroids once CRP came back normal as likelihood of GCA is very unlikely given normal CRP. -differential further includes complex migraine as the patient does have a history of dizziness and headache in the past, TIA, and uncontrolled hypertension. -PT / OT evaluation recommended outpatient services. -continue patient's ASA daily, and statin medication -recommended urgent evaluation as an outpatient by an american history teacher, patient stated she would schedule an appointment. 2. HTN, chronic, active - patient with markedly elevated BP on admission. Given labetalol in the ER in addition to chlorthalidone and amldoipine. then was normal on the floor. - continue home losartan and amlodipine upon discharge. 3. HLD, chronic - continue home statin therapy 4. COPD, chronic - does not represent acute exacerbation, no complaints at this time. continue home albuterol as needed. Exam Vital Signs (past 8 hours): - 04/14/20 08:02 04/14/20 08:37 04/14/20 11:35 Temperature 99.1 F 97.9 F Pulse Rate 92 H 92 H 96 H Respiratory Rate 16 18 Blood Pressure 132/82 133/82 119/69 Pulse Oximetry 91 93 04/14/20 11:38 Temperature Pulse Rate Respiratory Rate Blood Pressure Pulse Oximetry 92 Oxygen Delivery Method Room Air Oxygen Flow Rate 0 Narrative Exam Narrative: GENERAL APPEARANCE: Well developed, well nourished, in no acute distress. SKIN: Inspection of the skin reveals no rashes, ulcerations or petechiae. HEENT: Normocephalic atraumatic, extraocular muscles are intact, oropharynx is clear and mucous membranes are moist, neck is supple without adenopathy NECK: Supple and symmetric. There was no thyroid enlargement, and no tenderness, or masses were felt. CHEST: Normal AP diameter and normal contour without any kyphoscoliosis. LUNGS: Auscultation of the lungs revealed no wheezes, rhonchi, or rales. CARDIOVASCULAR: There was a regular rate and rhythm without any murmurs, gallops, rubs. Peripheral pulses were 2+ and symmetric. ABDOMEN: Soft and nontender with normal bowel sounds. No ascites was noted. MUSCULOSKELETAL: There was no tenderness or effusions noted. Muscle strength and tone were normal. EXTREMITIES: No cyanosis, clubbing or edema. NEUROLOGIC: Alert and oriented x 3. Normal affect. Gait was normal. Strength is +5/5 in the Upper Extremities and Lower Extremities Bilaterally. Sensation to touch was normal. reports of double vision improved with closing R eye. No visual field defect. Finger to nose testing is equally diminished bilaterally. Objective Labs Result Diagrams: 04/14/20 06:37 04/14/20 06:37 Labs: Laboratory Results - last 24 hr 04/13/20 04/13/20 04/13/20 18:01 18:01 18:01 WBC RBC Hgb Hct MCV MCH MCHC RDW Plt Count Neut % (Auto) Lymph % (Auto) Greer % (Auto) Eos % (Auto) Baso % (Auto) Neut # (Auto) Lymph # (Auto) Greer # (Auto) Eos # (Auto) Baso # (Auto) ESR 43 H Sodium Potassium Chloride Carbon Dioxide BUN Creatinine Estimated GFR BUN/Creatinine Ratio Glucose Hemoglobin A1c Calcium Magnesium Troponin I 0.058 H C-Reactive Protein 0.8 TSH 04/14/20 04/14/20 04/14/20 06:37 06:37 06:37 WBC 4.7 RBC 4.62 Hgb 12.9 Hct 40.6 MCV 87.9 MCH 28.0 MCHC 31.9 RDW 13.3 Plt Count 358 Neut % (Auto) 83.3 H D Lymph % (Auto) 14.2 L Greer % (Auto) 1.9 L Eos % (Auto) 0.2 L Baso % (Auto) 0.4 Neut # (Auto) 4000 Lymph # (Auto) 700 L Greer # (Auto) 100 Eos # (Auto) 0 Baso # (Auto) 0 ESR Sodium 134 L Potassium 4.0 Chloride 98 Carbon Dioxide 29 BUN 13 Creatinine 0.69 Estimated GFR > 60.0 BUN/Creatinine Ratio 18.8 Glucose 152 H Hemoglobin A1c 5.7 Calcium 9.2 Magnesium 1.7 Troponin I C-Reactive Protein TSH 04/14/20 06:37 WBC RBC Hgb Hct MCV MCH MCHC RDW Plt Count Neut % (Auto) Lymph % (Auto) Greer % (Auto) Eos % (Auto) Baso % (Auto) Neut # (Auto) Lymph # (Auto) Greer # (Auto) Eos # (Auto) Baso # (Auto) ESR Sodium Potassium Chloride Carbon Dioxide BUN Creatinine Estimated GFR BUN/Creatinine Ratio Glucose Hemoglobin A1c Calcium Magnesium Troponin I C-Reactive Protein TSH 0.95 [facility] Medical History (Updated 04/13/20 @ 17:00 by Chester Spencer DO) COPD (chronic obstructive pulmonary disease) Degenerative joint disease of left hip HLD (hyperlipidemia) Hypertension PVD (peripheral vascular disease) with claudication Surgical History Status post delivery Social History household members: spouse and children Smoking Status: Former smoker Discharge Plan Discharge Plan Patient Disposition: Home Provider Discharge Comment: You were admitted to the hospital with blurry vision, no immediate cause could be found but MRI was negative for any acute cause. Please follow up with an american history teacher as soon as possible. No medicat ion changes are recommended. You blood pressure was very high on admission, but on your regular medications remains normal today. Discharge orders & Medications Prescriptions: Continued ALBUTEROL SULFATE (Ventolin / Proventil) 2 puff INH Q4H PRN Qty: 0 RF: 0 aspirin 81 MG tablet,delayed release (DR/EC) 81 mg PO QDAY Qty: 1 RF: 0 pravastatin [Pravachol] 40 MG tablet 40 mg PO HS Qty: 0 RF: 0 prednisone 10 MG tablet 10 mg PO AMCC PRN (Reason: breathing) Qty: 0 RF: 0 prednisone 50 MG tablet 50 mg PO AMCC PRN (Reason: breathing) RF: 0 cholecalciferol (vitamin D3) 1,000 unit capsule 1,000 unit PO DAILY RF: 0 amlodipine 10 mg tablet 10 mg PO DAILY RF: 0 losartan 25 mg tablet 25 mg PO DAILY RF: 0 albuterol sulfate [Proventil HFA] 90 mcg/actuation HFA aerosol inhaler 2 puff INHALATION Q6H PRN (Reason: Dyspnea) RF: 0 Follow up/Referrals: Darrel Mena MD [Primary Care Provider] - Visit Report/Discharge Packet Instructions: Combating Dizziness in Older Adults, How to Prevent Falls, DI for Dizziness-Nonvertigo Discharge Data Primary Care Provider: Darrel Mena V Attending Provider: Chester Spencer VTE Deep Vein Thrombosis/Pulmonary Embolism Present on Admission: No
--- NOTE | 2020-04-14 13:03 | PC.NURSE ---
Day shift: Pt ambulating well and steady on her feet. Her spouse is on the way here now to pick her up. SHe has been d/c'd. IV is out and tele is off. SHe denies any chest pain. She is getting dressed now w/ help for [employer]. She has also just voided again. She sates I'm very happy to be going home today. Pt instructed to use call light and not get OOB w/o help from staff due to her admit Dx of dizziness. She agrees to this. Call light in reach.
--- NOTE | 2020-04-14 13:19 | PC.NURSE ---
Day shift: Paperwork signed and all questions answered. Pt has all personal belongings. Pt will be taken to car that is driven by her spouse in w/ MORENO Barnes. No new MD scripts. VS WNL. RA 93%.
--- NOTE | 2020-04-14 13:39 | PC.NURSE ---
Day shift: Pt left unit with all personal belongings at approx 1340. Takne to car via WC as was written in previous note.
--- NOTE | 2020-04-14 13:47 | CM.IDA ---
Initial DCP Assessment Note Pt is a 74 yo female, resident of [place], patient presents w/dizziness and blurred vision, Dr Spencer has discharged home today, no acute findings, close outpatient f/u recommended. PCP: Darrel Mena Payer: [employer]IC[employer]/TUTUP Reviewed chart, pt discussed in multidisciplinary rounds this morning. Therapy has cleared pt for return home w/family to assist and pt has planned for home. Met w/patient this morning to introduce role, patient states she is confident about return home since her dtr Harriett lives downstairs and is available to assist. No needs expected from DC planning team although will remain available in case this changes today. LACHO Vazquez Discharge Planning/Care Management CM Discharge Assessment Start: 04/14/20 12:39 Freq: Status: Discharge Protocol: Document 04/14/20 12:39 ELMO (Rec: 04/14/20 13:47 ELMO [id number]) Discharge Planning Assessment Assigned Aml Analyst LACHO Enriquez DPOA/Assigned Designee Name Angeli Bueno, spouse Contact Information [phone] Advance Directives? No Advance Directives on File No History Provided By Patient,Medical Record Prior Living Arrangements House Household Members spouse,children Comment Dtr Harriett lives downstairs Type of transportation used prior to Relies on Others admit Willing to Return to Facility? No Independent with ADL's Yes Is patient alert and oriented? Yes Barriers to Discharge No Discharge Plan Home Transportation Arrangement Family Referrals Initiated None needed Additional Comment At this time
--- NOTE | 2020-04-29 16:08 | PC.NURSE ---
NS started @ 1049 @ 150 cc/ hour continued @ 150 cc / hour upon transfer to floor.
== END 2020-04-14 13:39 | disposition home or self-care (01) ==
LOC: ED 13:08 → AC 13:16
PROVIDERS: Admitting Provider Internal Medicine; Emergency Provider Emergency Medicine; PCP Internal Medicine; Referring Provider Emergency Medicine; Visit Provider Internal Medicine
DX: R42 Dizziness and giddiness (principal); H53.2 Diplopia; I10 Essential (primary) hypertension; E78.5 Hyperlipidemia, unspecified; K21.9 Gastro-esophageal reflux disease without esophagitis; J45.909 Unspecified asthma, uncomplicated; I25.10 Atherosclerotic heart disease of native coronary artery without angina pectoris; I73.9 Peripheral vascular disease, unspecified; Z20.822 Contact with and (suspected) exposure to COVID-19
CPT/HCPCS: 36415; 70450; 70496; 70498; 70551; 71045; 80048; 80053; 81003; 81015; 83036; 83735; 83880; 84443; 84484; 85025; 85610; 85651; 86140; 87086; 87635; 93005; 96361; 96374; 97116; 97162; 97165; 99284; 99285; C9803; G0378; Q9967

== ENCOUNTER → 2020-05-25 18:47 | Outpatient (ROUT) | payer MEDICARE, SELFPAY ==
[2020-04-13 13:29] VITALS: BMI 22.8
[2020-05-25 19:16] LABS: BUN Creatinine Ratio 17.9 (6-22); Blood Urea Nitrogen 24 mg/dL (7-17); Calcium 9.7 mg/dL (8.4-10.2); Carbon Dioxide 29 mmol/L (22-32); Chloride 99 mmol/L (98-107); Estimated Glomerular Filt Rate 38.8 mL/min (>60); Glucose 100 mg/dL (80-110); HEMOLYSIS < 15 (0-50); Potassium 4.1 mmol/L (3.4-5.1); Sodium 135 mmol/L (137-145)
== END ==
PROVIDERS: PCP Internal Medicine; Visit Provider Internal Medicine
DX: I10 Essential (primary) hypertension (principal)
CPT/HCPCS: 80048; 87086

== ENCOUNTER 2020-10-28 10:15 | Emergency (ER) | payer MEDICARE, SELFPAY ==
[2020-04-13 13:29] VITALS: BMI 22.8
[2020-10-28] VITALS (12 sets, daily range): BP systolic 115–139; BP diastolic 59–90; PULSE 104–119; RESP 16–28; TEMP 36.8; O2SAT 91–96; BMI 21.4
[2020-10-28 11:14] LABS: COVID19 -Nasal RAPID Negative (Negative)
--- NOTE | 2020-10-28 11:17 | DI.RAD.S_ITS ---
PROCEDURE: XR CHEST 1V INDICATIONS: shortness of breath TECHNIQUE: One view of the chest was acquired. COMPARISON: [facility], CR, XR CHEST 1V, 04/13/2020, 9:17. FINDINGS: Surgical changes and devices: None. Lungs and pleura: Lungs are clear. No pleural effusions or pneumothorax. Mediastinum: Mediastinal contours appear normal. Heart size is mildly enlarged. Bones and chest wall: No suspicious bony lesions. Overlying soft tissues appear unremarkable. IMPRESSION: No acute pulmonary process. Dictated by: Olinda Anthony M.D. on 10/28/2020 at 12:05 Approved by: Olinda Anthony M.D. on 10/28/2020 at 12:07
[2020-10-28] MEDS: ALBUTEROL 2.5 MG/3 ML NEB (ADULT) INH (11:26)
[2020-10-28] MEDS: ALBUTEROL/IPRATROPIUM 3 ML AMPUL INH (11:26)
[2020-10-28 11:50] LABS: Add Manual Diff / Slide Review NO; Basophils Absolute Auto 0 /uL (0-100); Basophils Percent Auto 0.7 % (0-2); Eosinophils Absolute Auto 200 /uL (0-450); Hematocrit 39.5 % (36-46); Hemoglobin 12.8 g/dL (12.0-16.0); Lymphocytes Absolute Auto 1100 /uL (1100-4500); Lymphocytes Percent Auto 16.5 % (25-40); Mean Corpuscular HGB Conc 32.5 % (30-36); Mean Corpuscular Hemoglobin 28.3 PG (26-34); Monocytes Absolute Auto 1100 /uL (0-900); Monocytes Percent Auto 16.8 % (3-14); Neutrophils Absolute Auto 4100 /uL (1500-7000); Platelet Count 375 X10^3/uL (150-400); Red Blood Cell Count 4.54 X10^6/uL (4.0-5.2); Red Cell Distribution Width 12.7 % (11.6-14.8); White Blood Cell Count 6.5 X10^3/uL (4.5-11.0)
[2020-10-28 11:53] LABS: INR 1.1 (0.9-1.3); Prothrombin Time 11.7 SECONDS (10.1-12.7)
[2020-10-28 11:57] LABS: Alanine Aminotransferase 22 IU/L (<35); Albumin 4.3 g/dL (3.5-5.0); Albumin Globulin Ratio 1.1 (1.0-2.8); Alkaline Phosphatase 85 U/L (38-126); Aspartate Aminotransferase 37 IU/L (14-36); Bilirubin Total 0.6 mg/dL (0.2-1.3); Blood Urea Nitrogen 24 mg/dL (7-17); Calcium 9.9 mg/dL (8.4-10.2); Carbon Dioxide 28 mmol/L (22-32); Chloride 100 mmol/L (98-107); Estimated Glomerular Filt Rate 54.3 mL/min (>60); Globulin 3.8 g/dL (1.7-4.1); Glucose 99 mg/dL (80-110); HEMOLYSIS 23 (0-50); Lactate (Lactic Acid) 0.8 mmol/L (0.7-2.1); Potassium 3.9 mmol/L (3.4-5.1); Sodium 135 mmol/L (137-145); Total Protein 8.1 g/dL (6.3-8.2)
[2020-10-28 12:05] LABS: NT-proBNP (BNP-Adult 18+) 434 pg/mL (<125)
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
[2020-10-28] MEDS: ALBUTEROL 2.5 MG/3 ML NEB (ADULT) 5 MG INH (12:34)
[2020-10-28] MEDS: methylPREDNISolone 125 MG/2 ML VIAL IV (12:45)
[2020-10-28 12:57] LABS: Creatine Kinase 32 U/L (30-135); D Dimer 343 ng/mL (<230)
[2020-10-28 13:10] LABS: Troponin I < 0.012 ng/mL (0.01-0.034)
--- NOTE | 2020-10-28 13:28 | DI.CT.S_ITS ---
PROCEDURE: CT ANGIO CHEST PE PROTOCOL INDICATIONS: persistent tachycardia, sob, recent drive. asthms flare TECHNIQUE: After the administration of intravenous contrast, 2 mm thick sections acquired from the pulmonary apices to the posterior costophrenic angles. [id number] intensity projection (MIP) coronal and sagittal reformats were then acquired through the thorax. For radiation dose reduction, the following was used: automated exposure control, adjustment of mA and/or kV according to patient size. COMPARISON: None. FINDINGS: Image quality: Evaluation of the distal pulmonary vasculature is limited by bolus timing. Pulmonary arteries: Pulmonary arteries are normal in size, and demonstrate no central intraluminal filling defects to suggest central pulmonary embolism. Lungs and pleura: Lungs are clear. No pleural effusions or pneumothorax. Central and peripheral airways are patent. Left upper lobe calcified granuloma noted. Mediastinum: Heart size is normal, without pericardial effusion. No mediastinal or hilar adenopathy. Thoracic aorta is normal in caliber and enhancement. Esophagus is normal in caliber, without hiatal hernia. Dense coronary artery vascular calcification present. Atherosclerotic vascular calcification noted in the aortic arch. Atherosclerotic calcification in the abdominal aorta noted without evidence of aneurysm. Bones and chest wall: No suspicious bony lesions. Ribs and thoracic spine appear intact throughout. Thyroid gland unremarkable. No axillary or supraclavicular adenopathy. Abdomen: Visualized upper abdominal solid organs appear normal in the early arterial phase of enhancement. IMPRESSION: No evidence of pulmonary embolism, aortic dissection or aneurysm dense coronary artery and aortic vascular calcification present. Approved by: Jose Elias Pandya M.D. on 10/28/2020 at 13:09
== END 2020-10-28 14:41 | disposition home or self-care (01) ==
PROVIDERS: Emergency Provider Emergency Medicine; PCP Internal Medicine
DX: J45.901 Unspecified asthma with (acute) exacerbation (principal); R00.0 Tachycardia, unspecified; Z20.822 Contact with and (suspected) exposure to COVID-19
CPT/HCPCS: 36415; 71045; 71275; 80053; 82550; 83605; 83880; 84484; 85025; 85379; 85610; 87635; 93005; 94150; 94640; 96374; 99285; C9803; J2930; J7613; Q9967

== ENCOUNTER → 2020-12-23 10:43 | Outpatient (CLI) | payer MEDICARE, SELFPAY ==
[2020-04-13 13:29] VITALS: BMI 22.8
--- NOTE | 2020-12-23 | DI.RAD.S_ITS ---
PROCEDURE: XR DEXA AXIAL SKELETON INDICATIONS: Age-related osteoporosis without current pathologi COMPARISON: None. FINDINGS: This blank DEXA report has been sent in error by the PACS system. The correct and complete report will be forthcoming in 1-2 days. Thank you for your patience and understanding. Dictated by: Mayi Brooks MD, PhD on 12/24/2020 at 8:08 Approved by: Mayi Brooks MD, PhD on 12/24/2020 at 8:08
== END ==
PROVIDERS: PCP Internal Medicine; Referring Provider Family Medicine; Visit Provider Family Medicine
DX: M85.851 Other specified disorders of bone density and structure, right thigh (principal); Z78.0 Asymptomatic menopausal state; Z87.891 Personal history of nicotine dependence
CPT/HCPCS: 77080

== ENCOUNTER 2021-07-05 14:13 | Emergency (ER) | payer MEDICARE, SELFPAY ==
[2020-04-13 13:29] VITALS: BMI 22.8
[2021-07-05] VITALS (9 sets, daily range): BP systolic 139–182; BP diastolic 77–88; PULSE 96–114; RESP 24–26; TEMP 36.6–36.9; O2SAT 93–96; BMI 23.8
--- NOTE | 2021-07-05 14:24 | DI.RAD.S_ITS ---
PROCEDURE: XR CHEST 1V INDICATIONS: shortness of breath TECHNIQUE: One view of the chest was acquired. COMPARISON: [facility], CR, XR CHEST 1V, 10/28/2020, 11:45. FINDINGS: Surgical changes and devices: None. Lungs and pleura: Lungs are clear. No pleural effusions or pneumothorax. Mediastinum: Aortic arch calcifications are seen.. Heart size is normal. Bones and chest wall: No suspicious bony lesions. Overlying soft tissues appear unremarkable. IMPRESSION: No acute cardiopulmonary pathology. Dictated by: Brad Porter M.D. on 07/05/2021 at 15:07 Approved by: Brad Porter M.D. on 07/05/2021 at 15:12
[2021-07-05 14:48] LABS: COVID19 -Nasal RAPID Negative (Negative)
[2021-07-05] MEDS: ALBUTEROL/IPRATROPIUM 3 ML AMPUL INH (15:06)
[2021-07-05] MEDS: methylPREDNISolone 125 MG/2 ML VIAL IV (15:11)
[2021-07-05 15:12] LABS: Add Manual Diff / Slide Review NO; Basophils Absolute Auto 0 /uL (0-100); Basophils Percent Auto 0.5 % (0-2); Eosinophils Absolute Auto 0 /uL (0-450); Eosinophils Percent Auto 0.1 % (2-4); Hematocrit 39.8 % (36-46); Hemoglobin 13.2 g/dL (12.0-16.0); Lymphocytes Absolute Auto 1700 /uL (1100-4500); Lymphocytes Percent Auto 18.6 % (25-40); Mean Corpuscular HGB Conc 33.3 % (30-36); Mean Corpuscular Hemoglobin 28.4 PG (26-34); Mean Corpuscular Volume 85.1 fL (80-100); Monocytes Absolute Auto 800 /uL (0-900); Neutrophils Absolute Auto 6400 /uL (1500-7000); Neutrophils Percent Auto 71.8 % (50-75); Platelet Count 449 X10^3/uL (150-400); Red Blood Cell Count 4.67 X10^6/uL (4.0-5.2); Red Cell Distribution Width 14.1 % (11.6-14.8); White Blood Cell Count 8.9 X10^3/uL (4.5-11.0)
[2021-07-05 15:23] LABS: Alanine Aminotransferase 26 IU/L (<35); Albumin 4.4 g/dL (3.5-5.0); Albumin Globulin Ratio 1.3 (1.0-2.8); Alkaline Phosphatase 97 U/L (38-126); Aspartate Aminotransferase 37 IU/L (14-36); Bilirubin Total 0.5 mg/dL (0.2-1.3); Blood Urea Nitrogen 20 mg/dL (7-17); Carbon Dioxide 27 mmol/L (22-32); Chloride 105 mmol/L (98-107); Estimated Glomerular Filt Rate > 60 mL/min (>60); Globulin 3.5 g/dL (1.7-4.1); Glucose 106 mg/dL (80-110); HEMOLYSIS < 15 (0-50); Lactate (Lactic Acid) 1.4 mmol/L (0.7-2.1); Potassium 4.2 mmol/L (3.4-5.1); Sodium 139 mmol/L (137-145); Total Protein 7.9 g/dL (6.3-8.2)
--- NOTE | 2021-07-05 15:34 | ED.SOB ---
HPI - SOB/Dyspnea General Chief Complaint: Shortness of Breath/Dyspnea Stated Complaint: asthma - worse for last week Time Seen by Provider: 07/05/21 14:56 Source: patient Mode of arrival: Ambulatory Limitations: no limitations History of Present Illness HPI Narrative: The patient has been ill with cough for about 1 week. She is a former smoker. She quit about 8 years ago. She occasionally uses albuterol, not daily. She was on a recent trip out of town. She developed cough upon return, she had fever. She presents here with cough and shortness of breath. The fever has resolved. She denies headache, sore throat, chest pain, and chronic respiratory problems. The cough is occasionally productive. She has no abdominal pain, no nausea vomiting. She has no GI symptoms or symptoms. She has no rashes. She denies orthopnea, she denies peripheral edema. She has no peripheral numbness or weakness. She talks in full sentences, there is no suggestive confusion. She is a good historian. Related Data Home Medications Medication Instructions Recorded Confirmed ALBUTEROL SULFATE (Ventolin / 2 puff INH Q4H PRN #0 06/11/10 04/13/20 Proventil) aspirin 81 mg tablet,delayed 81 mg PO QDAY #1 04/20/11 04/13/20 release pravastatin 40 mg tablet 40 mg PO HS #0 tab 12/15/15 04/13/20 (Pravachol) prednisone 10 mg tablet 10 mg PO [facility] PRN #0 12/15/15 04/13/20 albuterol sulfate 90 mcg/actuation 2 puff INHALATION Q6H PRN 11/25/17 04/13/20 aerosol inhaler (Proventil HFA) amlodipine 10 mg tablet 10 mg PO DAILY 11/25/17 04/13/20 cholecalciferol (vitamin D3) 25 1,000 unit PO DAILY 11/25/17 04/13/20 mcg (1,000 unit) capsule losartan 25 mg tablet 25 mg PO DAILY 11/25/17 04/13/20 prednisone 50 mg tablet 50 mg PO [facility] PRN 04/13/20 04/13/20 Previous Rx's Medication Instructions Recorded albuterol sulfate 90 mcg/actuation 2 inh INHALATION Q4H PRN #1 ea 10/28/20 breath activated powder inhaler prednisone 20 mg tablet 40 mg PO DAILY #10 tab 10/28/20 albuterol sulfate 90 mcg/actuation 2 inh INHALATION Q4-6H PRN #8.5 g 07/05/21 aerosol inhaler amoxicillin 875 mg-potassium 1 tab PO Q12H #14 tab 07/05/21 clavulanate 125 mg tablet prednisone 20 mg tablet 40 mg PO BID 5 Days #20 tab 07/05/21 prednisone 20 mg tablet 40 mg PO DAILY 5 Days tab 07/05/21 Allergies Allergy/AdvReac Type Severity Reaction Status Date / Time adhesive Allergy Unknown Verified 10/28/20 10:48 moxifloxacin Allergy Unknown Verified 10/28/20 10:48 atorvastatin [ATORVASTATIN] AdvReac Intermediate MUSCLE Verified 10/28/20 10:48 WEAKNESS lisinopril [LISINOPRIL] AdvReac Intermediate COUGH Verified 10/28/20 10:48 Review of Systems Review of Systems Narrative: See HPI. Patient History Medical History COPD (chronic obstructive pulmonary disease) Degenerative joint disease of left hip HLD (hyperlipidemia) Hypertension PVD (peripheral vascular disease) with claudication Surgical History Status post delivery Social History household members: spouse and children Smoking Status: Former smoker Smoking Status: Former smoker alcohol intake frequency: a few times a week Substance Use Type: does not use Exam Initial Vital Signs Initial Vital Signs: Vital Signs Temperature 97.9 F 07/05/21 14:17 Pulse Rate 113 H 07/05/21 14:17 Respiratory Rate 26 H 07/05/21 14:17 Blood Pressure 182/88 H 07/05/21 14:17 Pulse Oximetry 96 07/05/21 14:17 Const General: cooperative, comfortable and well groomed [place] Head: normocephalic and atraumatic Face and sinus: normal facial exam and sinuses nontender Mouth: oral mucosae normal Teeth and gingiva: dentition normal Eyes General: appearance normal, both eyes and all related structures Pupils: PERRL EOM: EOM intact bilaterally Neck Neck: No lymphadenopathy and No JVD Chest Chest: normal inspection of the chest Resp Other: Diffuse coarse rales or rhonchi throughout both lung aaron. Cardio Rate: regular rate Rhythm: regular rhythm Heart Sounds: S1 normal, S2 normal, no click, no murmurs and no rubs GI Inspection: normal to inspection Palpation: soft, No mass and No tender Auscultation: normal bowel sounds Back/Spine/Pelvis Back: normal to inspection and No back tenderness Skin General: no rashes or lesions noted Neuro General: patient alert, patient awake, patient oriented x3 and no focal motor deficits Extrem General: normal to inspection, full ROM, no pedal edema and no calf tenderness Psych Mental Status: mental status grossly normal Course Course Course Narrative: The patient has received DuoNeb, steroids, and Rocephin. Prior to discharge her lungs are clear to auscultation, she is feeling much better. She is discharged home on Augmentin, albuterol 5 days of prednisone. She is advised to follow-up with her doctor in the next 2 weeks. Orders Ordered: ED Orders 07/05/21 14:22 COVID19 -Nasal RAPID/Pre-Proc Stat 07/05/21 14:24 XR chest 1V Stat EKG-12 Lead Stat Measure peak expiratory flow ONCE RT Consult Eval and Treat Now 07/05/21 15:02 Complete Blood Count AUTO DIFF Stat Comprehensive Metabolic Panel Stat Lactate (Lactic Acid) Stat Discontinued Medications Albuterol/Ipratropium (Albuterol/Ipratropium 3 Ml Ampul) 3 ml INH NOW ONE Stop: 07/05/21 15:04 Last Admin: 07/05/21 15:06 Dose: 3 ml Documented by: SAPNA Ceftriaxone Sodium 1,000 mg/ (Sodium Chloride) 100 mls @ 200 mls/hr IV NOW ONE Stop: 07/05/21 15:55 Last Infusion: 07/05/21 16:47 Dose: 0 mls/hr Documented by: Admin: 07/05/21 16:15 Dose: 200 mls/hr Documented by: MARCIA Methylprednisolone (Methylprednisolone 125 Mg/2 Ml Vial) 125 mg IV NOW ONE Stop: 07/05/21 15:04 Last Admin: 07/05/21 15:11 Dose: 125 mg Documented by: MARCIA Vital Signs Vital signs: Vital Signs - 8 hr 07/05/21 14:17 07/05/21 14:44 07/05/21 14:45 Temperature 97.9 F 98.4 F Pulse Rate 113 H 99 H 100 H Respiratory Rate 26 H 24 Blood Pressure 182/88 H 152/80 H Pulse Oximetry 96 96 96 07/05/21 15:00 07/05/21 15:30 07/05/21 15:50 Temperature Pulse Rate 98 H 114 H 100 H Respiratory Rate Blood Pressure 177/79 H Pulse Oximetry 96 94 93 07/05/21 16:00 07/05/21 16:20 07/05/21 16:30 Temperature Pulse Rate 96 H 100 H 96 H Respiratory Rate Blood Pressure 143/82 H 139/77 Pulse Oximetry 93 93 93 MDM - SOB/Dyspnea Lab Data Result diagrams: 07/05/21 15:02 07/05/21 15:02 Labs: Lab Results 07/05/21 07/05/21 07/05/21 Range/Units 14:22 15:02 15:02 WBC 8.9 (4.5-11.0) X10^3/uL RBC 4.67 (4.0-5.2) X10^6/uL Hgb 13.2 (12.0-16.0) g/dL Hct 39.8 (36-46) % MCV 85.1 (80-100) fL MCH 28.4 (26-34) PG MCHC 33.3 (30-36) % RDW 14.1 (11.6-14.8) % Plt Count 449 H (150-400) X10^3/uL Neut % (Auto) 71.8 (50-75) % Lymph % (Auto) 18.6 L (25-40) % [place] % (Auto) 9.0 (3-14) % Eos % (Auto) 0.1 L (2-4) % Baso % (Auto) 0.5 (0-2) % Neut # (Auto) 6400 (2546-9065) /uL Lymph # (Auto) 1700 (0012-4672) /uL [place] # (Auto) 800 (0-900) /uL Eos # (Auto) 0 (0-450) /uL Baso # (Auto) 0 (0-100) /uL Sodium 139 (137-145) mmol/L Potassium 4.2 (3.4-5.1) mmol/L Chloride 105 (98-107) mmol/L Carbon Dioxide 27 (22-32) mmol/L BUN 20 H (7-17) mg/dL Creatinine 0.87 (0.52-1.04) mg/dL Estimated GFR > 60 (>60) mL/min BUN/Creatinine Ratio 23.0 H (6-22) Glucose 106 (80-110) mg/dL Lactate (0.7-2.1) mmol/L Calcium 9.0 (8.4-10.2) mg/dL Total Bilirubin 0.5 (0.2-1.3) mg/dL AST 37 H (14-36) IU/L ALT 26 (<35) IU/L Alkaline Phosphatase 97 (38-126) U/L Total Protein 7.9 (6.3-8.2) g/dL Albumin 4.4 (3.5-5.0) g/dL Globulin 3.5 (1.7-4.1) g/dL Albumin/Globulin Ratio 1.3 (1.0-2.8) SARS-CoV-2 (PCR) Negative (Negative) 07/05/21 Range/Units 15:02 WBC (4.5-11.0) X10^3/uL RBC (4.0-5.2) X10^6/uL Hgb (12.0-16.0) g/dL Hct (36-46) % MCV (80-100) fL MCH (26-34) PG MCHC (30-36) % RDW (11.6-14.8) % Plt Count (150-400) X10^3/uL Neut % (Auto) (50-75) % Lymph % (Auto) (25-40) % [place] % (Auto) (3-14) % Eos % (Auto) (2-4) % Baso % (Auto) (0-2) % Neut # (Auto) (1530-5453) /uL Lymph # (Auto) (5177-4553) /uL [place] # (Auto) (0-900) /uL Eos # (Auto) (0-450) /uL Baso # (Auto) (0-100) /uL Sodium (137-145) mmol/L Potassium (3.4-5.1) mmol/L Chloride (98-107) mmol/L Carbon Dioxide (22-32) mmol/L BUN (7-17) mg/dL Creatinine (0.52-1.04) mg/dL Estimated GFR (>60) mL/min BUN/Creatinine Ratio (6-22) Glucose (80-110) mg/dL Lactate 1.4 (0.7-2.1) mmol/L Calcium (8.4-10.2) mg/dL Total Bilirubin (0.2-1.3) mg/dL AST (14-36) IU/L ALT (<35) IU/L Alkaline Phosphatase (38-126) U/L Total Protein (6.3-8.2) g/dL Albumin (3.5-5.0) g/dL Globulin (1.7-4.1) g/dL Albumin/Globulin Ratio (1.0-2.8) SARS-CoV-2 (PCR) (Negative) Imaging Data Chest x-ray: Radiologist's Impression: No acute cardiopulmonary findings. ECG Data Attestation: I personally reviewed and interpreted this ECG as follows: (Sinus tachycardia rate 109 beats per minute. Motion artifact. Normal intervals. No obvious acute ST changes. No ectopy.) Discharge Plan Departure Patient Disposition: Home Clinical Impression: COPD exacerbation Instructions: Chronic Obstructive Pulmonary Disease Activity Restrictions/Additional Instructions: Prednisone 40 mg daily for 5 days. Albuterol 2 puffs every 3-4 hours as needed for cough or wheezing. Augmentin 1 tablet 2 times daily for 7 days. Recheck with your doctor in about 2 weeks, return here if symptoms become worse. Prescriptions: New albuterol sulfate 90 mcg/actuation HFA aerosol inhaler 2 inh inhalation Q4-6H PRN (Reason: shortness of breath or wheezing) Qty: 8.5 1RF amoxicillin-pot clavulanate 875-125 mg tablet 1 tab PO Q12H Qty: 14 0RF prednisone 20 mg tablet 40 mg PO DAILY 5 Days 0RF prednisone 20 mg tablet 40 mg PO BID 5 Days Qty: 20 0RF No Action ALBUTEROL SULFATE (Ventolin / Proventil) 2 puff INH Q4H PRN Qty: 0 0RF aspirin 81 MG tablet,delayed release (DR/EC) 81 mg PO QDAY Qty: 1 0RF pravastatin [Pravachol] 40 MG tablet 40 mg PO HS Qty: 0 0RF prednisone 10 MG tablet 10 mg PO [facility] PRN (Reason: breathing) Qty: 0 0RF prednisone 50 MG tablet 50 mg PO [facility] PRN (Reason: breathing) 0RF prednisone 20 mg tablet 40 mg PO DAILY Qty: 10 0RF albuterol sulfate 90 mcg/actuation aerosol powdr breath activated 2 inh inhalation Q4H PRN (Reason: shortness of breath or wheezing) Qty: 1 0RF cholecalciferol (vitamin D3) 1,000 unit capsule 1,000 unit PO DAILY 0RF amlodipine 10 mg tablet 10 mg PO DAILY 0RF losartan 25 mg tablet 25 mg PO DAILY 0RF albuterol sulfate [Proventil HFA] 90 mcg/actuation HFA aerosol inhaler 2 puff INHALATION Q6H PRN (Reason: Dyspnea) 0RF Referrals: Darrel Mena MD [Primary Care Provider] -
[2021-07-05] MEDS: cefTRIAXone 1,000 MG in SODIUM CHLORIDE 0.9% 100 ML 200 ML IV (16:15)
== END 2021-07-05 18:15 | disposition home or self-care (01) ==
PROVIDERS: Emergency Provider Emergency Medicine; PCP Internal Medicine
DX: J44.1 Chronic obstructive pulmonary disease with (acute) exacerbation (principal); R00.0 Tachycardia, unspecified; Z20.822 Contact with and (suspected) exposure to COVID-19; Z87.891 Personal history of nicotine dependence
CPT/HCPCS: 36415; 71045; 80053; 83605; 85025; 87635; 93005; 96365; 96375; 99284; C9803; J0696; J2930

== ENCOUNTER 2021-07-13 11:19 | Emergency (ER) | payer MEDICARE, SELFPAY ==
[2020-04-13 13:29] VITALS: BMI 22.8
[2021-07-13] VITALS (12 sets, daily range): BP systolic 143–220; BP diastolic 76–107; PULSE 77–116; RESP 17–28; TEMP 36.6; O2SAT 93–96; BMI 22.1
--- NOTE | 2021-07-13 11:27 | DI.RAD.S_ITS ---
PROCEDURE: XR CHEST 2V INDICATIONS: shortness of breath TECHNIQUE: 2 views of the chest were acquired. COMPARISON: [facility], CR, XR CHEST 1V, 07/05/2021, 14:44. FINDINGS: Surgical changes and devices: None. Lungs and pleura: Lungs are clear. Small calcified granuloma in left apex is again seen and unchanged. No pleural effusions or pneumothorax. Mediastinum: Tortuous thoracic aorta is seen with aortic arch calcifications. Heart size is normal. Bones and chest wall: No suspicious bony abnormalities. Soft tissues appear unremarkable. IMPRESSION: No acute cardiopulmonary pathology. Dictated by: Brad Porter M.D. on 07/13/2021 at 12:24 Approved by: Brad Porter M.D. on 07/13/2021 at 12:25
[2021-07-13 11:58] LABS: Add Manual Diff / Slide Review NO; Basophils Absolute Auto 0 /uL (0-100); Basophils Percent Auto 0.3 % (0-2); Eosinophils Absolute Auto 200 /uL (0-450); Eosinophils Percent Auto 1.9 % (2-4); Hemoglobin 14.7 g/dL (12.0-16.0); Lymphocytes Absolute Auto 1300 /uL (1100-4500); Lymphocytes Percent Auto 11.1 % (25-40); Mean Corpuscular HGB Conc 32.6 % (30-36); Mean Corpuscular Hemoglobin 28.2 PG (26-34); Mean Corpuscular Volume 86.5 fL (80-100); Monocytes Absolute Auto 900 /uL (0-900); Monocytes Percent Auto 7.8 % (3-14); Neutrophils Absolute Auto 9600 /uL (1500-7000); Neutrophils Percent Auto 78.9 % (50-75); Platelet Count 283 X10^3/uL (150-400); Red Cell Distribution Width 14.5 % (11.6-14.8); White Blood Cell Count 12.2 X10^3/uL (4.5-11.0)
--- NOTE | 2021-07-13 12:54 | ED.GENADULT ---
HPI - General Adult General Chief complaint: Shortness of Breath/Dyspnea Stated complaint: Trouble breathing Time Seen by Provider: 07/13/21 12:31 Source: patient Mode of arrival: Ambulatory History of Present Illness HPI narrative: Patient is a 76-year-old female. Does have a history of COPD. States that she has not had problems in years. Was seen here in the emergency department approximately 1 week ago. Was diagnosed with a COPD exacerbation. Was treated here in the emergency department subsequently sent home with antibiotics and steroids. She finished the course of this. Since that time she has developed diarrhea. She also has developed what she thinks is either urinary tract in infection arm a yeast infection. She also has having a sore throat. She does not have any medication for her nebulizer at home. No fevers. Having some chest discomfort with coughing. Related Data Home Medications Medication Instructions Recorded Confirmed ALBUTEROL SULFATE (Ventolin / 2 puff INH Q4H PRN #0 06/11/10 04/13/20 Proventil) aspirin 81 mg tablet,delayed 81 mg PO QDAY #1 04/20/11 04/13/20 release pravastatin 40 mg tablet 40 mg PO HS #0 tab 12/15/15 04/13/20 (Pravachol) prednisone 10 mg tablet 10 mg PO [facility] PRN #0 12/15/15 04/13/20 albuterol sulfate 90 mcg/actuation 2 puff INHALATION Q6H PRN 11/25/17 04/13/20 aerosol inhaler (Proventil HFA) amlodipine 10 mg tablet 10 mg PO DAILY 11/25/17 04/13/20 cholecalciferol (vitamin D3) 25 1,000 unit PO DAILY 11/25/17 04/13/20 mcg (1,000 unit) capsule losartan 25 mg tablet 25 mg PO DAILY 11/25/17 04/13/20 prednisone 50 mg tablet 50 mg PO [facility] PRN 04/13/20 04/13/20 Previous Rx's Medication Instructions Recorded albuterol sulfate 90 mcg/actuation 2 inh INHALATION Q4H PRN #1 ea 10/28/20 breath activated powder inhaler prednisone 20 mg tablet 40 mg PO DAILY #10 tab 10/28/20 albuterol sulfate 90 mcg/actuation 2 inh INHALATION Q4-6H PRN #8.5 g 07/05/21 aerosol inhaler amoxicillin 875 mg-potassium 1 tab PO Q12H #14 tab 07/05/21 clavulanate 125 mg tablet albuterol sulfate 2.5 mg/0.5 mL 5 mg INHALATION Q6H PRN #30 ea 07/13/21 solution for nebulization fluconazole 100 mg tablet 100 mg PO DAILY #2 tab 07/13/21 (Diflucan) prednisone 20 mg tablet 20 mg PO DAILY #30 tab 07/13/21 Allergies Allergy/AdvReac Type Severity Reaction Status Date / Time adhesive Allergy Unknown Verified 07/13/21 11:24 moxifloxacin Allergy Unknown Verified 07/13/21 11:24 atorvastatin [ATORVASTATIN] AdvReac Intermediate MUSCLE Verified 07/13/21 11:24 WEAKNESS lisinopril [LISINOPRIL] AdvReac Intermediate COUGH Verified 07/13/21 11:24 Review of Systems Constitutional Constitutional: Reports system reviewed and no additional complaints, except as documented ENT Ears, Nose, Mouth, and Throat: Reports system reviewed and no additional complaints, except as documented Cardiovascular Cardiovascular: Reports as per HPI and Reports system reviewed and no additional complaints, except as documented Respiratory Respiratory: Reports as per HPI and Reports system reviewed and no additional complaints, except as documented Gastrointestinal Gastrointestinal: Reports as per HPI and Reports system reviewed and no additional complaints, except as documented Genitourinary Genitourinary: Reports system reviewed and no additional complaints, except as documented Integumentary/Breasts Skin/Breast: Reports system reviewed and no additional complaints, except as documented Neurologic Neurologic: Reports system reviewed and no additional complaints, except as documented Hematologic/Lymphatic On Anticoagulants: No Patient History Medical History COPD (chronic obstructive pulmonary disease) Degenerative joint disease of left hip HLD (hyperlipidemia) Hypertension PVD (peripheral vascular disease) with claudication Surgical History Status post delivery Social History household members: spouse and children Smoking Status: Former smoker Smoking Status: Former smoker alcohol intake frequency: a few times a week Substance Use Type: does not use Exam Initial Vital Signs Initial Vital Signs: Vital Signs Temperature 97.9 F 07/13/21 11:25 Pulse Rate 114 H 07/13/21 11:25 Respiratory Rate 17 04/28/22 11:25 Blood Pressure 220/107 H 07/13/21 11:25 Pulse Oximetry 96 07/13/21 11:25 HENMT Head: normal to inspection and normocephalic Resp Effort & Inspection: not labored and not tachypneic Auscultation: crackles, rhonchi and wheezes Cardio Rate: tachycardic Rhythm: regular rhythm GI Inspection: normal to inspection Skin General: no rashes or lesions noted Neuro General: patient alert, patient awake, patient oriented x3 and moves all extremities Speech: speech normal Extrem General: normal to inspection and capillary refill normal Psych Appearance: grossly normal and well kempt Course Orders Ordered: ED Orders 07/13/21 11:27 XR chest 2V Stat EKG-12 Lead Stat Measure peak expiratory flow ONCE RT Consult Eval and Treat Now 07/13/21 11:54 Complete Blood Count AUTO DIFF Stat 07/13/21 13:20 COVID19 -Nasal RAPID/Pre-Proc Stat 07/13/21 14:03 Urine Culture Stat Urine Microscopic Stat 07/13/21 14:45 Comprehensive Metabolic Panel Stat Lactate (Lactic Acid) Stat NT-proBNP (BNP-Adult 18+) Stat Discontinued Medications Albuterol/Ipratropium (Albuterol/Ipratropium 3 Ml Ampul) 3 ml INH NOW ONE Stop: 07/13/21 13:00 Last Admin: 07/13/21 14:08 Dose: 3 ml Documented by: GONZALEZ Methylprednisolone (Methylprednisolone 125 Mg/2 Ml Vial) 125 mg IV NOW ONE Stop: 07/13/21 13:00 Last Admin: 07/13/21 13:36 Dose: 125 mg Documented by: MIL Vital Signs Vital signs: Vital Signs - 8 hr 07/13/21 11:25 07/13/21 12:37 07/13/21 12:38 Temperature 97.9 F Pulse Rate 114 H 99 H 104 H Respiratory Rate 17 22 21 Blood Pressure 220/107 H 143/76 H Pulse Oximetry 96 96 96 07/13/21 13:00 07/13/21 13:01 07/13/21 13:31 Temperature Pulse Rate 100 H 102 H 116 H Respiratory Rate 21 21 Blood Pressure 163/79 H Pulse Oximetry 95 95 94 07/13/21 13:38 07/13/21 14:00 07/13/21 14:08 Temperature Pulse Rate 100 H 98 H 92 H Respiratory Rate 27 H 22 18 Blood Pressure 165/93 H 150/86 H Pulse Oximetry 93 96 96 07/13/21 14:36 07/13/21 15:00 Temperature Pulse Rate 105 H 101 H Respiratory Rate 28 H 24 Blood Pressure Pulse Oximetry 95 94 Medical Decision Making Lab Data Lab results reviewed: Yes I reviewed the patient's lab results. Result diagrams: 07/13/21 11:54 07/13/21 14:45 Labs: Lab Results 07/13/21 07/13/21 07/13/21 Range/Units 11:54 13:20 14:03 WBC 12.2 H (4.5-11.0) X10^3/uL RBC 5.20 (4.0-5.2) X10^6/uL Hgb 14.7 (12.0-16.0) g/dL Hct 45.0 (36-46) % MCV 86.5 (80-100) fL MCH 28.2 (26-34) PG MCHC 32.6 (30-36) % RDW 14.5 (11.6-14.8) % Plt Count 283 (150-400) X10^3/uL Neut % (Auto) 78.9 H (50-75) % Lymph % (Auto) 11.1 L (25-40) % [place] % (Auto) 7.8 (3-14) % Eos % (Auto) 1.9 L (2-4) % Baso % (Auto) 0.3 (0-2) % Neut # (Auto) 9600 H (0428-8281) /uL Lymph # (Auto) 1300 (3037-6527) /uL [place] # (Auto) 900 (0-900) /uL Eos # (Auto) 200 (0-450) /uL Baso # (Auto) 0 (0-100) /uL Sodium (137-145) mmol/L Potassium (3.4-5.1) mmol/L Chloride (98-107) mmol/L Carbon Dioxide (22-32) mmol/L BUN (7-17) mg/dL Creatinine (0.52-1.04) mg/dL Estimated GFR (>60) mL/min BUN/Creatinine Ratio (6-22) Glucose (80-110) mg/dL Lactate (0.7-2.1) mmol/L Calcium (8.4-10.2) mg/dL Total Bilirubin (0.2-1.3) mg/dL AST (14-36) IU/L ALT (<35) IU/L Alkaline Phosphatase (38-126) U/L NT-Pro-B Natriuret Pep (<125) pg/mL Total Protein (6.3-8.2) g/dL Albumin (3.5-5.0) g/dL Globulin (1.7-4.1) g/dL Albumin/Globulin Ratio (1.0-2.8) Urine RBC 1-5/hpf (0-5/HPF) Urine WBC 5-10/hpf H (0-5/HPF) Ur Squamous Epith Cells 1-5 /hpf (0-5/HPF) Urine Bacteria Few (2-10) H (None) Ur Culture Indicated? Specimen cultured SARS-CoV-2 (PCR) Negative (Negative) 07/13/21 07/13/21 Range/Units 14:45 14:45 WBC (4.5-11.0) X10^3/uL RBC (4.0-5.2) X10^6/uL Hgb (12.0-16.0) g/dL Hct (36-46) % MCV (80-100) fL MCH (26-34) PG MCHC (30-36) % RDW (11.6-14.8) % Plt Count (150-400) X10^3/uL Neut % (Auto) (50-75) % Lymph % (Auto) (25-40) % [place] % (Auto) (3-14) % Eos % (Auto) (2-4) % Baso % (Auto) (0-2) % Neut # (Auto) (8074-7139) /uL Lymph # (Auto) (1759-7258) /uL [place] # (Auto) (0-900) /uL Eos # (Auto) (0-450) /uL Baso # (Auto) (0-100) /uL Sodium 136 L (137-145) mmol/L Potassium 3.6 (3.4-5.1) mmol/L Chloride 100 (98-107) mmol/L Carbon Dioxide 30 (22-32) mmol/L BUN 9 (7-17) mg/dL Creatinine 0.74 (0.52-1.04) mg/dL Estimated GFR > 60 (>60) mL/min BUN/Creatinine Ratio 12.2 (6-22) Glucose 114 H (80-110) mg/dL Lactate 1.0 (0.7-2.1) mmol/L Calcium 9.0 (8.4-10.2) mg/dL Total Bilirubin 0.8 (0.2-1.3) mg/dL AST 30 (14-36) IU/L ALT 23 (<35) IU/L Alkaline Phosphatase 110 (38-126) U/L NT-Pro-B Natriuret Pep 490 H (<125) pg/mL Total Protein 7.3 (6.3-8.2) g/dL Albumin 4.0 (3.5-5.0) g/dL Globulin 3.3 (1.7-4.1) g/dL Albumin/Globulin Ratio 1.2 (1.0-2.8) Urine RBC (0-5/HPF) Urine WBC (0-5/HPF) Ur Squamous Epith Cells (0-5/HPF) Urine Bacteria (None) Ur Culture Indicated? SARS-CoV-2 (PCR) (Negative) Urine Dip Bedside Urine Glucose Negative Bedside Urine Bilirubin - Negative Bedside Urine Ketone - Negative Urine Specific [place] 1.015 Bedside Urine Occult Blood +/- Bedside Urine pH 6.0 Bedside Urine Protein - Negative Bedside Urine Urobilinogen 0.2 Bedside Urine Nitrite - Negative Bedside Urine Leukocytes ++ 125 Esterase Point of care testing: Urine Dip Bedside Urine Glucose Negative Bedside Urine Bilirubin - Negative Bedside Urine Ketone - Negative Urine Specific [place] 1.015 Bedside Urine Occult Blood +/- Bedside Urine pH 6.0 Bedside Urine Protein - Negative Bedside Urine Urobilinogen 0.2 Bedside Urine Nitrite - Negative Bedside Urine Leukocytes ++ 125 Esterase Imaging Data Chest x-ray: Radiologist's Impression: [address] [address] XRay Report Signed Patient: Debi Bueno MR#: [id number] : 1945 Acct:[id number] Age/Sex: 76 / F Date of Service: 07/13/21 Loc: ED Accession Number: [id number] ?? Procedure: XR chest 2V Ordering Provider: Konstantin Younger D.O. PROCEDURE:? XR CHEST 2V ? INDICATIONS:? shortness of breath ? TECHNIQUE:? 2 views of the chest were acquired.? ? COMPARISON:? [facility], CR, XR CHEST 1V, 07/05/2021, 14:44. ? FINDINGS:? ? Surgical changes and devices:? None.? ? Lungs and pleura:? Lungs are clear.? Small calcified granuloma in left apex is again seen and unchanged.? No pleural effusions or pneumothorax.? ? Mediastinum:? Tortuous thoracic aorta is seen with aortic arch calcifications.? Heart size is normal. ? Bones and chest wall:? No suspicious bony abnormalities.? Soft tissues appear unremarkable.? ? IMPRESSION:? No acute cardiopulmonary pathology.? ? ? Dictated by: Brad Porter M.D. on 07/13/2021 at 12:24 ? ? Approved by: Brad Porter M.D. on 07/13/2021 at 12:25? ECG Data Attestation: I personally reviewed and interpreted this ECG as follows: Prior ECG tracings: available for review Interpretation: Sinus rhythm Ventricular rate 89 Normal axis Normal QRS Normal QTC No ST T wave changes MDM Narrative Medical decision making narrative: Patient is nontoxic appearing. Chest x-ray is unremarkable. EKG is unremarkable. She feels much better after the nebulizer treatment. Labs are unremarkable. No indication for antibiotics. She does have a history of COPD. Plan will be is to give her a longer course of prednisone. She has been on prednisone of in the past and is very comfortable taking this medication in tapering the medication. I will also refill her albuterol for her nebulizer. She feels like she is having a yeast infection. Unsure if this is from the prednisone or from the antibiotics or both. She states that it is somewhat improving. I will give her prescription for Diflucan that she can take if her symptoms do not improve. She was given return precautions. She expressed understanding and agreement. Discharge Plan Departure Patient Disposition: Home Clinical Impression: COPD (chronic obstructive pulmonary disease) Instructions: Chronic Obstructive Pulmonary Disease Activity Restrictions/Additional Instructions: I do recommend that you take the steroids like we discussed. I recommend that you take 2 tablets (40 mg) a day for 5 days. Then take 1 tablet (20 mg) a day for 5 days. Then take 1/2 tablet (10 mg) a day for 5 days. Take the Diflucan as needed like we discussed. Contact your primary doctor for follow-up. Return to the emergency department for any new or worsening symptoms. Prescriptions: New prednisone 20 mg tablet 20 mg PO DAILY Qty: 30 0RF albuterol sulfate 2.5 mg/0.5 mL solution for nebulization 5 mg inhalation Q6H PRN (Reason: shortness of breath or wheezing) Qty: 30 0RF fluconazole [Diflucan] 100 mg tablet 100 mg PO DAILY Qty: 2 0RF No Action ALBUTEROL SULFATE (Ventolin / Proventil) 2 puff INH Q4H PRN Qty: 0 0RF aspirin 81 MG tablet,delayed release (DR/EC) 81 mg PO QDAY Qty: 1 0RF pravastatin [Pravachol] 40 MG tablet 40 mg PO HS Qty: 0 0RF prednisone 10 MG tablet 10 mg PO [facility] PRN (Reason: breathing) Qty: 0 0RF prednisone 50 MG tablet 50 mg PO [facility] PRN (Reason: breathing) 0RF prednisone 20 mg tablet 40 mg PO DAILY Qty: 10 0RF albuterol sulfate 90 mcg/actuation aerosol powdr breath activated 2 inh inhalation Q4H PRN (Reason: shortness of breath or wheezing) Qty: 1 0RF albuterol sulfate 90 mcg/actuation HFA aerosol inhaler 2 inh inhalation Q4-6H PRN (Reason: shortness of breath or wheezing) Qty: 8.5 1RF amoxicillin-pot clavulanate 875-125 mg tablet 1 tab PO Q12H Qty: 14 0RF cholecalciferol (vitamin D3) 1,000 unit capsule 1,000 unit PO DAILY 0RF amlodipine 10 mg tablet 10 mg PO DAILY 0RF losartan 25 mg tablet 25 mg PO DAILY 0RF albuterol sulfate [Proventil HFA] 90 mcg/actuation HFA aerosol inhaler 2 puff INHALATION Q6H PRN (Reason: Dyspnea) 0RF Referrals: Darrel Mena MD [Primary Care Provider] -
[2021-07-13] MEDS: methylPREDNISolone 125 MG/2 ML VIAL IV (13:36)
[2021-07-13 14:00] LABS: COVID19 -Nasal RAPID Negative (Negative)
[2021-07-13] MEDS: ALBUTEROL/IPRATROPIUM 3 ML AMPUL INH (14:08)
[2021-07-13 14:55] LABS: Bacteria Urine Few (2-10); Culture Indicated Urine Specimen Cultured; RBC Urine 1-5/HPF (0-5/HPF); Squamous Epithelial Cell Urine 1-5 /HPF (0-5/HPF); WBC Urine 5-10/HPF (0-5/HPF)
[2021-07-13 15:08] LABS: Alanine Aminotransferase 23 IU/L (<35); Albumin Globulin Ratio 1.2 (1.0-2.8); Alkaline Phosphatase 110 U/L (38-126); Aspartate Aminotransferase 30 IU/L (14-36); BUN Creatinine Ratio 12.2 (6-22); Bilirubin Total 0.8 mg/dL (0.2-1.3); Blood Urea Nitrogen 9 mg/dL (7-17); Carbon Dioxide 30 mmol/L (22-32); Chloride 100 mmol/L (98-107); Estimated Glomerular Filt Rate > 60 mL/min (>60); Globulin 3.3 g/dL (1.7-4.1); Glucose 114 mg/dL (80-110); HEMOLYSIS < 15 (0-50); Potassium 3.6 mmol/L (3.4-5.1); Sodium 136 mmol/L (137-145); Total Protein 7.3 g/dL (6.3-8.2)
[2021-07-13 15:17] LABS: NT-proBNP (BNP-Adult 18+) 490 pg/mL (<125)
== END 2021-07-13 15:56 | disposition home or self-care (01) ==
PROVIDERS: Emergency Provider Emergency Medicine; PCP Internal Medicine
DX: J44.9 Chronic obstructive pulmonary disease, unspecified (principal); R19.7 Diarrhea, unspecified; I10 Essential (primary) hypertension; Z87.891 Personal history of nicotine dependence; Z20.822 Contact with and (suspected) exposure to COVID-19
CPT/HCPCS: 36415; 71046; 80053; 81003; 81015; 83605; 83880; 85025; 87086; 87635; 93005; 94640; 96374; 99284; C9803; J2930

== ENCOUNTER → 2021-12-01 15:19 | Outpatient (CLI) | payer MEDICARE, SELFPAY ==
[2020-04-13 13:29] VITALS: BMI 22.8
[2021-12-01 16:50] LABS: Hematocrit 42.3 % (36-46); Hemoglobin 14.2 g/dL (12.0-16.0); Mean Corpuscular HGB Conc 33.5 % (30-36); Mean Corpuscular Hemoglobin 28.7 PG (26-34); Mean Corpuscular Volume 85.6 fL (80-100); Platelet Count 398 X10^3/uL (150-400); Red Blood Cell Count 4.94 X10^6/uL (4.0-5.2); Red Cell Distribution Width 13.5 % (11.6-14.8)
[2021-12-01 17:19] LABS: Alanine Aminotransferase 30 IU/L (<35); Albumin 4.2 g/dL (3.5-5.0); Albumin Globulin Ratio 1.1 (1.0-2.8); Alkaline Phosphatase 101 U/L (38-126); Aspartate Aminotransferase 49 IU/L (14-36); BUN Creatinine Ratio 11.6 (6-22); Bilirubin Total 0.6 mg/dL (0.2-1.3); Blood Urea Nitrogen 8 mg/dL (7-17); Calcium 9.4 mg/dL (8.4-10.2); Carbon Dioxide 29 mmol/L (22-32); Chloride 97 mmol/L (98-107); Cholesterol 240 mg/dL (140-199); Estimated Glomerular Filt Rate > 60 mL/min (>60); Globulin 3.9 g/dL (1.7-4.1); Glucose 96 mg/dL (80-110); HDL Cholesterol 105 mg/dL (40-60); HEMOLYSIS < 15 (0-50); LDL Cholesterol Calculated 103 mg/dL (<100); Potassium 3.5 mmol/L (3.4-5.1); Sodium 137 mmol/L (137-145); Total Protein 8.1 g/dL (6.3-8.2); Triglycerides 162 mg/dL (35-150)
[2021-12-01 17:49] LABS: TSH w/ Reflex to FT4 1.97 uIU/mL (0.47-4.68)
== END ==
PROVIDERS: PCP Internal Medicine; Referring Provider Internal Medicine; Visit Provider Internal Medicine
DX: E78.2 Mixed hyperlipidemia (principal); I10 Essential (primary) hypertension; I25.10 Atherosclerotic heart disease of native coronary artery without angina pectoris; I73.9 Peripheral vascular disease, unspecified
CPT/HCPCS: 36415; 80053; 80061; 84443; 85027

== ENCOUNTER 2021-12-22 13:30 | Emergency (ER) | payer MEDICARE, SELFPAY ==
[2020-04-13 13:29] VITALS: BMI 22.8
[2021-12-22 13:41] VITALS: BP 185/104; PULSE 113; RESP 24; O2SAT 94; BMI 22.8
--- NOTE | 2021-12-22 13:45 | DI.RAD.S_ITS ---
PROCEDURE: XR CHEST 2V INDICATIONS: short of breath TECHNIQUE: 2 views of the chest were acquired. COMPARISON: [facility], CT, CT ANGIO CHEST PE PROTOCOL, 10/28/2020, 13:31. [facility], CR, XR CHEST 1 VIEW, 11/05/2018, 13:55. [facility], CR, XR CHEST 2V, 07/13/2021, 11:21. [facility], CR, XR CHEST 1V, 07/05/2021, 14:44. FINDINGS: Surgical changes and devices: None. Lungs and pleura: Lungs are clear except for a previously present angular radiodensity superimposed on the right upper lobe laterally, superimposed on a posterior rib and the undersurface of the mid right clavicle. This was present on a prior plain film from 2019.. No pleural effusions or pneumothorax. Mediastinum: Mediastinal contours are normal. Heart size is normal. Bones and chest wall: No suspicious bony abnormalities. Soft tissues appear unremarkable. IMPRESSION: Source of shortness of breath is not seen. Dictated by: Marshall Baker M.D. on 12/22/2021 at 14:28 Approved by: Marshall Baker M.D. on 12/22/2021 at 14:31
[2021-12-22 14:07] LABS: COVID19 -Nasal RAPID Negative (Negative)
--- NOTE | 2021-12-22 15:20 | ED.GENADULT ---
HPI - General Adult General Chief complaint: Shortness of Breath/Dyspnea Stated complaint: Trouble breathing- COVID+ home test Time Seen by Provider: 12/22/21 15:16 Source: patient Mode of arrival: Ambulatory History of Present Illness HPI narrative: 76-year-old female. Has a history of asthma. Has an albuterol inhaler at home and a nebulizer but she is not used a nebulizer in some time. She states that [place] She was in an area where there was quite a bit of smoke. She started have some shortness of breath since then. She has been using her albuterol inhaler without much improvement. States she took a COVID test at home and it was not obviously positive but she thought that maybe it was positive. She denies any chest pain. She has prednisone at home that she takes when she has issues with breathing and she did take some prednisone over the past couple days. Related Data Home Medications Medication Instructions Recorded Confirmed aspirin 81 mg tablet,delayed 81 mg PO QDAY ##1 04/20/11 12/01/21 release Previous Rx's Medication Instructions Recorded albuterol sulfate 2.5 mg/0.5 mL 5 mg inhalation Q6H PRN shortness 07/13/21 solution for nebulization of breath or wheezing #30 ea albuterol sulfate 90 mcg/actuation 2 inh inhalation Q4-6H PRN 12/01/21 aerosol inhaler shortness of breath or wheezing #8.5 grams amlodipine 5 mg tablet 5 mg PO DAILY #90 tabs 12/01/21 ezetimibe 10 mg tablet 10 mg PO DAILY #90 tabs 12/01/21 losartan 100 mg tablet 100 mg PO DAILY #90 tabs 12/01/21 omeprazole 20 mg capsule,delayed 20 mg PO DAILY #90 caps 12/01/21 release potassium chloride 10 mEq 10 meq PO DAILY #90 tabs 12/01/21 tablet,extended release prednisone 20 mg tablet 20 mg PO DAILY #30 tabs 12/01/21 rosuvastatin 40 mg tablet 40 mg PO DAILY #90 tabs 12/01/21 albuterol sulfate 2.5 mg/3 mL 2.5 mg (3 mL) inhalation Q4-6H PRN 12/22/21 (0.083 %) solution for nebulization shortness of breath or wheezing #75 mL Allergies Allergy/AdvReac Type Severity Reaction Status Date / Time adhesive Allergy Unknown Verified 12/01/21 12:56 moxifloxacin Allergy Unknown Verified 12/01/21 12:56 atorvastatin [ATORVASTATIN] AdvReac Intermediate MUSCLE Verified 12/01/21 12:56 WEAKNESS lisinopril [LISINOPRIL] AdvReac Intermediate COUGH Verified 12/01/21 12:56 Review of Systems Review of Systems ROS Unobtainable: All systems reviewed & are unremarkable except as noted in HPI and below Patient History Medical History Advanced directives, counseling/discussion COPD (chronic obstructive pulmonary disease) Coronary artery disease Essential hypertension GERD without esophagitis HLD (hyperlipidemia) Medicare annual wellness visit, initial Mixed hyperlipidemia Osteopenia PVD (peripheral vascular disease) with claudication Surgical History Status post delivery Social History household members: spouse and children Smoking Status: Former smoker Smoking Status: Former smoker alcohol intake frequency: a few times a week Substance Use Type: does not use Exam Initial Vital Signs Initial Vital Signs: Vital Signs Pulse Rate 113 H 12/22/21 13:41 Respiratory Rate 24 12/22/21 13:41 Blood Pressure 185/104 H 12/22/21 13:41 Pulse Oximetry 94 12/22/21 13:41 Oxygen Delivery Method 12/22/21 13:41 HENMT Head: normal to inspection and normocephalic Resp Effort & Inspection: not labored, no respiratory distress and tachypneic Auscultation: diminished lung sounds and wheezes Cardio Rate: regular rate Skin General: no rashes or lesions noted Extrem General: normal to inspection and No edema Psych Appearance: grossly normal Course Orders Ordered: ED Orders 12/22/21 13:43 COVID19 -Nasal RAPID/Pre-Proc Stat 12/22/21 13:45 XR chest 2V Stat Discontinued Medications Albuterol/Ipratropium (Albuterol/Ipratropium 3 Ml Ampul) 3 ml INH NOW ONE Stop: 12/22/21 15:21 Last Admin: 12/22/21 15:30 Dose: 3 ml Documented By: JOSE Albuterol/Ipratropium (Albuterol/Ipratropium 3 Ml Ampul) 6 ml INH NOW ONE Stop: 12/22/21 15:44 Last Admin: 12/22/21 15:47 Dose: 6 ml Documented By: JOSE Vital Signs Vital signs: Vital Signs - 8 hr 12/22/21 13:41 12/22/21 15:30 12/22/21 15:48 Pulse Rate 113 H 94 H 96 H Respiratory Rate 24 22 20 Blood Pressure 185/104 H Pulse Oximetry 94 93 Oxygen Delivery Method Room Air Room Air 12/22/21 16:37 12/22/21 16:47 Pulse Rate 122 H Respiratory Rate Blood Pressure 175/85 H Pulse Oximetry 95 Oxygen Delivery Method Medical Decision Making Lab Data Labs: Lab Results 12/22/21 Range/Units 13:43 SARS-CoV-2 (PCR) Negative (Negative) Imaging Data Chest x-ray: Radiologist's Impression: [address] [address] XRay Report Signed Patient: Debi Bueno MR#: [id number] : 1945 Acct:[id number] Age/Sex: 76 / F Date of Service: 12/22/21 Loc: ED Accession Number: [id number] ?? Procedure: XR chest 2V Ordering Provider: Konstantin Younger D.O. PROCEDURE:? XR CHEST 2V ? INDICATIONS:? short of breath ? TECHNIQUE:? 2 views of the chest were acquired.? ? COMPARISON:? [facility], CT, CT ANGIO CHEST PE PROTOCOL, 10/28/2020, 13:31.? [facility], CR, XR CHEST 1 VIEW, 11/05/2018, 13:55.? [facility], CR, XR CHEST 2V, 07/13/2021, 11:21.? [facility], CR, XR CHEST 1V, 07/05/2021, 14:44. ? FINDINGS:? ? Surgical changes and devices:? None.? ? Lungs and pleura:? Lungs are clear except for a previously present angular radiodensity superimposed on the right upper lobe laterally, superimposed on a posterior rib and the undersurface of the mid right clavicle.? This was present on a prior plain film from 2019..? No pleural effusions or pneumothorax.? ? Mediastinum:? Mediastinal contours are normal.? Heart size is normal.? ? Bones and chest wall:? No suspicious bony abnormalities.? Soft tissues appear unremarkable.? ? IMPRESSION:? Source of shortness of breath is not seen. ? ? Dictated by: Marshall Baker M.D. on 12/22/2021 at 14:28 ? ? Approved by: Marshall Baker M.D. on 12/22/2021 at 14:31?? MDM Narrative Medical decision making narrative: Patient's COVID test was negative. Chest x-rays unremarkable. Patient did have diffuse wheezing with diminished breath sounds which improved after nebulizers. She is currently on steroids. She feels much better after the nebulizer treatments. No indication for antibiotics. Will refill her home nebulizer albuterol. She was given return precautions. She expressed understanding and agreement. Discharge Plan Departure Patient Disposition: Home Clinical Impression: Asthma with exacerbation Instructions: DI for Asthma -- Adult Activity Restrictions/Additional Instructions: I do recommend that you continue your prednisone and also your albuterol at home. A prescription for some albuterol for her nebulizer was sent to [facility]. Please start using it as directed. Contact your primary doctor for follow-up. Return to the emergency department for any new or worsening symptoms. Prescriptions: New albuterol sulfate 2.5 mg /3 mL (0.083 %) solution for nebulization 2.5 mg inhalation Q4-6H PRN (Reason: shortness of breath or wheezing) Qty: 75 0RF No Action aspirin 81 MG tablet,delayed release (DR/EC) 81 mg PO QDAY Qty: 1 amlodipine 5 mg tablet 5 mg PO DAILY Qty: 90 3RF ezetimibe 10 mg tablet 10 mg PO DAILY Qty: 90 3RF losartan 100 mg tablet 100 mg PO DAILY Qty: 90 3RF omeprazole 20 mg capsule,delayed release(DR/EC) 20 mg PO DAILY Qty: 90 3RF potassium chloride 10 mEq tablet extended release 10 meq PO DAILY Qty: 90 3RF rosuvastatin 40 mg tablet 40 mg PO DAILY Qty: 90 3RF prednisone 20 mg tablet 20 mg PO DAILY Qty: 30 3RF albuterol sulfate 90 mcg/actuation HFA aerosol inhaler 2 inh inhalation Q4-6H PRN (Reason: shortness of breath or wheezing) Qty: 8.5 1RF albuterol sulfate 2.5 mg/0.5 mL solution for nebulization 5 mg inhalation Q6H PRN (Reason: shortness of breath or wheezing) Qty: 30 0RF Referrals: Darrel Mena MD [Primary Care Provider] - Visit Report Forms: Patient Portal/API
[2021-12-22 15:30] VITALS: PULSE 94; RESP 22
[2021-12-22] MEDS: ALBUTEROL/IPRATROPIUM 3 ML AMPUL INH (15:30)
[2021-12-22] MEDS: ALBUTEROL/IPRATROPIUM 3 ML AMPUL 6 ML INH (15:47)
[2021-12-22 15:48] VITALS: PULSE 96; RESP 20; O2SAT 93
[2021-12-22 16:37] VITALS: PULSE 122; O2SAT 95
[2021-12-22 16:47] VITALS: BP 175/85
== END 2021-12-22 16:49 | disposition home or self-care (01) ==
PROVIDERS: Emergency Provider Emergency Medicine; PCP Internal Medicine
DX: J45.901 Unspecified asthma with (acute) exacerbation (principal); Z20.822 Contact with and (suspected) exposure to COVID-19
CPT/HCPCS: 71046; 87635; 94150; 94640; 99283; C9803

== ENCOUNTER 2022-10-25 12:17 | Emergency (ER) | payer MEDICARE, SELFPAY ==
[2020-04-13 13:29] VITALS: BMI 22.8
[2022-10-25] VITALS (15 sets, daily range): BP systolic 137–201; BP diastolic 74–107; PULSE 78–121; RESP 23–30; TEMP 36.7–37.2; O2SAT 88–94
[2022-10-25] MEDS: ALBUTEROL/IPRATROPIUM 3 ML AMPUL 6 ML INH (12:29)
--- NOTE | 2022-10-25 12:34 | DI.RAD.S_ITS ---
PROCEDURE: XR CHEST 1V INDICATIONS: Shortness of breath TECHNIQUE: One view of the chest was acquired. COMPARISON: [facility], CR, XR CHEST 2V, 12/22/2021, 14:10. [facility], CR, XR CHEST 2V, 07/13/2021, 11:21. FINDINGS: Surgical changes and devices: None. Lungs and pleura: Lungs are clear. No pleural effusions or pneumothorax. Calcified granuloma in the left lung apex. Mediastinum: Mediastinal contours appear normal. Heart size is normal. Bones and chest wall: No suspicious bony lesions. Overlying soft tissues appear unremarkable. IMPRESSION: No acute cardiopulmonary process. Dictated by: Justin Ceja M.D. on 10/25/2022 at 12:41 Approved by: Justin Ceja M.D. on 10/25/2022 at 12:45
[2022-10-25 12:44] LABS: Add Manual Diff / Slide Review NO; Basophils Absolute Auto 0 /uL (0-100); Basophils Percent Auto 0.6 % (0-2); Eosinophils Absolute Auto 300 /uL (0-450); Eosinophils Percent Auto 3.3 % (2-4); Hematocrit 42.1 % (36-46); Lymphocytes Absolute Auto 2300 /uL (1100-4500); Lymphocytes Percent Auto 26.1 % (25-40); Mean Corpuscular HGB Conc 33.2 % (30-36); Mean Corpuscular Volume 87.2 fL (80-100); Monocytes Absolute Auto 900 /uL (0-900); Monocytes Percent Auto 10.3 % (3-14); Neutrophils Absolute Auto 5200 /uL (1500-7000); Neutrophils Percent Auto 59.7 % (50-75); Platelet Count 392 X10^3/uL (150-400); Red Blood Cell Count 4.82 X10^6/uL (4.0-5.2); Red Cell Distribution Width 13.8 % (11.6-14.8); White Blood Cell Count 8.7 X10^3/uL (4.5-11.0)
[2022-10-25 12:55] LABS: Prothrombin Time 10.9 SECONDS (10.1-12.7)
--- NOTE | 2022-10-25 12:57 | ED_ITS ---
HPI - SOB/Dyspnea General Chief Complaint: Shortness of Breath/Dyspnea Stated Complaint: SOB Time Seen by Provider: 10/25/22 12:38 Source: patient Mode of arrival: Ambulatory Limitations: no limitations History of Present Illness HPI Narrative: 72-year-old female with history of asthma and/or COPD with remote history of tobacco use, known hypertension, dyslipidemia who presents with complaint shortness of breath. Patient states she typically has breathing issues throughout the summer months. She is typically without any issues in the winter time. She states this most recent flare started around September 27 she had a colonoscopy and hemorrhoidectomy at that time she would to call an ambulance for the 1st time to go to [facility]. She states she had a round of steroids at that time. She states since then her breathing has been sort of intermittently worse and better. She did have some chest pain bilaterally a week ago which has resolved. She states she is scheduled for a stress test this upcoming . She states no chest pain since then but had worsening shortness of breath today. She takes prednisone 20 mg some days but not all days. She was recently started on Flovent and uses it regularly and uses albuterol inhaler or nebs as needed. She was prescribed montelukast but has not started it she read that there were a lot of side effects. She is on multiple medications for blood pressure including amlodipine, carvedilol, losartan, she takes Zetia, rosuvastatin as well as magnesium and potassium replacement and no longer takes trospium for her bladder. She does not have not have any known cardiac issues but has been encouraged to have further cardiac evaluation. She did follow with her primary care recently Dr. Jc had been prescribed a new medications. Patient states she felt a little bit more short of breath yesterday but much worse today. She denies fevers or chills, she is had some mild nasal drainage. Denies any nausea or vomiting. No diarrhea constipation no new swelling of extremities. She received DuoNeb and albuterol here in the department and had improvement in her breathing. Related Data Home Medications Medication Instructions Recorded Confirmed aspirin 81 mg tablet,delayed 81 mg PO QDAY ##1 04/20/11 12/01/21 release Previous Rx's Medication Instructions Recorded albuterol sulfate 2.5 mg/0.5 mL 5 mg inhalation Q6H PRN shortness 07/13/21 solution for nebulization of breath or wheezing #30 ea amlodipine 5 mg tablet 5 mg PO DAILY #90 tabs 12/01/21 ezetimibe 10 mg tablet 10 mg PO DAILY #90 tabs 12/01/21 losartan 100 mg tablet 100 mg PO DAILY #90 tabs 12/01/21 omeprazole 20 mg capsule,delayed 20 mg PO DAILY #90 caps 12/01/21 release potassium chloride 10 mEq 10 meq PO DAILY #90 tabs 12/01/21 tablet,extended release rosuvastatin 40 mg tablet 40 mg PO DAILY #90 tabs 12/01/21 albuterol sulfate 2.5 mg/3 mL 2.5 mg (3 mL) inhalation Q4-6H PRN 12/22/21 (0.083 %) solution for nebulization shortness of breath or wheezing #75 mL albuterol sulfate 90 mcg/actuation 2 inh inhalation Q4-6H PRN 02/20/22 aerosol inhaler shortness of breath or wheezing #8.5 grams prednisone 20 mg tablet 20 mg PO DAILY #30 tabs 03/09/22 prednisone 10 mg tablets in a dose See Rx Instructions .Route 10/25/22 pack .COMPLEX #21 ea Allergies Allergy/AdvReac Type Severity Reaction Status Date / Time adhesive Allergy Unknown Verified 10/25/22 12:33 moxifloxacin Allergy Unknown Verified 10/25/22 12:33 atorvastatin [ATORVASTATIN] AdvReac Intermediate MUSCLE Verified 10/25/22 12:33 WEAKNESS lisinopril [LISINOPRIL] AdvReac Intermediate COUGH Verified 10/25/22 12:33 Review of Systems Review of Systems ROS Unobtainable: All systems reviewed & are unremarkable except as noted in HPI and below Patient History Medical History Advanced directives, counseling/discussion COPD (chronic obstructive pulmonary disease) Coronary artery disease Essential hypertension GERD without esophagitis HLD (hyperlipidemia) Medicare annual wellness visit, initial Mixed hyperlipidemia Osteopenia PVD (peripheral vascular disease) with claudication Surgical History Status post delivery Social History household members: spouse and children Smoking Status: Former smoker Smoking Status: Former smoker alcohol intake frequency: a few times a week Substance Use Type: does not use Exam Narrative Exam Narrative: GENERAL: Alert and oriented x three, elderly female in [id number] distress. HEENT: Head normocephalic, atraumatic, EOMI, pupils reactive, face symmetric, moist mucous membranes NECK: Supple, full range of motion CARDIOVASCULAR: Regular rate and rhythm without murmurs, rubs or gallops. No JVD. No swelling bilateral lower extremities. RESPIRATORY: Breath sounds decreased bilaterally, mild wheezes at the bases, no rales or rhonchi. No tachypnea or accessory muscle use. Patient had just received DuoNeb and states she feels much better. Speaking in full sentences. ABDOMEN: Soft, nontender. Normoactive bowel sounds all 4 quadrants. No guarding or rebound, rigidity, no mass : No CVA tenderness EXTREMITIES: Normal range of motion, no clubbing or edema. Neurovascularly intact NEUROLOGICAL: Cranial nerves II through XII grossly intact. Moving all extr emities SKIN: Warm, dry, no petechiae, no rashes or lesions. Initial Vital Signs Initial Vital Signs: Vital Signs Temperature 98.9 F 10/25/22 12:28 Pulse Rate 121 H 10/25/22 12:28 Respiratory Rate 30 H 10/25/22 12:28 Blood Pressure 196/96 H 10/25/22 12:28 Pulse Oximetry 92 10/25/22 12:28 Oxygen Delivery Method Room Air 10/25/22 12:28 Course Orders Ordered: ED Orders 10/25/22 12:15 Respiratory Panel (Film Array) Stat 10/25/22 12:25 Complete Blood Count AUTO DIFF Stat Comprehensive Metabolic Panel Stat D Dimer Stat Lactate (Lactic Acid) Stat NT-proBNP (BNP-Adult 18+) Stat Prothrombin Time INR Stat Troponin I Stat 10/25/22 12:34 XR chest 1V Stat EKG-12 Lead Stat Measure peak expiratory flow ONCE RT Consult Eval and Treat NOW 10/25/22 14:33 Trop I [Troponin I] Stat Discontinued Medications Albuterol/Ipratropium (Albuterol/Ipratropium 3 Ml Ampul) 6 ml INH NOW ONE Stop: 10/25/22 12:29 Last Admin: 10/25/22 12:29 Dose: 6 ml Documented By: ORI Amlodipine Besylate (Amlodipine 5 Mg Tablet) 10 mg PO NOW ONE Stop: 10/25/22 12:54 Last Admin: 10/25/22 13:24 Dose: 10 mg Documented By: JE Carvedilol (Carvedilol 3.125 Mg Tablet) 3.125 mg PO NOW ONE Stop: 10/25/22 12:54 Last Admin: 10/25/22 13:23 Dose: 3.125 mg Documented By: JE Ezetimibe (Ezetimibe 10 Mg Tablet) 10 mg PO NOW ONE Stop: 10/25/22 12:54 Last Admin: 10/25/22 13:22 Dose: 10 mg Documented By: JE Furosemide (Furosemide 40 Mg/4 Ml Vial) 40 mg IV NOW ONE Stop: 10/25/22 14:09 Last Admin: 10/25/22 14:37 Dose: 40 mg Documented By: MANDY Losartan Potassium (Losartan 50 Mg Tablet) 100 mg PO NOW ONE Stop: 10/25/22 12:54 Last Admin: 10/25/22 13:23 Dose: 100 mg Documented By: JE Methylprednisolone (Methylprednisolone 125 Mg/2 Ml Vial) 125 mg IV NOW ONE Stop: 10/25/22 12:54 Last Admin: 10/25/22 13:21 Dose: 125 mg Documented By: JE Vital Signs Vital signs: Vital Signs - 8 hr 10/25/22 12:28 10/25/22 12:29 10/25/22 12:30 Temperature 98.9 F Pulse Rate 121 H 108 H 108 H Respiratory Rate 30 H 26 H 28 H Blood Pressure 196/96 H 196/96 H Pulse Oximetry 92 90 L 91 Oxygen Delivery Method Room Air Room Air Oxygen Flow Rate 0 Fraction of Inspired Oxygen 21 10/25/22 13:23 10/25/22 13:23 10/25/22 12:41 Temperature Pulse Rate 88 89 109 H Respiratory Rate 25 H Blood Pressure 168/95 H 168/95 H Pulse Oximetry 90 L Oxygen Delivery Method Oxygen Flow Rate Fraction of Inspired Oxygen 10/25/22 12:45 10/25/22 12:45 10/25/22 13:00 Temperature Pulse Rate 107 H Respiratory Rate 28 H Blood Pressure 201/107 H 168/93 H Pulse Oximetry 91 Oxygen Delivery Method Oxygen Flow Rate Fraction of Inspired Oxygen 10/25/22 13:00 10/25/22 13:15 10/25/22 13:15 Temperature Pulse Rate 101 H 100 H Respiratory Rate 26 H 26 H Blood Pressure 168/95 H Pulse Oximetry 89 L 88 L Oxygen Delivery Method Oxygen Flow Rate Fraction of Inspired Oxygen 10/25/22 13:30 10/25/22 13:45 10/25/22 14:00 Temperature Pulse Rate 96 H 88 99 H Respiratory Rate 27 H 24 26 H Blood Pressure 181/105 H 179/98 H 195/97 H Pulse Oximetry 94 94 93 Oxygen Delivery Method Nasal Cannula Nasal Cannula Room Air Oxygen Flow Rate 2 2 Fraction of Inspired Oxygen 10/25/22 14:15 10/25/22 14:15 10/25/22 14:40 Temperature Pulse Rate 92 H 78 Respiratory Rate 23 Blood Pressure 177/88 H Pulse Oximetry 90 L 91 Oxygen Delivery Method Room Air Oxygen Flow Rate Fraction of Inspired Oxygen 10/25/22 16:25 10/25/22 16:26 Temperature 98.0 F Pulse Rate 113 H 93 H Respiratory Rate 26 H 24 Blood Pressure 137/74 Pulse Oximetry 91 90 L Oxygen Delivery Method Room Air Oxygen Flow Rate Fraction of Inspired Oxygen MDM - SOB/Dyspnea Lab Data 10/25/22 12:25 10/25/22 12:25 Labs: Lab Results 10/25/22 10/25/22 10/25/22 Range/Units 12:15 12:25 12:25 WBC 8.7 (4.5-11.0) X10^3/uL RBC 4.82 (4.0-5.2) X10^6/uL Hgb 14.0 (12.0-16.0) g/dL Hct 42.1 (36-46) % MCV 87.2 (80-100) fL MCH 29.0 (26-34) PG MCHC 33.2 (30-36) % RDW 13.8 (11.6-14.8) % Plt Count 392 (150-400) X10^3/uL Neut % (Auto) 59.7 (50-75) % Lymph % (Auto) 26.1 (25-40) % [place] % (Auto) 10.3 (3-14) % Eos % (Auto) 3.3 (2-4) % Baso % (Auto) 0.6 (0-2) % Neut # (Auto) 5200 (6080-5015) /uL Lymph # (Auto) 2300 (6132-2089) /uL [place] # (Auto) 900 (0-900) /uL Eos # (Auto) 300 (0-450) /uL Baso # (Auto) 0 (0-100) /uL PT 10.9 (10.1-12.7) SECONDS INR 1.0 (0.9-1.3) D-Dimer (<500) ng/ml Sodium (137-145) mmol/L Potassium (3.4-5.1) mmol/L Chloride (98-107) mmol/L Carbon Dioxide (22-32) mmol/L BUN (7-17) mg/dL Creatinine (0.52-1.04) mg/dL Estimated GFR (>60) mL/min BUN/Creatinine Ratio (6-22) Glucose (80-110) mg/dL Lactate (0.7-2.1) mmol/L Calcium (8.4-10.2) mg/dL Total Bilirubin (0.2-1.3) mg/dL AST (14-36) IU/L ALT (<35) IU/L Alkaline Phosphatase (38-126) U/L Troponin I (0.01-0.034) ng/mL NT-Pro-B Natriuret Pep (<450) pg/mL Total Protein (6.3-8.2) g/dL Albumin (3.5-5.0) g/dL Globulin (1.7-4.1) g/dL Albumin/Globulin Ratio (1.0-2.8) Chlamy pneumoniae PCR Not detected (Not Detect) Adenovirus (PCR) Not detected (Not Detect) B. pertussis DNA (PCR) Not detected (Not Detecte) B.parapertussis DNA PCR Not detected (Not Detecte) Coronavirus OC43 (PCR) Not detected (Not Detect) Coronavirus HKU1 (PCR) Not detected (Not Detect) Coronavirus 229E (PCR) Not detected (Not Detect) SARS-CoV-2 (PCR) Not detected (Not Detecte) Coronavirus NL63 (PCR) Not detected (Not Detect) Human Metapneumovir PCR Not detected (Not Detect) Influenza Type A (PCR) Not detected (Not Detect) Influenza Type B (PCR) Not detected (Not Detect) M. pneumoniae (PCR) Not detected (Not Detect) Parainfluenza 1 (PCR) Not detected (Not Detect) Parainfluenza 2 (PCR) Not detected (Not Detect) Parainfluenza 3 (PCR) Not detected (Not Detect) Parainfluenza 4 (PCR) Not detected (Not Detect) RSV (PCR) Not detected (Not Detect) Entero/Rhino (PCR) Not detected (Not Detect) 10/25/22 10/25/22 10/25/22 Range/Units 12:25 12:25 12:25 WBC (4.5-11.0) X10^3/uL RBC (4.0-5.2) X10^6/uL Hgb (12.0-16.0) g/dL Hct (36-46) % MCV (80-100) fL MCH (26-34) PG MCHC (30-36) % RDW (11.6-14.8) % Plt Count (150-400) X10^3/uL Neut % (Auto) (50-75) % Lymph % (Auto) (25-40) % [place] % (Auto) (3-14) % Eos % (Auto) (2-4) % Baso % (Auto) (0-2) % Neut # (Auto) (9058-3961) /uL Lymph # (Auto) (3601-6750) /uL [place] # (Auto) (0-900) /uL Eos # (Auto) (0-450) /uL Baso # (Auto) (0-100) /uL PT (10.1-12.7) SECONDS INR (0.9-1.3) D-Dimer 559 H (<500) ng/ml Sodium 137 (137-145) mmol/L Potassium 3.8 (3.4-5.1) mmol/L Chloride 101 (98-107) mmol/L Carbon Dioxide 26 (22-32) mmol/L BUN 12 (7-17) mg/dL Creatinine 0.67 (0.52-1.04) mg/dL Estimated GFR > 60 (>60) mL/min BUN/Creatinine Ratio 17.9 (6-22) Glucose 90 (80-110) mg/dL Lactate 1.4 (0.7-2.1) mmol/L Calcium 9.0 (8.4-10.2) mg/dL Total Bilirubin 0.8 (0.2-1.3) mg/dL AST 33 (14-36) IU/L ALT 22 (<35) IU/L Alkaline Phosphatase 92 (38-126) U/L Troponin I < 0.012 (0.01-0.034) ng/mL NT-Pro-B Natriuret Pep 782 H (<450) pg/mL Total Protein 7.6 (6.3-8.2) g/dL Albumin 4.4 (3.5-5.0) g/dL Globulin 3.2 (1.7-4.1) g/dL Albumin/Globulin Ratio 1.4 (1.0-2.8) Chlamy pneumoniae PCR (Not Detect) Adenovirus (PCR) (Not Detect) B. pertussis DNA (PCR) (Not Detecte) B.parapertussis DNA PCR (Not Detecte) Coronavirus OC43 (PCR) (Not Detect) Coronavirus HKU1 (PCR) (Not Detect) Coronavirus 229E (PCR) (Not Detect) SARS-CoV-2 (PCR) (Not Detecte) Coronavirus NL63 (PCR) (Not Detect) Human Metapneumovir PCR (Not Detect) Influenza Type A (PCR) (Not Detect) Influenza Type B (PCR) (Not Detect) M. pneumoniae (PCR) (Not Detect) Parainfluenza 1 (PCR) (Not Detect) Parainfluenza 2 (PCR) (Not Detect) Parainfluenza 3 (PCR) (Not Detect) Parainfluenza 4 (PCR) (Not Detect) RSV (PCR) (Not Detect) Entero/Rhino (PCR) (Not Detect) 10/25/22 Range/Units 14:33 WBC (4.5-11.0) X10^3/uL RBC (4.0-5.2) X10^6/uL Hgb (12.0-16.0) g/dL Hct (36-46) % MCV (80-100) fL MCH (26-34) PG MCHC (30-36) % RDW (11.6-14.8) % Plt Count (150-400) X10^3/uL Neut % (Auto) (50-75) % Lymph % (Auto) (25-40) % [place] % (Auto) (3-14) % Eos % (Auto) (2-4) % Baso % (Auto) (0-2) % Neut # (Auto) (3090-5627) /uL Lymph # (Auto) (7273-2198) /uL [place] # (Auto) (0-900) /uL Eos # (Auto) (0-450) /uL Baso # (Auto) (0-100) /uL PT (10.1-12.7) SECONDS INR (0.9-1.3) D-Dimer (<500) ng/ml Sodium (137-145) mmol/L Potassium (3.4-5.1) mmol/L Chloride (98-107) mmol/L Carbon Dioxide (22-32) mmol/L BUN (7-17) mg/dL Creatinine (0.52-1.04) mg/dL Estimated GFR (>60) mL/min BUN/Creatinine Ratio (6-22) Glucose (80-110) mg/dL Lactate (0.7-2.1) mmol/L Calcium (8.4-10.2) mg/dL Total Bilirubin (0.2-1.3) mg/dL AST (14-36) IU/L ALT (<35) IU/L Alkaline Phosphatase (38-126) U/L Troponin I < 0.012 (0.01-0.034) ng/mL NT-Pro-B Natriuret Pep (<450) pg/mL Total Protein (6.3-8.2) g/dL Albumin (3.5-5.0) g/dL Globulin (1.7-4.1) g/dL Albumin/Globulin Ratio (1.0-2.8) Chlamy pneumoniae PCR (Not Detect) Adenovirus (PCR) (Not Detect) B. pertussis DNA (PCR) (Not Detecte) B.parapertussis DNA PCR (Not Detecte) Coronavirus OC43 (PCR) (Not Detect) Coronavirus HKU1 (PCR) (Not Detect) Coronavirus 229E (PCR) (Not Detect) SARS-CoV-2 (PCR) (Not Detecte) Coronavirus NL63 (PCR) (Not Detect) Human Metapneumovir PCR (Not Detect) Influenza Type A (PCR) (Not Detect) Influenza Type B (PCR) (Not Detect) M. pneumoniae (PCR) (Not Detect) Parainfluenza 1 (PCR) (Not Detect) Parainfluenza 2 (PCR) (Not Detect) Parainfluenza 3 (PCR) (Not Detect) Parainfluenza 4 (PCR) (Not Detect) RSV (PCR) (Not Detect) Entero/Rhino (PCR) (Not Detect) Urine Dip Bedside Urine Glucose Negative Bedside Urine Bilirubin - Negative Bedside Urine Ketone - Negative Urine Specific [place] 1.010 Bedside Urine Occult Blood - Negative Bedside Urine pH 6.0 Bedside Urine Protein - Negative Bedside Urine Urobilinogen - Negative Bedside Urine Nitrite - Negative Bedside Urine Leukocytes + 70 Esterase Imaging Data Chest x-ray: Radiologist's Impression: [address] [address] XRay Report Signed Patient: Debi Bueno MR#: [id number] : 1945 Acct:[id number] Age/Sex: 77 / F Date of Service: 10/25/22 Loc: ED Accession Number: [id number] ?? Procedure: XR chest 1V Ordering Provider: Nuha Frederick D.O. PROCEDURE:? XR CHEST 1V ? INDICATIONS:? Shortness of breath ? TECHNIQUE:? One view of the chest was acquired.? ? COMPARISON:? [facility], CR, XR CHEST 2V, 12/22/2021, 14:10.? [facility], CR, XR CHEST 2V, 07/13/2021, 11:21. ? FINDINGS:? ? Surgical changes and devices:? None.? ? Lungs and pleura:? Lungs are clear.? No pleural effusions or pneumothorax.? Calcified granuloma in the left lung apex.? ? Mediastinum:? Mediastinal contours appear normal.? Heart size is normal.? ? Bones and chest wall:? No suspicious bony lesions.? Overlying soft tissues appear unremarkable.? ? IMPRESSION:? No acute cardiopulmonary process. ? ? ? Dictated by: Justin Ceja M.D. on 10/25/2022 at 12:41 ? ? Approved by: Justin Ceja M.D. on 10/25/2022 at 12:45?? ECG Data Attestation: I personally reviewed and interpreted this ECG as follows: Interpretation: Sinus rhythm rate of 95 MT 144 QRS is [address] No acute [address] elevation there is some motion artifact in V5 [address] changes appreciated. MDM Narrative Medical decision making narrative: This is a 77-year-old female who presents with complaint of shortness of breath she has some asthma/COPD tends to be more seasonal in worse in the summer which is consistent with her recent presentation she was quite wheezy she did respond to DuoNeb. She did have chest pain last week but none today. Discussed with patient labs including cardiac enzymes dimer she is had a little bit more flare than typical. Chest x-ray which does not show acute change. Patient was given Solu-Medrol, she did recently start Flovent and is supposed to start montelukast but has not. EKG shows acute change. Patient had repeat troponin which is negative. Patient's age adjust dimer is negative she would be 750 based on age in his 559 today. CBC CMP are negative troponin is negative BNP is in the 700 range slightly elevated from her prior 400s. Respiratory panel is negative and chest x-ray was negative for pulmonary edema. On examination no crackles suspect more COPD flares patient was quite wheezy and she felt significantly improved after DuoNeb. She was given 1 dose of Lasix here but felt appropriate to hold off on persistent prescription. She notes she did have an echo in the last several months and is set up for stress testing on about a week which I th ink is very appropriate. I suspect more pulmonary source of her symptoms today she was encouraged to start the montelukast that she is been prescribed, continue her inhalers and prednisone taper with return precautions. Patient continues to feel much improved she is been on room air throughout her sta after breathing treatment. Patient states she feels comfortable with return for discharge home. Reviewed all findings with the patient need for follow-up. Just before discharge patient was about 89% at rest intermittently , with ambulation she is denying any to 92%. She notes she sometimes is in the upper 80s at. She states she feels much better and like discharge home we discussed home O2, patient feels comfortable with follow-up. Did give her contact info for pulmonology here locally. We also discussed if she is symptomatic and has low O2 or is dropping below 88% she needs to return for evaluation. She has a pulse oximeter at and expresses understanding. Discharge Plan Departure Patient Disposition: Home Clinical Impression: Acute exacerbation of chronic obstructive pulmonary disease, Elevated brain natriuretic peptide (BNP) level Activity Restrictions/Additional Instructions: Follow up with your physician for recheck. I suspect your symptoms are mostly related to your lungs but your BNP was elevated today and could reflect some congestive heart failure, follow up with your physician to talk about whether a new ECHO would be appropriate (you may be getting one with your stress test next week). Please take your montelukast daily I think this may help your COPD/asthma exacerbations. Continue to use your albuterol as needed every 4 hours and your Flovent twice daily. Take prednisone prescription until completed and then return to your normal dose of prednisone. Prescription sent to [facility] in [place]. Please return for fevers, increasing shortness of breath, lightheadedness or passing out, new chest pain or pressure, new swelling in her extremities or other new or concerning changes. Prescriptions: New prednisone 10 mg tablets,dose pack See Rx Instructions .ROUTE .COMPLEX Qty: 21 0RF Rx Instructions: Take 60 mg p.o. x1, then 50 mg p.o. x1 day, then 40 mg p.o. x1 day, then 30 mg p.o. x1 day, then 20 mg p.o. x1 day, then 10 mg p.o. x1 day No Action aspirin 81 MG tablet,delayed release (DR/EC) 81 mg PO QDAY Qty: 1 albuterol sulfate 90 mcg/actuation HFA aerosol inhaler 2 inh inhalation Q4-6H PRN (Reason: shortness of breath or wheezing) Qty: 8.5 5RF prednisone 20 mg tablet 20 mg PO DAILY Qty: 30 3RF amlodipine 5 mg tablet 5 mg PO DAILY Qty: 90 3RF ezetimibe 10 mg tablet 10 mg PO DAILY Qty: 90 3RF losartan 100 mg tablet 100 mg PO DAILY Qty: 90 3RF omeprazole 20 mg capsule,delayed release(DR/EC) 20 mg PO DAILY Qty: 90 3RF potassium chloride 10 mEq tablet extended release 10 meq PO DAILY Qty: 90 3RF rosuvastatin 40 mg tablet 40 mg PO DAILY Qty: 90 3RF albuterol sulfate 2.5 mg/0.5 mL solution for nebulization 5 mg inhalation Q6H PRN (Reason: shortness of breath or wheezing) Qty: 30 0RF albuterol sulfate 2.5 mg /3 mL (0.083 %) solution for nebulization 2.5 mg inhalation Q4-6H PRN (Reason: shortness of breath or wheezing) Qty: 75 0RF Referrals: Gloria Jc MD [Primary Care Provider] - Stand Alone Forms: Patient Portal/API
[2022-10-25 13:04] LABS: Alanine Aminotransferase 22 IU/L (<35); Albumin 4.4 g/dL (3.5-5.0); Albumin Globulin Ratio 1.4 (1.0-2.8); Alkaline Phosphatase 92 U/L (38-126); Aspartate Aminotransferase 33 IU/L (14-36); BUN Creatinine Ratio 17.9 (6-22); Bilirubin Total 0.8 mg/dL (0.2-1.3); Blood Urea Nitrogen 12 mg/dL (7-17); Carbon Dioxide 26 mmol/L (22-32); Chloride 101 mmol/L (98-107); Estimated Glomerular Filt Rate > 60 mL/min (>60); Globulin 3.2 g/dL (1.7-4.1); Glucose 90 mg/dL (80-110); HEMOLYSIS 25 (0-50); Lactate (Lactic Acid) 1.4 mmol/L (0.7-2.1); Potassium 3.8 mmol/L (3.4-5.1); Sodium 137 mmol/L (137-145); Total Protein 7.6 g/dL (6.3-8.2)
[2022-10-25 13:15] LABS: NT-proBNP (BNP-Adult 18+) 782 pg/mL (<450); Troponin I < 0.012 ng/mL (0.01-0.034)
[2022-10-25] MEDS: methylPREDNISolone 125 MG/2 ML VIAL IV (13:21)
[2022-10-25] MEDS: EZETIMIBE 10 MG TABLET PO (13:22)
[2022-10-25] MEDS: carvediloL 3.125 MG TABLET PO (13:23)
[2022-10-25] MEDS: LOSARTAN 50 MG TABLET 100 MG PO (13:23)
[2022-10-25 13:24] LABS: D Dimer 559 ng/ml (<500)
[2022-10-25] MEDS: AMLODIPINE 5 MG TABLET 10 MG PO (13:24)
[2022-10-25 13:45] LABS: Adenovirus Not Detected (Not Detect); B. parapertussis Not Detected (Not Detecte); Bordetella pertussis Not Detected (Not Detecte); Chlamydophila pneumoniae Not Detected (Not Detect); Coronavirus 229E Not Detected (Not Detect); Coronavirus HKU1 Not Detected (Not Detect); Coronavirus NL 63 Not Detected (Not Detect); Coronavirus OC43 Not Detected (Not Detect); Human Metapneumovirus Not Detected (Not Detect); Human Rhinovirus/Enterovirus Not Detected (Not Detect); Influenza A Not Detected (Not Detect); Influenza B Not Detected (Not Detect); Parainfluenza Virus 1 Not Detected (Not Detect); Parainfluenza Virus 2 Not Detected (Not Detect); Parainfluenza Virus 3 Not Detected (Not Detect); Parainfluenza Virus 4 Not Detected (Not Detect); Respiratory Syncytial Virus Not Detected (Not Detect); SARS- CoV-2 Not Detected (Not Detecte)
[2022-10-25 13:46] LABS: Mycoplasma pneumoniae Not Detected (Not Detect)
[2022-10-25] MEDS: FUROSEMIDE 40 MG/4 ML VIAL IV (14:37)
[2022-10-25 15:10] LABS: Troponin I < 0.012 ng/mL (0.01-0.034)
--- NOTE | 2022-10-25 16:50 | PC.NURSE ---
Scattered wheezing much improved from previous exam. Able to speak in full sentences. Ambulatory w/o difficulty or increased shortness of breath. a/o x 4. States she feels much improved and at base line.
== END 2022-10-25 16:57 | disposition home or self-care (01) ==
PROVIDERS: Emergency Provider Emergency Medicine; PCP Internal Medicine Geriatric Medicine
DX: J44.1 Chronic obstructive pulmonary disease with (acute) exacerbation (principal); R79.89 Other specified abnormal findings of blood chemistry; Z20.822 Contact with and (suspected) exposure to COVID-19
CPT/HCPCS: 36415; 71045; 80053; 81003; 83605; 83880; 84484; 85025; 85379; 85610; 87633; 93005; 93010; 94150; 96374; 96375; 99284; 99285; J1940; J2930

== ENCOUNTER 2023-01-16 14:59 | Inpatient (IN) | payer MEDICARE, SELFPAY ==
[2020-04-13 13:29] VITALS: BMI 22.8
[2023-01-16] VITALS (11 sets, daily range): BP systolic 116–162; BP diastolic 57–78; PULSE 102–119; RESP 18–33; TEMP 36.4–37.2; O2SAT 87–99; BMI 23.0
--- NOTE | 2023-01-16 15:19 | ED_ITS ---
HPI - Asthma General Chief Complaint: Asthma Stated Complaint: asthma attack, SOB Time Seen by Provider: 01/16/23 15:00 Source: patient Mode of arrival: Wheelchair History of Present Illness HPI Narrative: 77-year-old female with history of asthma presents by private vehicle from home for asthma exacerbation. She is been trying to use her inhalers at home, but she is still short of breath. She took 2 tablets of as needed prednisone, but states that she does not regularly take prednisone at home. Patient noted to be wheezing, tachypneic, saturating 93% on room air in triage. Related Data Home Medications Medication Instructions Recorded Confirmed aspirin 81 mg tablet,delayed 81 mg PO QDAY ##1 04/20/11 01/16/23 release carvedilol 3.125 mg tablet 3.125 mg PO BID 01/16/23 01/16/23 Previous Rx's Medication Instructions Recorded albuterol sulfate 2.5 mg/0.5 mL 5 mg inhalation Q6H PRN shortness 07/13/21 solution for nebulization of breath or wheezing #30 ea amlodipine 5 mg tablet 5 mg PO DAILY #90 tabs 12/01/21 ezetimibe 10 mg tablet 10 mg PO DAILY #90 tabs 12/01/21 losartan 100 mg tablet 100 mg PO DAILY #90 tabs 12/01/21 omeprazole 20 mg capsule,delayed 20 mg PO DAILY #90 caps 12/01/21 release potassium chloride 10 mEq 10 meq PO DAILY #90 tabs 12/01/21 tablet,extended release rosuvastatin 40 mg tablet 40 mg PO DAILY #90 tabs 12/01/21 albuterol sulfate 2.5 mg/3 mL 2.5 mg (3 mL) inhalation Q4-6H PRN 12/22/21 (0.083 %) solution for nebulization shortness of breath or wheezing #75 mL prednisone 20 mg tablet 20 mg PO DAILY #30 tabs 03/09/22 prednisone 10 mg tablets in a dose See Rx Instructions .Route 10/25/22 pack .COMPLEX #21 ea albuterol sulfate 90 mcg/actuation 2 inh inhalation Q4-6H PRN 01/14/23 aerosol inhaler shortness of breath or wheezing #8.5 grams Allergies Allergy/AdvReac Type Severity Reaction Status Date / Time adhesive Allergy Unknown Verified 10/25/22 12:33 moxifloxacin Allergy Unknown Verified 10/25/22 12:33 atorvastatin [ATORVASTATIN] AdvReac Intermediate MUSCLE Verified 10/25/22 12:33 WEAKNESS lisinopril [LISINOPRIL] AdvReac Intermediate COUGH Verified 10/25/22 12:33 Review of Systems Review of Systems Narrative: CONSTITUTIONAL- Denies: fever, chills, fatigue HEENT- Denies: sore throat, nosebleed, vision changes RESPIRATORY-reports: Shortness of breath, wheezing, cough CARDIAC- Denies: chest pain, edema, orthopnea GI- Denies: abdominal pain, nausea, vomiting, constipation, diarrhea - Denies: frequency, dysuria, hematuria, flank pain MSK- Denies: extremity pain, extremity swelling, joint pain, joint swelling SKIN- Denies: rash, itching, burn, swelling NEUROLOGICAL- Denies: headache, numbness, weakness, dizziness PSYCHIATRIC- Denies: anxiety, depression, suicidal ideation, homicidal ideation Patient History Medical History Advanced directives, counseling/discussion Coronary artery disease Medicare annual wellness visit, initial Osteopenia GERD without esophagitis Mixed hyperlipidemia Essential hypertension HLD (hyperlipidemia) PVD (peripheral vascular disease) with claudication COPD (chronic obstructive pulmonary disease) Surgical History Status post delivery Social History household members: spouse and children Smoking Status: Former smoker Smoking Status: Former smoker alcohol intake frequency: holidays/special occasions only Substance Use Type: does not use Exam Initial Vital Signs Initial Vital Signs: Vital Signs Temperature 98.3 F 01/16/23 15:05 Pulse Rate 115 H 01/16/23 15:05 Respiratory Rate 28 H 01/16/23 15:05 Blood Pressure 162/78 H 01/16/23 15:05 Pulse Oximetry 90 L 01/16/23 15:05 Oxygen Delivery Method Room Air 01/16/23 15:05 Const: Awake, alert, moderate distress, nontoxic Eyes: PERRL, EOMI, conjunctiva normal ENT: Atraumatic, dentition normal, mucous membranes moist Cardiac: Tachycardia, regular rhythm RESP: Mild increased work of breathing, loud expiratory wheezes bilaterally GI: Atraumatic, soft, nontender, nondistended, no rebound, no guarding MSK: Atraumatic, full range of motion, pulses equal Skin: Warm, Dry, intact, no rashes Neuro: AO x3, CN II-XII grossly intact, moves all extremities Psych: affect normal, mood normal, not suicidal, not homicidal Course Course Course Narrative: Acute asthma exacerbation. Placed on supplemental nasal cannula. Respiratory therapy paged for evaluation. We will give steroids and nebulizers. Orders Ordered: ED Orders 01/16/23 15:10 RT Consult Eval and Treat NOW 01/16/23 15:31 CBC Auto Diff [Complete Blood Count AUTO DIFF] Stat CMP [Comprehensive Metabolic Panel] Stat 01/16/23 16:03 Chest [XR chest 1V] Stat 01/16/23 16:15 Covid-19 + FLU A/B + RSV - PCR Stat Discontinued Medications Albuterol/Ipratropium (Albuterol/Ipratropium 3 Ml Ampul) 9 ml INH NOW ONE Stop: 01/16/23 15:19 Last Admin: 01/16/23 15:24 Dose: 9 ml Documented By: DIXIE Methylprednisolone (Methylprednisolone 125 Mg/2 Ml Vial) 125 mg IV NOW ONE Stop: 01/16/23 15:19 Last Admin: 01/16/23 15:45 Dose: 125 mg Documented By: TEP Reevaluation(s) Reevaluation #1: Patient reports feeling improved after nebulizers, but still with loud expiratory wheezes and oxygen saturations have now dropped to 88% on room air. Continued on nasal cannula. Plan to admit for additional steroids, nebulizers, treatment. Vital Signs Vital signs: Vital Signs - 8 hr 01/16/23 15:05 01/16/23 15:17 01/16/23 15:18 Temperature 98.3 F Pulse Rate 115 H 119 H 115 H Respiratory Rate 28 H Blood Pressure 162/78 H Pulse Oximetry 90 L 90 L 87 L Oxygen Delivery Method Room Air 01/16/23 15:18 01/16/23 15:25 01/16/23 15:30 Temperature Pulse Rate 109 H Respiratory Rate 26 H Blood Pressure 153/74 H Pulse Oximetry 92 99 Oxygen Delivery Method Room Air 01/16/23 16:00 01/16/23 16:30 01/16/23 17:00 Temperature 98.9 F 98.9 F Pulse Rate 118 H 109 H 102 H Respiratory Rate 33 H 26 H 24 Blood Pressure Pulse Oximetry 93 96 95 Oxygen Delivery Method MDM - Asthma Differential Diagnosis Differential diagnosis: Likely Acute exacerbation, Status asthmaticus and Acute asthmatic bronchitis Lab Data 01/16/23 15:31 01/16/23 15:31 Labs: Lab Results 01/16/23 01/16/23 Range/Units 15:31 16:15 WBC 8.0 (4.5-11.0) X10^3/uL RBC 4.88 (4.0-5.2) X10^6/uL Hgb 14.0 (12.0-16.0) g/dL Hct 42.9 (36-46) % MCV 87.8 (80-100) fL MCH 28.7 (26-34) PG MCHC 32.7 (30-36) % RDW 13.9 (11.6-14.8) % Plt Count 387 (150-400) X10^3/uL Neut % (Auto) 57.5 (50-75) % Lymph % (Auto) 19.7 L (25-40) % [place] % (Auto) 10.4 (3-14) % Eos % (Auto) 11.8 H (2-4) % Baso % (Auto) 0.6 (0-2) % Neut # (Auto) 4600 (5071-3071) /uL Lymph # (Auto) 1600 (7448-4687) /uL [place] # (Auto) 800 (0-900) /uL Eos # (Auto) 900 H (0-450) /uL Baso # (Auto) 0 (0-100) /uL Sodium 139 (137-145) mmol/L Potassium 3.5 (3.4-5.1) mmol/L Chloride 101 (98-107) mmol/L Carbon Dioxide 30 (22-32) mmol/L BUN 11 (7-17) mg/dL Creatinine 0.63 (0.52-1.04) mg/dL Estimated GFR > 60 (>60) mL/min BUN/Creatinine Ratio 17.5 (6-22) Glucose 98 (80-110) mg/dL Calcium 9.2 (8.4-10.2) mg/dL Total Bilirubin 0.7 (0.2-1.3) mg/dL AST 36 (14-36) IU/L ALT 26 (<35) IU/L Alkaline Phosphatase 81 (38-126) U/L Total Protein 7.7 (6.3-8.2) g/dL Albumin 4.1 (3.5-5.0) g/dL Globulin 3.6 (1.7-4.1) g/dL Albumin/Globulin Ratio 1.1 (1.0-2.8) SARS-CoV-2 (PCR) Negative (Negative) Influenza A (RT-PCR) Flu a negative (NEGATIVE) Influenza B (RT-PCR) Flu b negative (NEGATIVE) RSV (PCR) Negative (Negative) Discharge Plan Departure Patient Disposition: Admitted as Observation Clinical Impression: Acute hypoxemic respiratory failure Asthma exacerbation Qualifiers: Asthma severity: moderate Asthma persistence: unspecified Qualified Code(s): J 45.901 - Unspecified asthma with (acute) exacerbation Admit Date/Time: 01/16/23 18:12 Admit Provider: Jorge Alberto Brooks
[2023-01-16] MEDS: ALBUTEROL/IPRATROPIUM 3 ML AMPUL 9 ML INH (15:24)
[2023-01-16] MEDS: methylPREDNISolone 125 MG/2 ML VIAL IV (15:45)
[2023-01-16 15:58] LABS: Alanine Aminotransferase 26 IU/L (<35); Albumin 4.1 g/dL (3.5-5.0); Albumin Globulin Ratio 1.1 (1.0-2.8); Alkaline Phosphatase 81 U/L (38-126); Aspartate Aminotransferase 36 IU/L (14-36); BUN Creatinine Ratio 17.5 (6-22); Bilirubin Total 0.7 mg/dL (0.2-1.3); Blood Urea Nitrogen 11 mg/dL (7-17); Calcium 9.2 mg/dL (8.4-10.2); Carbon Dioxide 30 mmol/L (22-32); Chloride 101 mmol/L (98-107); Estimated Glomerular Filt Rate > 60 mL/min (>60); Globulin 3.6 g/dL (1.7-4.1); Glucose 98 mg/dL (80-110); HEMOLYSIS < 15 (0-50); Potassium 3.5 mmol/L (3.4-5.1); Sodium 139 mmol/L (137-145); Total Protein 7.7 g/dL (6.3-8.2)
--- NOTE | 2023-01-16 16:03 | DI.RAD.S_ITS ---
PROCEDURE: XR CHEST 1V INDICATIONS: dyspnea/asthma/cough TECHNIQUE: One view of the chest was acquired. COMPARISON: [facility], CR, XR CHEST 1V, 10/25/2022, 12:36. [facility], CR, XR CHEST 2V, 12/22/2021, 14:10. FINDINGS: Surgical changes and devices: None. Lungs and pleura: Lungs are clear. No pleural effusions or pneumothorax. Mediastinum: Mediastinal contours appear normal. Heart size is normal. The aorta has atherosclerotic calcifications. Bones and chest wall: No suspicious bony lesions. Overlying soft tissues appear unremarkable. IMPRESSION: Portable chest within normal limits for age. Dictated by: Doe Swartz M.D. on 01/16/2023 at 16:58 Approved by: Doe Swartz M.D. on 01/16/2023 at 16:59
[2023-01-16 16:05] LABS: Add Manual Diff / Slide Review NO; Basophils Absolute Auto 0 /uL (0-100); Basophils Percent Auto 0.6 % (0-2); Eosinophils Absolute Auto 900 /uL (0-450); Eosinophils Percent Auto 11.8 % (2-4); Hematocrit 42.9 % (36-46); Lymphocytes Absolute Auto 1600 /uL (1100-4500); Lymphocytes Percent Auto 19.7 % (25-40); Mean Corpuscular HGB Conc 32.7 % (30-36); Mean Corpuscular Hemoglobin 28.7 PG (26-34); Mean Corpuscular Volume 87.8 fL (80-100); Monocytes Absolute Auto 800 /uL (0-900); Monocytes Percent Auto 10.4 % (3-14); Neutrophils Absolute Auto 4600 /uL (1500-7000); Neutrophils Percent Auto 57.5 % (50-75); Platelet Count 387 X10^3/uL (150-400); Red Blood Cell Count 4.88 X10^6/uL (4.0-5.2); Red Cell Distribution Width 13.9 % (11.6-14.8)
--- NOTE | 2023-01-16 16:18 | PC.NURSE ---
Notified provider of oxygen saturation of 88% on RA. Orders received for oxygen as needed and respiratory swab. Pt placed on 3L and Respiratory Therapy in room to assess.
[2023-01-16 17:00] LABS: Influenza A - CEPHEID Flu A NEGATIVE (NEGATIVE); Influenza B - CEPHEID Flu B NEGATIVE (NEGATIVE); Respiratory Syncytial Virus Negative (Negative)
[2023-01-16 17:03] LABS: COVID-19 CEPHEID 4-PLEX PCR Negative (Negative)
--- NOTE | 2023-01-16 18:10 | P.HP_ITS ---
History of Present Illness History of Present Illness Date Patient Seen: 01/16/23 Time Patient Seen: 18:00 Chief complaint: asthma attack, SOB Narrative: Ms. Bueno is a 77W with PMH COPD vs asthma, CAD, HTN, HL, osteopenia who presents to the hospital with shortness of breath. She is a former smoker, and has documentation of COPD in her early notes, but more recently has been documented as having asthma. Regardless she is on an unusual steroid regimen. She states she has lots of prednisone at home which she takes when she starts feeling worse. She started taking prednisone a month ago for worsening shortness of breath. She decided to take between 10mg or 20mg daily depending on how she was feeling for the last month. Today she felt like she couldn't breath. She was not coughing up any sputum. She had no fevers/chills. In the ED workup was done, vitals notable for afebrile, tachycardic to the 110s, tachypneic to the 20s, sats in the 80s on room air. Labs reviewed by me and notable for WBC 8.0, hgb 14.0. Na 139, creatinine 0.63. Flu negative, RSV negative. COVID negative. Chest xray with no acute process. She was given steroids and nebs and admitted for further treatment. [facility] Medical History Advanced directives, counseling/discussion Coronary artery disease Medicare annual wellness visit, initial Osteopenia GERD without esophagitis Mixed hyperlipidemia Essential hypertension HLD (hyperlipidemia) PVD (peripheral vascular disease) with claudication COPD (chronic obstructive pulmonary disease) Surgical History Status post delivery Social History household members: spouse and children Smoking Status: Former smoker Meds Home Medications and Allergies Home Medications Medication Instructions Recorded Confirmed Type aspirin 81 mg tablet,delayed 81 mg PO QDAY ##1 04/20/11 01/16/23 History release albuterol sulfate 2.5 mg/0.5 mL 5 mg inhalation Q6H PRN shortness 07/13/21 01/16/23 Rx solution for nebulization of breath or wheezing #30 ea amlodipine 5 mg tablet 5 mg PO DAILY #90 tabs 12/01/21 01/16/23 Rx ezetimibe 10 mg tablet 10 mg PO DAILY #90 tabs 12/01/21 01/16/23 Rx losartan 100 mg tablet 100 mg PO DAILY #90 tabs 12/01/21 01/16/23 Rx omeprazole 20 mg capsule,delayed 20 mg PO DAILY #90 caps 12/01/21 01/16/23 Rx release potassium chloride 10 mEq 10 meq PO DAILY #90 tabs 12/01/21 01/16/23 Rx tablet,extended release rosuvastatin 40 mg tablet 40 mg PO DAILY #90 tabs 12/01/21 01/16/23 Rx albuterol sulfate 2.5 mg/3 mL 2.5 mg (3 mL) inhalation Q4-6H PRN 12/22/21 Rx (0.083 %) solution for nebulization shortness of breath or wheezing #75 mL prednisone 20 mg tablet 20 mg PO DAILY #30 tabs 03/09/22 01/16/23 Rx prednisone 10 mg tablets in a dose See Rx Instructions .Route 10/25/22 01/16/23 Rx pack .COMPLEX #21 ea albuterol sulfate 90 mcg/actuation 2 inh inhalation Q4-6H PRN 01/14/23 Rx aerosol inhaler shortness of breath or wheezing #8.5 grams carvedilol 3.125 mg tablet 3.125 mg PO BID 01/16/23 01/16/23 History Allergies Allergy/AdvReac Type Severity Reaction Status Date / Time adhesive Allergy Unknown Verified 10/25/22 12:33 moxifloxacin Allergy Unknown Verified 10/25/22 12:33 atorvastatin [ATORVASTATIN] AdvReac Intermediate MUSCLE Verified 10/25/22 12:33 WEAKNESS lisinopril [LISINOPRIL] AdvReac Intermediate COUGH Verified 10/25/22 12:33 Review of Systems Review of Systems Narrative: 14 systems reviewed and negative aside from what is noted in HPI Exam Vital Signs (past 8 hours): - 01/16/23 15:05 01/16/23 15:17 01/16/23 15:18 Temperature 98.3 F Pulse Rate 115 H 119 H 115 H Respiratory Rate 28 H Blood Pressure 162/78 H Pulse Oximetry 90 L 90 L 87 L Oxygen Delivery Method Room Air 01/16/23 15:18 01/16/23 15:25 01/16/23 15:30 Temperature Pulse Rate 109 H Respiratory Rate 26 H Blood Pressure 153/74 H Pulse Oximetry 92 99 Oxygen Delivery Method Room Air 01/16/23 16:00 01/16/23 16:30 01/16/23 17:00 Temperature 98.9 F 98.9 F Pulse Rate 118 H 109 H 102 H Respiratory Rate 33 H 26 H 24 Blood Pressure Pulse Oximetry 93 96 95 Oxygen Delivery Method Oxygen Delivery Method Room Air Narrative Exam Narrative: GEN: in respiratory distress CV: tachycardic, no murmurs PULM: wheezes, bilaterally ABD: soft, nontender EXT: warm and well perfused with no edema Objective Labs 01/16/23 15:31 01/16/23 15:31 Labs: Laboratory Results - last 24 hr 01/16/23 01/16/23 15:31 16:15 WBC 8.0 RBC 4.88 Hgb 14.0 Hct 42.9 MCV 87.8 MCH 28.7 MCHC 32.7 RDW 13.9 Plt Count 387 Neut % (Auto) 57.5 Lymph % (Auto) 19.7 L [place] % (Auto) 10.4 Eos % (Auto) 11.8 H Baso % (Auto) 0.6 Neut # (Auto) 4600 Lymph # (Auto) 1600 [place] # (Auto) 800 Eos # (Auto) 900 H Baso # (Auto) 0 Sodium 139 Potassium 3.5 Chloride 101 Carbon Dioxide 30 BUN 11 Creatinine 0.63 Estimated GFR > 60 BUN/Creatinine Ratio 17.5 Glucose 98 Calcium 9.2 Total Bilirubin 0.7 AST 36 ALT 26 Alkaline Phosphatase 81 Total Protein 7.7 Albumin 4.1 Globulin 3.6 Albumin/Globulin Ratio 1.1 SARS-CoV-2 (PCR) Negative Influenza A (RT-PCR) Flu a negative Influenza B (RT-PCR) Flu b negative RSV (PCR) Negative Assessment & Plan Assessment & Plan narrative: 1. Acute hypoxemic respiratory failure secondary to COPD exacerbation -she has already been on steroids for worsening respiratory distress, has been undertreating herself with prednisone -will order IV methylpred -also ordered nebs and azithromycin -wean oxygen as able -will need prednisone taper since she is likely physiologically dependent on steroids -did discuss with her the many side effects of steroids including high blood sugar, bone fracture, fluid retention, weakness, thin skin, immune suppression 2. CAD and hypertension -continue coreg, losartan, amlodipine CODE: Full Proxy: Angeli Bueno, I have discussed plan and obtained history from the patient. I have discussed plan of care with ED physician and bedside nurse. I have reviewed labs, imaging. Quality MIPS - Meds 'Current medications' to include all prescriptions, [id number] products, herbals, cannabis/cannabidiol products, and vitamin/mineral/dietary (nutritional) supplements. I have utilized all available resources to obtain, update, or review the patient?s current medications. [If Yes, STOP here]: Yes
--- NOTE | 2023-01-16 18:11 | PC.NURSE ---
report given to Roslyn SHAW on Acute. pt to go to rm [id number]
[2023-01-16] MEDS: ALBUTEROL/IPRATROPIUM 3 ML AMPUL INH (19:07)
[2023-01-16] MEDS: AZITHROMYCIN 500 MG in DEXTROSE 5% IN WATER 250 ML 250 MG IV (19:12)
[2023-01-17] VITALS (10 sets, daily range): BP systolic 114–151; BP diastolic 64–76; PULSE 93–119; RESP 16–22; TEMP 35.9–37.1; O2SAT 92–94
[2023-01-17] MEDS: methylPREDNISolone 125 MG/2 ML VIAL 60 MG IV ×2 (06:17→18:55)
[2023-01-17 06:55] LABS: Add Manual Diff / Slide Review NO; Basophils Absolute Auto 0 /uL (0-100); Basophils Percent Auto 0.3 % (0-2); Eosinophils Absolute Auto 0 /uL (0-450); Hematocrit 39.4 % (36-46); Hemoglobin 13.1 g/dL (12.0-16.0); Lymphocytes Absolute Auto 600 /uL (1100-4500); Lymphocytes Percent Auto 9.2 % (25-40); Mean Corpuscular HGB Conc 33.2 % (30-36); Mean Corpuscular Hemoglobin 28.8 PG (26-34); Mean Corpuscular Volume 86.6 fL (80-100); Monocytes Absolute Auto 100 /uL (0-900); Monocytes Percent Auto 2.3 % (3-14); Neutrophils Absolute Auto 5300 /uL (1500-7000); Neutrophils Percent Auto 88.2 % (50-75); Platelet Count 342 X10^3/uL (150-400); Red Blood Cell Count 4.56 X10^6/uL (4.0-5.2); Red Cell Distribution Width 13.7 % (11.6-14.8)
[2023-01-17 07:11] LABS: BUN Creatinine Ratio 26.8 (6-22); Blood Urea Nitrogen 15 mg/dL (7-17); Calcium 9.2 mg/dL (8.4-10.2); Carbon Dioxide 25 mmol/L (22-32); Chloride 103 mmol/L (98-107); Estimated Glomerular Filt Rate > 60 mL/min (>60); Glucose 131 mg/dL (80-110); HEMOLYSIS 22 (0-50); Potassium 4.1 mmol/L (3.4-5.1); Sodium 135 mmol/L (137-145)
[2023-01-17] MEDS: AZITHROMYCIN 250 MG TABLET 500 MG PO (09:11)
[2023-01-17] MEDS: ENOXAPARIN 40 MG/0.4 ML SYRINGE SUBCUT (09:11)
[2023-01-17] MEDS: ALBUTEROL/IPRATROPIUM 3 ML AMPUL INH ×4 (09:32→23:02)
--- NOTE | 2023-01-17 12:14 | PM.PN.1 ---
Subjective Subjective Interval history: Patient feeling a little better today, but still with a cough and wheezing. O2 down from 3L to 1.5L. Exam Vital Signs (past 8 hours): - 01/17/23 06:05 01/17/23 08:00 01/17/23 08:05 Temperature 96.6 F L 98.3 F Pulse Rate 108 H 94 H Respiratory Rate 18 16 Blood Pressure 151/74 H 136/76 Pulse Oximetry 92 93 Oxygen Delivery Method Nasal Cannula Oxygen Flow Rate 1 1.5 Oxygen Delivery Method Nasal Cannula Oxygen Flow Rate 1.5 Narrative Exam Narrative: GEN: NAD, coughing frequently CV: tachycardic, no murmurs PULM: expiratory wheezes bilaterally ABD: soft, nontender EXT: warm and well perfused with no edema Objective Labs 01/17/23 06:42 01/17/23 06:42 Labs: Laboratory Results - last 24 hr 01/16/23 01/16/23 01/17/23 15:31 16:15 06:42 WBC 8.0 6.0 RBC 4.88 4.56 Hgb 14.0 13.1 Hct 42.9 39.4 MCV 87.8 86.6 MCH 28.7 28.8 MCHC 32.7 33.2 RDW 13.9 13.7 Plt Count 387 342 Neut % (Auto) 57.5 88.2 H D Lymph % (Auto) 19.7 L 9.2 L [place] % (Auto) 10.4 2.3 L Eos % (Auto) 11.8 H 0.0 L Baso % (Auto) 0.6 0.3 Neut # (Auto) 4600 5300 Lymph # (Auto) 1600 600 L [place] # (Auto) 800 100 Eos # (Auto) 900 H 0 Baso # (Auto) 0 0 Sodium 139 135 L Potassium 3.5 4.1 Chloride 101 103 Carbon Dioxide 30 25 BUN 11 15 Creatinine 0.63 0.56 Estimated GFR > 60 > 60 BUN/Creatinine Ratio 17.5 26.8 H Glucose 98 131 H Calcium 9.2 9.2 Total Bilirubin 0.7 AST 36 ALT 26 Alkaline Phosphatase 81 Total Protein 7.7 Albumin 4.1 Globulin 3.6 Albumin/Globulin Ratio 1.1 SARS-CoV-2 (PCR) Negative Influenza A (RT-PCR) Flu a negative Influenza B (RT-PCR) Flu b negative RSV (PCR) Negative [facility] Medical History Advanced directives, counseling/discussion Coronary artery disease Medicare annual wellness visit, initial Osteopenia GERD without esophagitis Mixed hyperlipidemia Essential hypertension HLD (hyperlipidemia) PVD (peripheral vascular disease) with claudication COPD (chronic obstructive pulmonary disease) Surgical History Status post delivery Social History household members: spouse and children Smoking Status: Former smoker alcohol intake: current Assessment & Plan Assessment & Plan narrative: 1. Acute hypoxemic respiratory failure secondary to COPD exacerbation, with h/o asthma, improving -she has already been on steroids for worsening respiratory distress, has been undertreating herself with prednisone -continue IV methylpred 60mg BID -also ordered nebs and azithromycin x3 days -wean oxygen as able, now down to 1.5L from 3L -will need prednisone taper since she is likely physiologically dependent on steroids -did discuss with her the many side effects of steroids including high blood sugar, bone fracture, fluid retention, weakness, thin skin, immune suppression 2. CAD and hypertension -continue coreg, losartan, amlodipine CODE: Full Proxy: Angeli Goelu, Dispo: 1-2 more days to treat COPD exac and wean O2.
[2023-01-17] MEDS: LOSARTAN 50 MG TABLET 100 MG PO (14:45)
[2023-01-17] MEDS: AMLODIPINE 5 MG TABLET PO (14:45)
--- NOTE | 2023-01-17 15:55 | CM.DANOTE ---
Patient is a 77 yo female who was admitted on 01/16/23 for SOB. Pt has [facility] and [employer] for insurance and her PCP is Dr. Gloria Jc. EMR was reviewed. Per MD, pt with hx of COPD and asthma and had been taking steroids for her breathing and admitted for Acute hypoxic respiratory failure second to COPD exac. Pt currently on 2LO2 and no home O2 at baseline. SW met bedside with pt and explained role and she confirms she lives at home in [place] with her and adult Dtr. Pt is very independent at baseline with ADLs and does not use DME for ambulation and still drives. Pt denies any hx of HH or SNF but states her had a prior CVA with some residual weakness and uses a walker but is able to complete his own ADLs and she only does min assist for him but no physical assist. Pt does not anticipate any d/c needs and states her car is in the parking lot as she drove herself to the ED and plans to transport herself home when stable. Plan: SW to follow for pt to be weaned to room air and then likely home with family and to follow for any further identified discharge planning needs. [employer] Discharge Planning/Care Management CM Discharge Assessment Start: 01/17/23 15:54 Freq: Status: Active Protocol: Document 01/17/23 15:54 BF (Rec: 01/17/23 15:55 BF [id number]) Discharge Planning Assessment Assigned Kettle Chipper LACHO Toth DPOA/Assigned Designee Name sposue and Dtr Advance Directives? No Advance Directives on File No History Provided By Patient,Medical Record Has Patient been admitted in last 30 No days? Prior Living Arrangements House Household Members spouse,children Comment Spouse and adult Dtr Type of transporation used prior to Drives own vehicle admit Independent with ADL's Yes Is patient alert and oriented? Yes Caregiver for Another Yes: min assist to spouse that had CVA Barriers to Discharge No Discharge Plan Home Transportation Arrangement Own vehicle in parking lot Referrals Initiated None needed Additional Comment At this time Whiteboard Updated in Patient Room with Yes name and ext. # of Kettle Chipper Review Status In Process Please Provide Date Initial DC 01/17/23 Assessment Was Performed Next Review Type Continued Stay Review
[2023-01-17] MEDS: LOPERAMIDE 2 MG CAPSULE PO (16:59)
[2023-01-17] MEDS: carvediloL 3.125 MG TABLET PO (20:21)
[2023-01-18] VITALS: BP 133/66; PULSE 83; RESP 16; TEMP 36.7; O2SAT 94
[2023-01-18 06:00] VITALS: PULSE 80; RESP 18; TEMP 36.9; O2SAT 94
[2023-01-18] MEDS: methylPREDNISolone 125 MG/2 ML VIAL 60 MG IV (06:20)
[2023-01-18 06:45] VITALS: BP 136/75
--- NOTE | 2023-01-18 08:11 | P.DS_ITS ---
History of Present Illness History of Present Illness Date Patient Seen: 01/16/23 Time Patient Seen: 18:00 Chief complaint: asthma attack, SOB Narrative: Ms. Bueno is a 77W with PMH COPD vs asthma, CAD, HTN, HL, osteopenia who presents to the hospital with shortness of breath. She is a former smoker, and has documentation of COPD in her early notes, but more recently has been documented as having asthma. Regardless she is on an unusual steroid regimen. She states she has lots of prednisone at home which she takes when she starts feeling worse. She started taking prednisone a month ago for worsening shortness of breath. She decided to take between 10mg or 20mg daily depending on how she was feeling for the last month. Today she felt like she couldn't breath. She was not coughing up any sputum. She had no fevers/chills. In the ED workup was done, vitals notable for afebrile, tachycardic to the 110s, tachypneic to the 20s, sats in the 80s on room air. Labs reviewed by me and notable for WBC 8.0, hgb 14.0. Na 139, creatinine 0.63. Flu negative, RSV negative. COVID negative. Chest xray with no acute process. She was given steroids and nebs and admitted for further treatment. Discharge Providers Provider Date of admission: 01/16/23 18:12 Discharge Date: 01/18/23 Primary care physician: Gloria Jc MD Discharge provider: Delfino Bliss DO Summary Hospital Course Discharge Diagnosis: 1. Acute hypoxemic respiratory failure secondary to COPD exacerbation, with h/o asthma, improving -she has already been on steroids for worsening respiratory distress, has been undertreating herself with prednisone -continue IV methylpred 60mg BID -also ordered nebs and azithromycin x3 days -wean oxygen as able, now down to 1.5L from 3L -will need prednisone taper since she is likely physiologically dependent on steroids -did discuss with her the many side effects of steroids including high blood sugar, bone fracture, fluid retention, weakness, thin skin, immune suppression -weaned to room air on 01/18 -sent home on 3 more days of 40mg po prednisone -advised her to see pulmonology for a PFT to determine her COPD severity -if continues to have exacerbations, may want to consider switching off beta- eddie 2. CAD and hypertension -continue coreg, losartan, amlodipine Hospital Course: Admitted for COPD exacerbation. Improved over 2 days with IV solumedrol, azithro and duonebs. Weaned off O2 to room air. Sent home with 3 more days of 40mg po prednisone. She will f/up with pulmonology for a PFT which was already scheduled but she had to cancel so she will call to reschedule it. Exam Vital Signs (past 8 hours): - 01/18/23 06:00 01/18/23 06:45 Temperature 98.4 F Pulse Rate 80 Respiratory Rate 18 Blood Pressure 136/75 Pulse Oximetry 94 Oxygen Flow Rate 0 Oxygen Delivery Method Nasal Cannula Oxygen Flow Rate 0 Narrative Exam Narrative: GEN: NAD, looks much better today CV: non-tachycardic, no murmurs PULM: expiratory wheezes bilaterally have improved significantly ABD: soft, nontender EXT: warm and well perfused with no edema Objective Labs 01/17/23 06:42 01/17/23 06:42 [facility] Medical History Advanced directives, counseling/discussion Coronary artery disease Medicare annual wellness visit, initial Osteopenia GERD without esophagitis Mixed hyperlipidemia Essential hypertension HLD (hyperlipidemia) PVD (peripheral vascular disease) with claudication COPD (chronic obstructive pulmonary disease) Surgical History Status post delivery Social History household members: spouse and children Smoking Status: Former smoker alcohol intake: current Discharge Plan Discharge Plan Patient Disposition: Home Provider Discharge Comment: You were admitted for a COPD exacerbation. This improved with steroids, antibiotics and nebulizers. You will finish a few more days of oral prednisone at home. You might want to consider being assessed by pulmonology for a PFT or pulmonary function test to see if you in fact have COPD and if you need special inhalers for this. Discharge orders & Medications Prescriptions: New prednisone 20 mg tablet 40 mg PO DAILY 3 Days Qty: 6 0RF Rx Instructions: start on 01/19 Continued aspirin 81 MG tablet,delayed release (DR/EC) 81 mg PO QDAY Qty: 1 prednisone 20 mg tablet 20 mg PO DAILY Qty: 30 3RF albuterol sulfate 90 mcg/actuation HFA aerosol inhaler 2 inh inhalation Q4-6H PRN (Reason: shortness of breath or wheezing) Qty: 8.5 0RF Rx Instructions: Patient is overdue for annual appt with Dr. Mena. Please call to schedule an appointment. Thank you! amlodipine 5 mg tablet 5 mg PO DAILY Qty: 90 3RF ezetimibe 10 mg tablet 10 mg PO DAILY Qty: 90 3RF losartan 100 mg tablet 100 mg PO DAILY Qty: 90 3RF omeprazole 20 mg capsule,delayed release(DR/EC) 20 mg PO DAILY Qty: 90 3RF potassium chloride 10 mEq tablet extended release 10 meq PO DAILY Qty: 90 3RF rosuvastatin 40 mg tablet 40 mg PO DAILY Qty: 90 3RF albuterol sulfate 2.5 mg/0.5 mL solution for nebulization 5 mg inhalation Q6H PRN (Reason: shortness of breath or wheezing) Qty: 30 0RF albuterol sulfate 2.5 mg /3 mL (0.083 %) solution for nebulization 2.5 mg inhalation Q4-6H PRN (Reason: shortness of breath or wheezing) Qty: 75 0RF prednisone 10 mg tablets,dose pack See Rx Instructions .ROUTE .COMPLEX Qty: 21 0RF Rx Instructions: Take 60 mg p.o. x1, then 50 mg p.o. x1 day, then 40 mg p.o. x1 day, then 30 mg p.o. x1 day, then 20 mg p.o. x1 day, then 10 mg p.o. x1 day carvedilol 3.125 mg tablet 3.125 mg PO BID Follow up/Referrals: Gloria Jc MD [Primary Care Provider] - 2 Weeks Visit Report/Discharge Packet Stand Alone Forms: Patient Portal/API, Stroke Signs & Symptoms Discharge Data Primary Care Provider: Gloria Jc
[2023-01-18 08:56] VITALS: PULSE 82; RESP 20; O2SAT 95
[2023-01-18] MEDS: ALBUTEROL/IPRATROPIUM 3 ML AMPUL INH (08:56)
[2023-01-18 09:25] VITALS: BP 136/74; PULSE 81
[2023-01-18] MEDS: LOSARTAN 50 MG TABLET 100 MG PO (09:25)
[2023-01-18 09:26] VITALS: BP 136/74; PULSE 81
[2023-01-18] MEDS: carvediloL 3.125 MG TABLET PO (09:26)
[2023-01-18] MEDS: AMLODIPINE 5 MG TABLET PO (09:26)
--- NOTE | 2023-01-18 10:29 | PC.NURSE ---
Day shift: Discharge instructions gone over with patient - patient stated understanding and all questions answered. PIV d/c'ed prior to discharge. PCT escorted patient via wheelchair to exit where patient plans to drive herself home. All belongings with patient.
--- NOTE | 2023-01-18 12:39 | CM.DPC ---
DCP Discharge Home Per MD, pt is now on room air and completed a course of IV-Abx and medically stable to d/c home today and no identified barriers to discharge. SW met bedside with pt and she is all dressed in her street clothes and states she is waiting for d/c instructions and enjoying her cup of coffee and very agreeable to d/c home by her own vehicle in the parking lot and looking forward to getting fast food on the way home. Pt denies any d/c needs at this time. Plan: Patient to d/c home this morning via own POV and outpt f/u and no further SW needs at this time. LACHO Steel
== END 2023-01-18 10:42 | disposition home or self-care (01) | DRG 190 ==
LOC: ED 15:18 → AC 18:19
PROVIDERS: Admitting Provider Internal Medicine; Emergency Provider Emergency Medicine; PCP Internal Medicine Geriatric Medicine; Visit Provider Internal Medicine
DX: J44.1 Chronic obstructive pulmonary disease with (acute) exacerbation (principal); J96.01 Acute respiratory failure with hypoxia; I25.10 Atherosclerotic heart disease of native coronary artery without angina pectoris; I10 Essential (primary) hypertension; E78.2 Mixed hyperlipidemia; K21.9 Gastro-esophageal reflux disease without esophagitis; Z11.52 Encounter for screening for COVID-19; Z87.891 Personal history of nicotine dependence; Z79.52 Long term (current) use of systemic steroids
CPT/HCPCS: 0241U; 36415; 71045; 80048; 80053; 85025; 94640; 94760; 94762; 96374; 99285; J1650; J2930

== ENCOUNTER → 2023-03-06 11:23 | Outpatient (CLI) | payer MEDICARE, SELFPAY ==
[2023-01-16 18:32] VITALS: BMI 23.0
--- NOTE | 2023-03-06 | DI.MG.S_ITS ---
BILATERAL DIGITAL SCREENING MAMMOGRAM 3D/2D WITH CAD: 03/06/2023 CLINICAL: Routine screening. Family history of breast cancer. Comparison is made to exams dated: 03/23/2020 mammogram, 08/22/2018 mammogram, 08/21/2017 mammogram, and 07/09/2016 mammogram - [facility]. There are scattered areas of fibroglandular density in both breasts (category b / 25%-50% glandular tissue). Current study was also evaluated with a Computer Aided Detection (CAD) system. There are biopsy clips in the left breast. No significant masses, calcifications, or other findings are seen in either breast. There has been no significant interval change. IMPRESSION: NEGATIVE There is no mammographic evidence of malignancy. A 1 year screening mammogram is recommended. Based on the Tyrer Cuzick model (a risk assessment model) the patient's lifetime risk is 7.6% and her 10 year risk is 7.6%. According to the ACR, ACS, and NCCN guidelines, an annual breast MRI exam along with mammogram is recommended if the patient's lifetime risk is 20% or greater. This exam was interpreted at Station ID: [id number]. NOTE: For mammograms, a report in lay terms will be sent to the patient. Approximately 15% of breast malignancies will not be visualized mammographically. In the management of a palpable breast mass, a negative mammogram must not discourage biopsy of a clinically suspicious lesion. Electronically Signed By: Kyaw zamora/pasha:03/06/2023 13:01:36 letter sent: Normal Exam ACR BI-RADS Category 1: Negative [id number]
== END ==
PROVIDERS: PCP Internal Medicine Geriatric Medicine; Referring Provider Internal Medicine Geriatric Medicine; Visit Provider Internal Medicine Geriatric Medicine
DX: Z12.31 Encounter for screening mammogram for malignant neoplasm of breast (principal); Z80.3 Family history of malignant neoplasm of breast
CPT/HCPCS: 77063; 77067

== ENCOUNTER 2023-05-15 11:24 | Emergency (ER) | payer MEDICARE, SELFPAY ==
[2023-01-16 18:32] VITALS: BMI 23.0
[2023-05-15] VITALS (7 sets, daily range): BP systolic 137–183; BP diastolic 72–89; PULSE 88–108; RESP 16–26; TEMP 36.9; O2SAT 93–96; BMI 22.8
--- NOTE | 2023-05-15 11:35 | DI.RAD.S_ITS ---
PROCEDURE: XR CHEST 1V INDICATIONS: chest pain TECHNIQUE: One view of the chest was acquired. COMPARISON: [facility], CR, XR CHEST 1V, 01/16/2023, 16:31. FINDINGS: Surgical changes and devices: None. Lungs and pleura: Lungs are clear. No pleural effusions or pneumothorax. Mediastinum: Mediastinal contours appear normal. Heart size is normal. Bones and chest wall: No suspicious bony lesions. Overlying soft tissues appear unremarkable. IMPRESSION: No acute cardiopulmonary abnormality is seen. Dictated by: Nadege Zeng M.D. on 05/15/2023 at 12:00 Approved by: Nadege Zeng M.D. on 05/15/2023 at 12:00
--- NOTE | 2023-05-15 12:00 | ED_ITS ---
HPI - General Adult General Chief complaint: Dizziness Stated complaint: possible stroke sent by pcp Time Seen by Provider: 05/15/23 12:00 History of Present Illness HPI narrative: 78-year-old woman with a history of hypertension, coronary artery disease hyperlipidemia, COPD/asthma with hospitalization in January of 2023 for her COPD. She notes that she has been having episodes of intermittent vertigo over the last couple of weeks. Her was recently diagnosed with COVID and in the last 2-3 days she has been have increasing episodes of her vertigo. She notes that she has had a dry cough for about a week no fevers or chills no wheezing. She currently is on an albuterol inhaler and was recently started on what sounds like a b.i.d. steroid inhaler and has been doing well. She comes in today with the increasing vertigo concerned that she may have had a stroke. She has no other neurologic complaints. Related Data Home Medications Medication Instructions Recorded Confirmed aspirin 81 mg tablet,delayed 81 mg PO QDAY ##1 04/20/11 01/16/23 release carvedilol 3.125 mg tablet 3.125 mg PO BID 01/16/23 01/16/23 Previous Rx's Medication Instructions Recorded albuterol sulfate 2.5 mg/0.5 mL 5 mg inhalation Q6H PRN shortness 07/13/21 solution for nebulization of breath or wheezing #30 ea amlodipine 5 mg tablet 5 mg PO DAILY #90 tabs 12/01/21 ezetimibe 10 mg tablet 10 mg PO DAILY #90 tabs 12/01/21 losartan 100 mg tablet 100 mg PO DAILY #90 tabs 12/01/21 omeprazole 20 mg capsule,delayed 20 mg PO DAILY #90 caps 12/01/21 release potassium chloride 10 mEq 10 meq PO DAILY #90 tabs 12/01/21 tablet,extended release rosuvastatin 40 mg tablet 40 mg PO DAILY #90 tabs 12/01/21 albuterol sulfate 2.5 mg/3 mL 2.5 mg (3 mL) inhalation Q4-6H PRN 12/22/21 (0.083 %) solution for nebulization shortness of breath or wheezing #75 mL prednisone 20 mg tablet 20 mg PO DAILY #30 tabs 03/09/22 prednisone 10 mg tablets in a dose See Rx Instructions .Route 10/25/22 pack .COMPLEX #21 ea albuterol sulfate 90 mcg/actuation 2 inh inhalation Q4-6H PRN 01/14/23 aerosol inhaler shortness of breath or wheezing #8.5 grams Allergies Allergy/AdvReac Type Severity Reaction Status Date / Time adhesive Allergy Unknown Verified 10/25/22 12:33 moxifloxacin Allergy Unknown Verified 10/25/22 12:33 atorvastatin [ATORVASTATIN] AdvReac Intermediate MUSCLE Verified 10/25/22 12:33 WEAKNESS lisinopril [LISINOPRIL] AdvReac Intermediate COUGH Verified 10/25/22 12:33 Review of Systems Review of Systems Narrative: Pertinent positive and negative findings as per HPI Patient History Medical History Advanced directives, counseling/discussion Coronary artery disease Medicare annual wellness visit, initial Osteopenia GERD without esophagitis Mixed hyperlipidemia Essential hypertension HLD (hyperlipidemia) PVD (peripheral vascular disease) with claudication COPD (chronic obstructive pulmonary disease) Surgical History Status post delivery Social History household members: spouse and children Smoking Status: Former smoker alcohol intake: current Smoking Status: Former smoker alcohol intake frequency: a few times a month Substance Use Type: does not use Exam Initial Vital Signs Initial Vital Signs: Vital Signs Temperature 98.4 F 05/15/23 11:25 Pulse Rate 105 H 05/15/23 11:25 Respiratory Rate 16 05/15/23 11:25 Blood Pressure 137/86 05/15/23 11:25 Pulse Oximetry 95 05/15/23 11:25 Oxygen Delivery Method Room Air 05/15/23 11:25 General: Chronically ill-appearing but in no acute distress. Able to give a complete and coherent history. HEENT: Moist mucous membranes, normal sclera with reactive pupils, Neck: No cervical adenopathy Respiratory: Lungs are clear to auscultation, no wheezing no rales no rhonchi. Full and symmetrical air movement, speaking in full sentences and oxygen saturations are in the 96-98% range on room air Cardiac: Regular rate and rhythm no murmurs no bruits Abdomen: Soft, nontender, good bowel tones, no flank pain Skin: Warm and dry, no rashes Neurologic: Grossly neurologically intact with no obvious asymmetries or abnormalities Extremities: No trauma, well perfused Psych: Cooperative, appropriate insight and affect Course Orders Ordered: ED Orders 05/15/23 11:21 Complete Blood Count AUTO DIFF Stat Comprehensive Metabolic Panel Stat Lipase Stat Magnesium Stat PTT Partial Thromboplastin Familia Stat Prothrombin Time INR Stat Troponin & CK Cardiac Panel Stat 05/15/23 11:33 Covid-19 + FLU A/B + RSV - PCR Stat 05/15/23 11:35 XR chest 1V Stat EKG-12 Lead Stat Vital Signs Vital signs: Vital Signs - 8 hr 05/15/23 11:25 Temperature 98.4 F Pulse Rate 105 H Respiratory Rate 16 Blood Pressure 137/86 Pulse Oximetry 95 Oxygen Delivery Method Room Air Medical Decision Making Lab Data 05/15/23 11:21 05/15/23 11:21 Labs: Lab Results 05/15/23 05/15/23 Range/Units 11:21 11:33 WBC 7.3 (4.5-11.0) X10^3/uL RBC 4.90 (4.0-5.2) X10^6/uL Hgb 13.6 (12.0-16.0) g/dL Hct 41.4 (36-46) % MCV 84.4 (80-100) fL MCH 27.8 (26-34) PG MCHC 33.0 (30-36) % RDW 12.8 (11.6-14.8) % Plt Count 433 H (150-400) X10^3/uL Neut % (Auto) 65.5 (50-75) % Lymph % (Auto) 19.9 L (25-40) % [place] % (Auto) 12.0 (3-14) % Eos % (Auto) 1.4 L (2-4) % Baso % (Auto) 1.2 (0-2) % Neut # (Auto) 4800 (9480-6767) /uL Lymph # (Auto) 1500 (7701-5566) /uL [place] # (Auto) 900 (0-900) /uL Eos # (Auto) 100 (0-450) /uL Baso # (Auto) 100 (0-100) /uL PT 11.2 (9.4-12.5) SECONDS INR 1.0 (0.9-1.3) APTT 33 (25.1-36.5) SECONDS Sodium 138 (137-145) mmol/L Potassium 3.8 (3.4-5.1) mmol/L Chloride 104 (98-107) mmol/L Carbon Dioxide 26 (22-32) mmol/L BUN 12 (7-17) mg/dL Creatinine 0.92 (0.52-1.04) mg/dL Estimated GFR > 60 (>60) mL/min BUN/Creatinine Ratio 13.0 (6-22) Glucose 91 (80-110) mg/dL Calcium 9.5 (8.4-10.2) mg/dL Magnesium 1.3 L (1.6-2.3) mg/dL Total Bilirubin 0.9 (0.2-1.3) mg/dL AST 31 (14-36) IU/L ALT 19 (<35) IU/L Alkaline Phosphatase 94 (38-126) U/L Total Creatine Kinase 62 (30-135) U/L Troponin I < 0.012 (0.01-0.034) ng/mL Total Protein 8.0 (6.3-8.2) g/dL Albumin 4.2 (3.5-5.0) g/dL Globulin 3.8 (1.7-4.1) g/dL Albumin/Globulin Ratio 1.1 (1.0-2.8) Lipase 98 (23-300) U/L SARS-CoV-2 (PCR) Positive H (Negative) Influenza A (RT-PCR) Flu a negative (NEGATIVE) Influenza B (RT-PCR) Flu b negative (NEGATIVE) RSV (PCR) Negative (Negative) MDM Narrative Medical decision making narrative: CC: Vertigo Complicating co-morbidities: Hypertension, hyperlipidemia, peripheral vascular disease, COPD Data collected from: patient Social determinants of health that may influence the patients condition: Patient's was just diagnosed with COVID Medical records reviewed: Discharge summary from the hospital January of 2023 with a diagnosis of hypoxic respiratory failure Differential considered: COVID, vertigo, ear infection, respiratory failure, stroke conceivably is within the differential but at this point is less likely Exam documented above, pertinent findings include: On exam she actually has no wheezing at all, she is easily able to speak in full sentences no lower extremity edema, no nystagmus. She notes that the vertigo is intermittent and only lasts minutes. Neurologic exam is otherwise entirely on remarkable with an NIH score of 0 Lab Test results independently reviewed as above. Pertinent findings: CBC is unremarkable Chemistries are reassuring with magnesium being minimally low Troponin is unremarkable No evidence of pancreatitis Independently reviewed EKG: Sinus rhythm at a rate of 91. Normal intervals, normal axis no acute ischemic changes Imaging studies independently reviewed: Chest x-ray is actually fairly reassuring. She has not hyperinflated there are no infiltrates appreciated in cardiac silhouette is unremarkable Discussion: 78-year-old woman with episodes of vertigo that are occasionally quite severe but always self-limited. Recent increased cough no the last 2 days has had more episodes of vertigo. She is positive for COVID. She is not hypoxic she has not wheezing, there is no evidence of significant respiratory distress or acute coronary syndrome. As she is oxygenating appropriately, has inhalers including an inhaled steroid home I believe she is safe for discharge. Reviewed reasons to return particularly for hypoxia persistent cough in light of her COVID diagnosis today. She is safe for discharge Discharge Plan Departure Patient Disposition: Home Clinical Impression: Vertigo, COVID Instructions: DI for Vertigo, COVID-19 Activity Restrictions/Additional Instructions: Thank you for coming in today Your exam is actually very reassuring. I am not seeing any suggestion of stroke which is great With your limited episodes of dizziness, I do not have a complete explanation. I suspect that it has gotten worse in the last couple of days because you do have COVID. Your COVID infection seems to be fairly mild at this point particularly as you have had a cough for a week. You are not wheezing, there is no sign of COVID pneumonia, needle not need steroids or any change to your asthma medications. There was no indication for antibiotics At this time making sure that your well hydrated and given your body a chance to get past the COVID is all that is recommended. If you do have an episode of acute dizziness, please make sure that you sit down so that you do not fall. If you find that those episodes of dizziness are getting worse or you have new issues, please feel free to return to the ER Prescriptions: No Action aspirin 81 MG tablet,delayed release (DR/EC) 81 mg PO QDAY Qty: 1 prednisone 20 mg tablet 20 mg PO DAILY Qty: 30 3RF albuterol sulfate 90 mcg/actuation HFA aerosol inhaler 2 inh inhalation Q4-6H PRN (Reason: shortness of breath or wheezing) Qty: 8.5 0RF Rx Instructions: Patient is overdue for annual appt with Dr. Mena. Please call to schedule an appointment. Thank you! amlodipine 5 mg tablet 5 mg PO DAILY Qty: 90 3RF ezetimibe 10 mg tablet 10 mg PO DAILY Qty: 90 3RF losartan 100 mg tablet 100 mg PO DAILY Qty: 90 3RF omeprazole 20 mg capsule,delayed release(DR/EC) 20 mg PO DAILY Qty: 90 3RF potassium chloride 10 mEq tablet extended release 10 meq PO DAILY Qty: 90 3RF rosuvastatin 40 mg tablet 40 mg PO DAILY Qty: 90 3RF albuterol sulfate 2.5 mg/0.5 mL solution for nebulization 5 mg inhalation Q6H PRN (Reason: shortness of breath or wheezing) Qty: 30 0RF albuterol sulfate 2.5 mg /3 mL (0.083 %) solution for nebulization 2.5 mg inhalation Q4-6H PRN (Reason: shortness of breath or wheezing) Qty: 75 0RF prednisone 10 mg tablets,dose pack See Rx Instructions .ROUTE .COMPLEX Qty: 21 0RF Rx Instructions: Take 60 mg p.o. x1, then 50 mg p.o. x1 day, then 40 mg p.o. x1 day, then 30 mg p.o. x1 day, then 20 mg p.o. x1 day, then 10 mg p.o. x1 day carvedilol 3.125 mg tablet 3.125 mg PO BID Referrals: Gloria Jc MD [Primary Care Provider] - Stand Alone Forms: Patient Portal/API
[2023-05-15 12:19] LABS: Influenza A - CEPHEID Flu A NEGATIVE (NEGATIVE); Influenza B - CEPHEID Flu B NEGATIVE (NEGATIVE); Respiratory Syncytial Virus Negative (Negative)
[2023-05-15 12:20] LABS: Add Manual Diff / Slide Review NO; Basophils Absolute Auto 100 /uL (0-100); Basophils Percent Auto 1.2 % (0-2); Eosinophils Absolute Auto 100 /uL (0-450); Eosinophils Percent Auto 1.4 % (2-4); Hematocrit 41.4 % (36-46); Hemoglobin 13.6 g/dL (12.0-16.0); Lymphocytes Absolute Auto 1500 /uL (1100-4500); Lymphocytes Percent Auto 19.9 % (25-40); Mean Corpuscular Hemoglobin 27.8 PG (26-34); Mean Corpuscular Volume 84.4 fL (80-100); Monocytes Absolute Auto 900 /uL (0-900); Neutrophils Absolute Auto 4800 /uL (1500-7000); Neutrophils Percent Auto 65.5 % (50-75); Platelet Count 433 X10^3/uL (150-400); Red Cell Distribution Width 12.8 % (11.6-14.8); White Blood Cell Count 7.3 X10^3/uL (4.5-11.0)
[2023-05-15 12:21] LABS: COVID-19 CEPHEID 4-PLEX PCR POSITIVE (Negative)
[2023-05-15 12:30] LABS: Prothrombin Time 11.2 SECONDS (9.4-12.5)
[2023-05-15 12:33] LABS: PTT Partial Thromboplastin Tim 33 SECONDS (25.1-36.5)
[2023-05-15 12:35] LABS: Alanine Aminotransferase 19 IU/L (<35); Albumin 4.2 g/dL (3.5-5.0); Albumin Globulin Ratio 1.1 (1.0-2.8); Alkaline Phosphatase 94 U/L (38-126); Aspartate Aminotransferase 31 IU/L (14-36); Bilirubin Total 0.9 mg/dL (0.2-1.3); Blood Urea Nitrogen 12 mg/dL (7-17); Calcium 9.5 mg/dL (8.4-10.2); Carbon Dioxide 26 mmol/L (22-32); Chloride 104 mmol/L (98-107); Creatine Kinase 62 U/L (30-135); Estimated Glomerular Filt Rate > 60 mL/min (>60); Globulin 3.8 g/dL (1.7-4.1); Glucose 91 mg/dL (80-110); HEMOLYSIS < 15 (0-50); Lipase 98 U/L (23-300); Magnesium 1.3 mg/dL (1.6-2.3); Potassium 3.8 mmol/L (3.4-5.1); Sodium 138 mmol/L (137-145)
[2023-05-15 12:46] LABS: Troponin I < 0.012 ng/mL (0.01-0.034)
== END 2023-05-15 14:06 | disposition home or self-care (01) ==
PROVIDERS: Emergency Provider Emergency Medicine; PCP Internal Medicine Geriatric Medicine
DX: U07.1 COVID-19 (principal); R42 Dizziness and giddiness
CPT/HCPCS: 0241U; 36415; 71045; 80053; 82550; 83690; 83735; 84484; 85025; 85610; 85730; 93005; 99284

== ENCOUNTER 2023-10-25 17:38 | Emergency (ER) | payer MEDICARE, SELFPAY ==
[2023-01-16 18:32] VITALS: BMI 23.0
[2023-10-25] VITALS (13 sets, daily range): BP systolic 135–168; BP diastolic 65–87; PULSE 95–119; RESP 16–30; TEMP 37; O2SAT 90–93; BMI 21.9
--- NOTE | 2023-10-25 18:09 | DI.RAD.S_ITS ---
PROCEDURE: XR CHEST 1V INDICATIONS: Shortness of breath TECHNIQUE: One view of the chest was acquired. COMPARISON: Multiple priors, the most recent dated 05/15/2023. FINDINGS: Surgical changes and devices: None. Lungs and pleura: Lungs are clear. No pleural effusions or pneumothorax. Mediastinum: Mediastinal contours appear normal. Heart size is normal. Bones and chest wall: No suspicious bony lesions. Overlying soft tissues appear unremarkable. IMPRESSION: No acute cardiopulmonary abnormality is seen. Dictated by: Deborah Eric M.D. on 10/25/2023 at 17:41 Approved by: Deborah Eric M.D. on 10/25/2023 at 17:43
--- NOTE | 2023-10-25 18:09 | EKG_ITS ---
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
[2023-10-25 18:47] LABS: Add Manual Diff / Slide Review NO; Basophils Absolute Auto 0 /uL (0-100); Basophils Percent Auto 0.2 % (0-2); Eosinophils Absolute Auto 0 /uL (0-450); Eosinophils Percent Auto 0.1 % (2-4); Hematocrit 42.2 % (36-46); Hemoglobin 13.8 g/dL (12.0-16.0); Lymphocytes Absolute Auto 600 /uL (1100-4500); Lymphocytes Percent Auto 13.1 % (25-40); Mean Corpuscular HGB Conc 32.8 % (30-36); Mean Corpuscular Hemoglobin 28.2 PG (26-34); Monocytes Absolute Auto 200 /uL (0-900); Monocytes Percent Auto 4.8 % (3-14); Neutrophils Absolute Auto 3700 /uL (1500-7000); Neutrophils Percent Auto 81.8 % (50-75); Platelet Count 367 X10^3/uL (150-400); Red Blood Cell Count 4.91 X10^6/uL (4.0-5.2); Red Cell Distribution Width 13.6 % (11.6-14.8); White Blood Cell Count 4.5 X10^3/uL (4.5-11.0)
[2023-10-25 18:50] LABS: Prothrombin Time 11.4 SECONDS (9.4-12.5)
--- NOTE | 2023-10-25 18:52 | ED.SOB ---
HPI - SOB/Dyspnea General Chief Complaint: Shortness of Breath/Dyspnea Stated Complaint: SoB, Dizzyness Time Seen by Provider: 10/25/23 18:46 Source: patient Mode of arrival: Ambulatory Limitations: no limitations History of Present Illness HPI Narrative: 78-year-old female with history of COPD/asthma, uses home SVN treatments, no home oxygen, has had 2 weeks of increasing shortness of breath, especially worse the last couple of days, dry cough, some dizziness. No focal weakness to face arm or leg. No falls or injuries. No fevers or chills. She has her medications using at home, but they do not seem to be helping. She has not taking any oral steroid at this time. Denies history of known heart problems, heart failure, heart attacks, denies chest pain, denies swelling to legs, denies leg pain. Related Data Home Medications Medication Instructions Recorded Confirmed aspirin 81 mg tablet,delayed 81 mg PO QDAY ##1 04/20/11 01/16/23 release carvedilol 3.125 mg tablet 3.125 mg PO BID 01/16/23 01/16/23 Previous Rx's Medication Instructions Recorded albuterol sulfate 2.5 mg/0.5 mL 5 mg inhalation Q6H PRN shortness 07/13/21 solution for nebulization of breath or wheezing #30 ea amlodipine 5 mg tablet 5 mg PO DAILY #90 tabs 12/01/21 ezetimibe 10 mg tablet 10 mg PO DAILY #90 tabs 12/01/21 losartan 100 mg tablet 100 mg PO DAILY #90 tabs 12/01/21 omeprazole 20 mg capsule,delayed 20 mg PO DAILY #90 caps 12/01/21 release potassium chloride 10 mEq 10 meq PO DAILY #90 tabs 12/01/21 tablet,extended release rosuvastatin 40 mg tablet 40 mg PO DAILY #90 tabs 12/01/21 albuterol sulfate 2.5 mg/3 mL 2.5 mg (3 mL) inhalation Q4-6H PRN 12/22/21 (0.083 %) solution for nebulization shortness of breath or wheezing #75 mL prednisone 20 mg tablet 20 mg PO DAILY #30 tabs 03/09/22 albuterol sulfate 90 mcg/actuation 2 inh inhalation Q4-6H PRN 01/14/23 aerosol inhaler shortness of breath or wheezing #8.5 grams prednisone 20 mg tablet 40 mg (2 x 20 mg) PO DAILY 5 days 10/25/23 #10 tabs Allergies Allergy/AdvReac Type Severity Reaction Status Date / Time adhesive Allergy Unknown Verified 10/25/22 12:33 moxifloxacin Allergy Unknown Verified 10/25/22 12:33 atorvastatin [ATORVASTATIN] AdvReac Intermediate MUSCLE Verified 10/25/22 12:33 WEAKNESS lisinopril [LISINOPRIL] AdvReac Intermediate COUGH Verified 10/25/22 12:33 Review of Systems Review of Systems Narrative: See HPI Patient History Medical History Advanced directives, counseling/discussion Coronary artery disease Medicare annual wellness visit, initial Osteopenia GERD without esophagitis Mixed hyperlipidemia Essential hypertension HLD (hyperlipidemia) PVD (peripheral vascular disease) with claudication COPD (chronic obstructive pulmonary disease) Surgical History Status post delivery Social History household members: spouse and children Smoking Status: Former smoker alcohol intake: current Smoking Status: Former smoker alcohol intake frequency: a few times a month Substance Use Type: does not use Exam Narrative Exam Narrative: GENERAL: Well-developed patient, in mild distress. HEAD: Atraumatic. Normocephalic. EYES: Pupils equal round and reactive. Extraocular motions intact. No scleral icterus. No injection or drainage. ENT: Nose without bleeding, purulent drainage. Throat without erythema, tonsillar hypertrophy or exudate. Airway patent. NECK: Trachea midline. Non tender CARDIOVASCULAR: Fast rate with regular rhythm, no obvious murmurs, gallops, or rubs. RESPIRATORY: Clear to auscultation. Breath sounds equal bilaterally. Speaking in full sentences, no retractions, but some wheeze end-expiration noted GASTROINTESTINAL: Abdomen soft, non-tender, nondistended. EXTREMITIES: No edema or joint tenderness. BACK: Nontender without deformity or crepitance. No flank tenderness. NEURO: AOx3. SKIN: No rash or erythema of visible areas Initial Vital Signs Initial Vital Signs: Vital Signs Temperature 98.6 F 10/25/23 17:42 Pulse Rate 119 H 10/25/23 17:42 Respiratory Rate 20 10/25/23 17:42 Blood Pressure 140/69 10/25/23 17:42 Pulse Oximetry 92 10/25/23 17:42 Oxygen Delivery Method Room Air 10/25/23 17:42 Course Orders Ordered: ED Orders 10/25/23 18:09 XR chest 1V Stat EKG-12 Lead Stat Measure peak expiratory flow ONCE RT Consult Eval and Treat NOW 10/25/23 18:35 Complete Blood Count AUTO DIFF Stat Comprehensive Metabolic Panel Stat Lactate (Lactic Acid) Stat NT-proBNP (BNP-Adult 18+) Stat Prothrombin Time INR Stat Respiratory Panel (Film Array) Stat Troponin I Stat Discontinued Medications Albuterol/Ipratropium (Albuterol/Ipratropium 3 Ml Ampul) 3 ml INH NOW ONE Stop: 10/25/23 18:57 Last Admin: 10/25/23 19:17 Dose: 3 ml Documented By: YE Methylprednisolone (Methylprednisolone 125 Mg/2 Ml Vial) 125 mg IV NOW ONE Stop: 10/25/23 18:57 Last Admin: 10/25/23 19:04 Dose: 125 mg Documented By: ANTHONY Vital Signs Vital signs: Vital Signs - 8 hr 10/25/23 17:42 10/25/23 18:01 10/25/23 18:13 Temperature 98.6 F Pulse Rate 119 H 115 H Respiratory Rate 20 20 Blood Pressure 140/69 149/67 H 137/78 Pulse Oximetry 92 91 Oxygen Delivery Method Room Air Room Air 10/25/23 18:13 10/25/23 18:15 10/25/23 18:30 Temperature Pulse Rate 115 H 109 H Respiratory Rate 30 H Blood Pressure 147/78 H Pulse Oximetry 91 92 Oxygen Delivery Method 10/25/23 18:30 10/25/23 18:45 10/25/23 19:01 Temperature Pulse Rate 108 H 107 H 103 H Respiratory Rate 28 H 29 H 27 H Blood Pressure 135/65 Pulse Oximetry 91 91 91 Oxygen Delivery Method 10/25/23 19:18 10/25/23 19:30 10/25/23 20:04 Temperature Pulse Rate 107 H 101 H 105 H Respiratory Rate 16 25 H 24 Blood Pressure 146/80 H 168/79 H Pulse Oximetry 90 L 90 L 93 Oxygen Delivery Method Room Air 10/25/23 20:30 10/25/23 20:52 10/25/23 21:00 Temperature Pulse Rate 95 H 103 H 103 H Respiratory Rate 24 22 29 H Blood Pressure 147/75 H 158/82 H 164/87 H Pulse Oximetry 90 L 92 91 Oxygen Delivery Method Room Air Room Air MDM - SOB/Dyspnea Medical Records Medical records narrative: Lab Data Attestation: I reviewed the patient's lab results. 10/25/23 18:35 10/25/23 18:35 Labs: Lab Results 10/25/23 Range/Units 18:35 WBC 4.5 (4.5-11.0) X10^3/uL RBC 4.91 (4.0-5.2) X10^6/uL Hgb 13.8 (12.0-16.0) g/dL Hct 42.2 (36-46) % MCV 86.0 (80-100) fL MCH 28.2 (26-34) PG MCHC 32.8 (30-36) % RDW 13.6 (11.6-14.8) % Plt Count 367 (150-400) X10^3/uL Neut % (Auto) 81.8 H (50-75) % Lymph % (Auto) 13.1 L (25-40) % [place] % (Auto) 4.8 (3-14) % Eos % (Auto) 0.1 L (2-4) % Baso % (Auto) 0.2 (0-2) % Neut # (Auto) 3700 (8653-0607) /uL Lymph # (Auto) 600 L (5280-5392) /uL [place] # (Auto) 200 (0-900) /uL Eos # (Auto) 0 (0-450) /uL Baso # (Auto) 0 (0-100) /uL PT 11.4 (9.4-12.5) SECONDS INR 1.0 (0.9-1.3) Sodium 135 L (137-145) mmol/L Potassium 4.5 (3.4-5.1) mmol/L Chloride 101 (98-107) mmol/L Carbon Dioxide 25 (22-32) mmol/L BUN 14 (7-17) mg/dL Creatinine 0.80 (0.52-1.04) mg/dL Estimated GFR > 60 (>60) mL/min BUN/Creatinine Ratio 17.5 (6-22) Glucose 160 H (80-110) mg/dL Lactate 2.0 (0.7-2.1) mmol/L Calcium 9.5 (8.4-10.2) mg/dL Total Bilirubin 0.7 (0.2-1.3) mg/dL AST 50 H (14-36) IU/L ALT 33 (<35) IU/L Alkaline Phosphatase 104 (38-126) U/L Troponin I < 0.012 (0.01-0.034) ng/mL NT-Pro-B Natriuret Pep 671 H (<450) pg/mL Total Protein 7.5 (6.3-8.2) g/dL Albumin 4.3 (3.5-5.0) g/dL Globulin 3.2 (1.7-4.1) g/dL Albumin/Globulin Ratio 1.3 (1.0-2.8) Chlamy pneumoniae PCR Not detected (Not Detect) Adenovirus (PCR) Not detected (Not Detect) B.parapertussis DNA PCR Not detected (Not Detecte) Coronavirus OC43 (PCR) Not detected (Not Detect) Coronavirus HKU1 (PCR) Not detected (Not Detect) Coronavirus 229E (PCR) Not detected (Not Detect) SARS-CoV-2 (PCR) Not detected (Not Detecte) Coronavirus NL63 (PCR) Not detected (Not Detect) Human Metapneumovir PCR Not detected (Not Detect) Influenza Type A (PCR) Not detected (Not Detect) Influenza Type B (PCR) Not detected (Not Detect) M. pneumoniae (PCR) Not detected (Not Detect) Parainfluenza 1 (PCR) Not detected (Not Detect) Parainfluenza 2 (PCR) Not detected (Not Detect) Parainfluenza 3 (PCR) Not detected (Not Detect) Parainfluenza 4 (PCR) Not detected (Not Detect) RSV (PCR) Not detected (Not Detect) Entero/Rhino (PCR) Not detected (Not Detect) Imaging Data Chest x-ray: Radiologist's Impression: [address] [id number] XRay Report Signed Patient: Debi Bueno MR#: [id number] : 1945 Acct:[id number] Age/Sex: 78 / F Date of Service: 10/25/23 Loc: ED Accession Number: [id number] Procedure: XR chest 1V Ordering Provider: Robson Chan MD PROCEDURE: XR CHEST 1V INDICATIONS: Shortness of breath TECHNIQUE: One view of the chest was acquired. COMPARISON: Multiple priors, the most recent dated 05/15/2023. FINDINGS: Surgical changes and devices: None. Lungs and pleura: Lungs are clear. No pleural effusions or pneumothorax. Mediastinum: Mediastinal contours appear normal. Heart size is normal. Bones and chest wall: No suspicious bony lesions. Overlying soft tissues appear unremarkable. IMPRESSION: No acute cardiopulmonary abnormality is seen. Dictated by: Deborah Eric M.D. on 10/25/2023 at 17:41 Approved by: Deborah Eric M.D. on 10/25/2023 at 17:43 ECG Data Attestation: I personally reviewed and interpreted this ECG as follows: Interpretation: Sinus tachycardia with rate of 106, no obvious ST segment elevation or depression changes. ID [id number], QRS 80, QTC 464. MDM Narrative Medical decision making narrative: 78-year-old with history of COPD, increasing shortness breath over the last 2 weeks, further increased last couple of days, dry cough, some wheeze at end expiration, no oxygen requirement, no respiratory distress, however dyspnea over baseline, IV Solu-Medrol, SVN DuoNeb. Chest x-ray unremarkable, EKG without obvious ischemic changes, lab screens unremarkable. Patient had sinus tachycardia on arrival, transiently increased with SVN, then improved. She was able to tolerate ambulation without desaturation or significant increase in dyspnea. Respiratory panel negative. She felt a better and wanted to go home, discharge per patient preference, prescription sent for prednisone oral pulse few days' supply to her pharmacy. Discharged home with family. Follow up with PCP early next week advised. Return precautions discussed Critical Care Time Critical Care Time Critical Care Time: Yes Total Critical Care Time: 31 Attestation: The high probability of a clinically significant, sudden or life threatening deterioration of the [cardiopulmonary] system(s) required my full and direct attention, intervention and personal management. The aggregate critical care time was [31] minutes. This time is in addition to time spent performing reported procedures but includes the following: [x] Data Review and interpretation [x] Patient assessment and monitoring of vital signs [x] Documentation [x] Medication orders and management Discharge Plan Departure Patient Disposition: Home Clinical Impression: COPD (chronic obstructive pulmonary disease) Activity Restrictions/Additional Instructions: History of COPD, recent couple of weeks increasing shortness of breath especially last couple of days, wheezing on end expiration noted on examination, no oxygen requirement, some component of dizziness, increased heart rate initially noted, breathing treatment given, IV steroid given, chest x-ray was unremarkable, lab testing was unremarkable, respiratory panel swab was negative for COVID and influenza and other pathogens tested. Additional steroid sent by prescription to your pharmacy to take for the next few days. Use your breathing treatment medicines at home. Recheck symptoms with your regular doctor early next week on Saturday. Return to this/nearest emergency department for any change worsening symptoms or any concerns prior Prescriptions: New prednisone 20 mg tablet 40 mg PO DAILY 5 Days Qty: 10 0RF No Action aspirin 81 MG tablet,delayed release (DR/EC) 81 mg PO QDAY Qty: 1 prednisone 20 mg tablet 20 mg PO DAILY Qty: 30 3RF albuterol sulfate 90 mcg/actuation HFA aerosol inhaler 2 inh inhalation Q4-6H PRN (Reason: shortness of breath or wheezing) Qty: 8.5 0RF Rx Instructions: Patient is overdue for annual appt with Dr. Mena. Please call to schedule an appointment. Thank you! amlodipine 5 mg tablet 5 mg PO DAILY Qty: 90 3RF ezetimibe 10 mg tablet 10 mg PO DAILY Qty: 90 3RF losartan 100 mg tablet 100 mg PO DAILY Qty: 90 3RF omeprazole 20 mg capsule,delayed release(DR/EC) 20 mg PO DAILY Qty: 90 3RF potassium chloride 10 mEq tablet extended release 10 meq PO DAILY Qty: 90 3RF rosuvastatin 40 mg tablet 40 mg PO DAILY Qty: 90 3RF albuterol sulfate 2.5 mg/0.5 mL solution for nebulization 5 mg inhalation Q6H PRN (Reason: shortness of breath or wheezing) Qty: 30 0RF albuterol sulfate 2.5 mg /3 mL (0.083 %) solution for nebulization 2.5 mg inhalation Q4-6H PRN (Reason: shortness of breath or wheezing) Qty: 75 0RF carvedilol 3.125 mg tablet 3.125 mg PO BID Referrals: Gloria Jc MD [Primary Care Provider] - Stand Alone Forms: Patient Portal/API
[2023-10-25 18:57] LABS: Alanine Aminotransferase 33 IU/L (<35); Albumin 4.3 g/dL (3.5-5.0); Albumin Globulin Ratio 1.3 (1.0-2.8); Alkaline Phosphatase 104 U/L (38-126); Aspartate Aminotransferase 50 IU/L (14-36); BUN Creatinine Ratio 17.5 (6-22); Bilirubin Total 0.7 mg/dL (0.2-1.3); Blood Urea Nitrogen 14 mg/dL (7-17); Calcium 9.5 mg/dL (8.4-10.2); Carbon Dioxide 25 mmol/L (22-32); Chloride 101 mmol/L (98-107); Estimated Glomerular Filt Rate > 60 mL/min (>60); Globulin 3.2 g/dL (1.7-4.1); Glucose 160 mg/dL (80-110); HEMOLYSIS < 15 (0-50); Potassium 4.5 mmol/L (3.4-5.1); Sodium 135 mmol/L (137-145); Total Protein 7.5 g/dL (6.3-8.2)
[2023-10-25] MEDS: methylPREDNISolone 125 MG/2 ML VIAL IV (19:04)
[2023-10-25 19:09] LABS: NT-proBNP (BNP-Adult 18+) 671 pg/mL (<450); Troponin I < 0.012 ng/mL (0.01-0.034)
[2023-10-25] MEDS: ALBUTEROL/IPRATROPIUM 3 ML AMPUL INH (19:17)
[2023-10-25 19:32] LABS: Adenovirus Not Detected (Not Detect); B. parapertussis Not Detected (Not Detecte); Bordetella pertussis Not Detected (Not Detect); Chlamydophila pneumoniae Not Detected (Not Detect); Coronavirus 229E Not Detected (Not Detect); Coronavirus HKU1 Not Detected (Not Detect); Coronavirus NL 63 Not Detected (Not Detect); Coronavirus OC43 Not Detected (Not Detect); Human Metapneumovirus Not Detected (Not Detect); Human Rhinovirus/Enterovirus Not Detected (Not Detect); Influenza A Not Detected (Not Detect); Influenza B Not Detected (Not Detect); Mycoplasma pneumoniae Not Detected (Not Detect); Parainfluenza Virus 1 Not Detected (Not Detect); Parainfluenza Virus 2 Not Detected (Not Detect); Parainfluenza Virus 3 Not Detected (Not Detect); Parainfluenza Virus 4 Not Detected (Not Detect); Respiratory Syncytial Virus Not Detected (Not Detect); SARS- CoV-2 Not Detected (Not Detecte)
--- NOTE | 2023-10-25 21:20 | CM.MNRNOTE ---
Pt walked arounf unit SPO2 ranged from 90-93% on room air. Pt denied SOB. Pt drank a glass of water without problem.
== END 2023-10-25 21:20 | disposition home or self-care (01) ==
PROVIDERS: Emergency Provider Emergency Medicine; PCP Internal Medicine Geriatric Medicine
DX: J44.1 Chronic obstructive pulmonary disease with (acute) exacerbation (principal); R06.02 Shortness of breath; I10 Essential (primary) hypertension; Z11.52 Encounter for screening for COVID-19
CPT/HCPCS: 36415; 71045; 80053; 83605; 83880; 84484; 85025; 85610; 87633; 93005; 93010; 94640; 96374; 99284; J2919

== ENCOUNTER → 2024-03-12 13:47 | Outpatient (CLI) | payer MEDICARE, SELFPAY ==
[2023-01-16 18:32] VITALS: BMI 23.0
--- NOTE | 2024-03-12 13:48 | DI.MG.S_ITS ---
BILATERAL DIGITAL SCREENING MAMMOGRAM 3D/2D WITH CAD: 03/12/2024 CLINICAL: Routine screening. Family history of breast cancer. Comparison is made to exams dated: 03/06/2023 mammogram, 03/23/2020 mammogram, and 08/22/2018 mammogram - [facility]. There are scattered areas of fibroglandular density (category b / 25%-50% glandular tissue). Current study was also evaluated with a Computer Aided Detection (CAD) system. There are biopsy clips in the left breast. No significant masses, calcifications, or other findings are seen in either breast. There has been no significant interval change. IMPRESSION: NEGATIVE There is no mammographic evidence of malignancy. A 1 year screening mammogram is recommended. Based on the Tyrer Cuzick model (a risk assessment model) the patient's lifetime risk is 7.0% and her 10 year risk is 0.0%. According to the ACR, ACS, and NCCN guidelines, an annual breast MRI exam along with mammogram is recommended if the patient's lifetime risk is 20% or greater. This exam was interpreted at Station ID: [id number]. NOTE: For mammograms, a report in lay terms will be sent to the patient. Approximately 15% of breast malignancies will not be visualized mammographically. In the management of a palpable breast mass, a negative mammogram must not discourage biopsy of a clinically suspicious lesion. Electronically Signed By: Mirian emanuel/pasha:03/12/2024 16:26:33 letter sent: Normal Exam ACR BI-RADS Category 1: Negative
== END ==
PROVIDERS: PCP Internal Medicine Geriatric Medicine; Referring Provider Internal Medicine Geriatric Medicine; Visit Provider Internal Medicine Geriatric Medicine
DX: Z12.31 Encounter for screening mammogram for malignant neoplasm of breast (principal); Z80.3 Family history of malignant neoplasm of breast
CPT/HCPCS: 77063; 77067

== ENCOUNTER → 2024-12-08 14:10 | Outpatient (CLI) | payer MEDICARE, SELFPAY ==
[2023-01-16 18:32] VITALS: BMI 23.0
[2024-12-08 15:23] LABS: Vitamin D 25 Hydroxy (D3) < 12.8 ng/mL (30.0-100.0)
[2024-12-08 15:24] LABS: Albumin 4.4 g/dL (3.5-5.0); Blood Urea Nitrogen 13 mg/dL (7-17); Calcium 10.1 mg/dL (8.4-10.2); Carbon Dioxide 29 mmol/L (22-32); Chloride 98 mmol/L (98-107); Estimated Glomerular Filt Rate > 60 mL/min (>60); Glucose 135 mg/dL (70-99); HEMOLYSIS < 15 (0-50); Phosphorous 3.7 mg/dL (2.8-4.1); Potassium 4.7 mmol/L (3.4-5.1); Sodium 134 mmol/L (137-145)
[2024-12-08 15:25] LABS: Free T4, Direct Thyroxine 1.39 ng/dL (0.78-2.19)
[2024-12-08 15:39] LABS: Thyroid Stimulating Hormone 1.27 uIU/mL (0.47-4.68)
[2024-12-11 13:10] LABS: Calcium 10.0 mg/dL (8.7-10.3); Parathyroid Hormone, Intact 57 pg/mL (15-65)
== END ==
PROVIDERS: PCP Internal Medicine Geriatric Medicine; Referring Provider Student in an Organized Health Care Education/Training Program; Visit Provider Student in an Organized Health Care Education/Training Program
DX: M81.0 Age-related osteoporosis without current pathological fracture (principal); M81.8 Other osteoporosis without current pathological fracture
CPT/HCPCS: 36415; 80069; 82306; 82310; 83970; 84439; 84443

== ENCOUNTER 2024-12-08 14:43 | Emergency (ER) | payer MEDICARE, SELFPAY ==
[2023-01-16 18:32] VITALS: BMI 23.0
[2024-12-08 15:07] VITALS: BP 153/79; PULSE 95; RESP 16; TEMP 37.1; O2SAT 93; BMI 21.6
--- NOTE | 2024-12-08 15:31 | ED.SKABFB ---
HPI - Skin/Abscess/Foreign Bdy General Chief complaint: Skin/Abscess/Foreign Body Stated complaint: cellulitis lt leg, dr sent over Time Seen by Provider: 12/08/24 15:31 Source: patient Mode of arrival: Ambulatory Limitations: no limitations History of Present Illness HPI narrative: Patient is a 79-year-old female with past medical history of hypertension, asthma, comes into the ED from home for evaluation of possible skin infection, she states that she was seen by a [facility] compliance coordinator and was recommended to come to the ER for further evaluation treatment. States that she has a wound to her left lateral [place] proximally 2 weeks ago after hitting a car door, states that the redness has gotten gradually worse states that she did have a fever yesterday but is currently afebrile here. She denies any other symptoms at this time. No recent trauma or falls. Related Data Home Medications ?Medication ?Instructions ?Recorded ?Confirmed aspirin 81 mg tablet,delayed 81 mg PO QDAY ##1 04/20/11 10/22/24 release Previous Rx's ?Medication ?Instructions ?Recorded amlodipine 5 mg tablet 5 mg PO DAILY #90 tabs 12/01/21 ezetimibe 10 mg tablet 10 mg PO DAILY #90 tabs 12/01/21 losartan 100 mg tablet 100 mg PO DAILY #90 tabs 12/01/21 omeprazole 20 mg capsule,delayed 20 mg PO DAILY #90 caps 12/01/21 release potassium chloride 10 mEq 10 meq PO DAILY #90 tabs 12/01/21 tablet,extended release prednisone 20 mg tablet 40 mg (2 x 20 mg) PO DAILY #10 tabs 02/21/24 albuterol sulfate 2.5 mg/3 mL 2.5 mg (3 mL) inhalation Q4-6H PRN 02/26/24 (0.083 %) solution for nebulization shortness of breath or wheezing #75 mL albuterol sulfate 90 mcg/actuation 2 inh inhalation Q4-6H PRN 02/26/24 aerosol inhaler shortness of breath or wheezing #8.5 grams fluticasone 250 mcg-salmeterol 50 1 inh inhalation BID #60 ea 07/09/24 mcg/dose blistr powdr for inhalation prednisone 10 mg tablet 10 mg PO DAILY PRN worsening 10/22/24 asthma symptoms #90 tabs Allergies Allergy/AdvReac Type Severity Reaction Status Date / Time adhesive Allergy Unknown Verified 12/08/24 15:16 moxifloxacin Allergy Unknown Verified 12/08/24 15:16 atorvastatin (ATORVASTATIN) AdvReac Intermediate MUSCLE Verified 12/08/24 15:16 WEAKNESS lisinopril (LISINOPRIL) AdvReac Intermediate COUGH Verified 12/08/24 15:16 Review of Systems Review of Systems Narrative: General: Denies fever, chills, weight loss HEENT: Denies headache, eye drainage, eye irritation, head trauma, sore throat, voice change Cardiovascular: Denies any chest pain, palpitations, tachycardia Respiratory: Denies any shortness of breath, cough, wheeze, stridor GI/: Denies any abdominal pain, nausea, vomiting, diarrhea, bright red blood per rectum, melanotic stools, urinary frequency, urinary retention, dysuria, hematuria MSK: Denies any joint pain, muscle pains, swelling Skin: POSSIBLE INFECTION TO LOWER EXTREMITY, LEFT Neuro: Denies any headache, lightheadedness, dizziness, fainting, weakness Psych: Denies SI/HI Patient History Medical History Advanced directives, counseling/discussion Coronary artery disease Medicare annual wellness visit, initial Osteopenia GERD without esophagitis Mixed hyperlipidemia Essential hypertension HLD (hyperlipidemia) PVD (peripheral vascular disease) with claudication COPD (chronic obstructive pulmonary disease) Surgical History Status post delivery Social History household members: spouse and children alcohol intake: current alcohol intake frequency: a few times a month Exam Initial Vital Signs Initial Vital Signs: Vital Signs Temperature 98.8 F 12/08/24 15:07 Pulse Rate 95 H 12/08/24 15:07 Respiratory Rate 16 12/08/24 15:07 Blood Pressure 153/79 H 12/08/24 15:07 Pulse Oximetry 93 12/08/24 15:07 Oxygen Delivery Method Room Air 12/08/24 15:07 Course Vital Signs Vital signs: Vital Signs - 8 hr 12/08/24 15:07 Temperature 98.8 F Pulse Rate 95 H Respiratory Rate 16 Blood Pressure 153/79 H Pulse Oximetry 93 Oxygen Delivery Method Room Air Discharge Plan Departure Prescriptions: No Action aspirin 81 MG tablet,delayed release (DR/EC) 81 mg PO QDAY Qty: 1 albuterol sulfate 90 mcg/actuation HFA aerosol inhaler 2 inh inhalation Q4-6H PRN (Reason: shortness of breath or wheezing) Qty: 8.5 3RF albuterol sulfate 2.5 mg /3 mL (0.083 %) solution for nebulization 2.5 mg inhalation Q4-6H PRN (Reason: shortness of breath or wheezing) Qty: 75 0RF amlodipine 5 mg tablet 5 mg PO DAILY Qty: 90 3RF ezetimibe 10 mg tablet 10 mg PO DAILY Qty: 90 3RF losartan 100 mg tablet 100 mg PO DAILY Qty: 90 3RF omeprazole 20 mg capsule,delayed release(DR/EC) 20 mg PO DAILY Qty: 90 3RF potassium chloride 10 mEq tablet extended release 10 meq PO DAILY Qty: 90 3RF prednisone 20 mg tablet 40 mg PO DAILY Qty: 10 0RF Rx Instructions: For asthma exacerbation prednisone 10 mg tablet 10 mg PO DAILY PRN (Reason: worsening asthma symptoms) Qty: 90 0RF fluticasone propion-salmeterol 250-50 mcg/dose blister with device 1 inh inhalation BID Qty: 60 11RF Rx Instructions: rinse mouth with water, gargle and spit after each use Referrals: Gloria Jc MD [Primary Care Provider, Medical]
--- NOTE | 2024-12-08 15:36 | ED_ITS ---
<Statement entered by Chester Leon, - 12/08/24 17:06> Dr. Leon: I was immediately available in the department for consultation. I did not actually see the patient. HPI - Skin/Abscess/Foreign Bdy General Chief complaint: Skin/Abscess/Foreign Body Stated complaint: cellulitis lt leg, dr sent over Time Seen by Provider: 12/08/24 15:31 Source: patient Mode of arrival: Ambulatory Limitations: no limitations History of Present Illness HPI narrative: Ms. Bueno is a very pleasant 79-year-old female with a past medical history of COPD/asthma, HTN, CAD, HLD who presents to the emergency department for wound to her left lower extremity x2 weeks. Patient reports about 2 weeks ago she cut her anterior left wellington on the car door. Since then she has noticed the area has started to become red. She went to her juvenile counselor today and showed them this wound and they recommended she get evaluated for concern of cellulitis. Patient denies fevers, chills, calf swelling or tenderness, numbness tingling weakness of the lower extremity. She currently has a 13 cm region of erythema surrounding a 3 cm scab on the anterior left wellington that has been circled. No drainage. Last TDap 2011. Related Data Home Medications ?Medication ?Instructions ?Recorded ?Confirmed aspirin 81 mg tablet,delayed 81 mg PO QDAY ##1 2 10/22/24 release Previous Rx's ?Medication ?Instructions ?Recorded amlodipine 5 mg tablet 5 mg PO DAILY #90 tabs 12/01 ezetimibe 10 mg tablet 10 mg PO DAILY #90 tabs 11/16 09/06 losartan 100 mg tablet 100 mg PO DAILY #90 tabs omeprazole 20 mg capsule,delayed 20 mg PO DAILY #90 ca ps 12/01/21 release potassium chloride 10 mEq 10 meq PO DAILY #90 tabs tablet,extended release prednisone 20 mg tablet 40 mg (2 x 20 mg) PO DAILY # 10 tabs 02/21/24 albuterol sulfate 2.5 mg/3 mL 2.5 mg (3 mL) inhalation Q4-6H PRN 02/26/24 (0.083 %) solution for nebulization shortness of breat h or wheezing #75 mL albuterol sulfate 90 mcg/actuation 2 inh inhalation Q4 -6H PRN 02/26/24 aerosol inhaler shortness of breath or wheez ing #8.5 grams fluticasone 250 mcg-salmeterol 50 1 inh inhalation BID #60 ea 07/09/24 mcg/dose blistr powdr for inhalation prednisone 10 mg tablet 10 mg PO DAILY PRN worsening 10/22/24 asthma symptoms #90 tabs Allergies Allergy/AdvReac Type Severity Reaction Status Date / Time adhesive Allergy Unknown Verified 12/08/24 15:16 moxifloxacin Allergy Unknown Verified 12/08/24 15:16 atorvastatin (ATORVASTATIN) AdvReac Intermediate MUSCLE Verified 12/08/24 15:16 WEAKNESS lisinopril (LISINOPRIL) AdvReac Intermediate COUGH Verified 12/08/24 15:16 Review of Systems Review of Systems ROS Unobtainable: All systems reviewed & are unremarkable except as noted in HPI and below Patient History Medical History Advanced directives, counseling/discussion Coronary artery disease Medicare annual wellness visit, initial Osteopenia GERD without esophagitis Mixed hyperlipidemia Essential hypertension HLD (hyperlipidemia) PVD (peripheral vascular disease) with claudication COPD (chronic obstructive pulmonary disease) Surgical History Status post delivery Social History household members: spouse and children alcohol intake: current alcohol intake frequency: a few times a month Exam Narrative Exam Narrative: GENERAL: 79 year old patient appears stated age. Well-developed patient, in no acute distress. HEAD: Atraumatic. Normocephalic. EYES: No scleral icterus. No injection or drainage. NECK: Trachea midline. Cervical ROM intact. CARDIOVASCULAR: Regular rate and irregular rhythm. RESPIRATORY: ?Nonlabored respirations. ?Speaking in clear, full sentences. EXTREMITIES: 2+ DP and PT pulses bilaterally. Sensation intact to light touch in the plantar and dorsal aspect of both feet. On the mid anterior left wellington region there is a 3 cm scab with surrounding erythema extending 13 cm perpendicularly and 6 cm horizontally, these borders are marked with black skin marker. There is no induration, fluctuance or drainage. No streaking erythema up the leg or down the leg. No edema of the lower extremity. NEURO: AOx3. ?Clear speech. ?Moves all 4 extremities appropriately. Initial Vital Signs Initial Vital Signs: Vital Signs Temperature 98.8 F 12/08/24 15:07 Pulse Rate 95 H 12/08/24 15:07 Respiratory Rate 16 12/08/24 15:07 Blood Pressure 153/79 H 12/08/24 15:07 Pulse Oximetry 93 12/08/24 15:07 Oxygen Delivery Method Room Air 12/08/24 15:07 Course Orders Ordered: Discontinued Medications Diphtheria/Tetanus/Acell Pertussis (Tet,Diph,Pertuss(Acell),Vac/Pf 0.5 Ml Syringe) 0.5 ml IM .ONCE ONE Stop: 12/08/24 15:44 Last Admin: 12/08/24 16:15 Dose: 0.5 ml Documented By: JE Doxycycline Hyclate (Doxycycline Hyclate 100 Mg Tablet) 100 mg PO NOW ONE Stop: 12/08/24 15:44 Last Admin: 12/08/24 16:15 Dose: 100 mg Documented By: JE Vital Signs Vital signs: Vital Signs - 8 hr 12/08/24 15:07 Temperature 98.8 F Pulse Rate 95 H Respiratory Rate 16 Blood Pressure 153/79 H Pulse Oximetry 93 Oxygen Delivery Method Room Air MDM - Skin/Abscess/Foreign Bdy Medical Records Attestation: I reviewed the patient's medical records. MDM Narrative Medical decision making narrative: 79-year-old female with a past medical history of COPD/asthma, HTN, CAD, HLD who presents to the emergency department for wound to her left lower extremity x2 weeks. Differential diagnosis includes but is not limited to wound infection, cellulitis, abscess, etc. On exam patient is in no acute distress, nontoxic appearing, vital signs appro priate with heart rate in the mid to low 90s which is baseline for her. Afebrile. Localized cellulitis surrounding a skin tear on the anterior left wellington. We will treat patient with oral doxycycline, recommended topical wound care, PCP follow up. Corporate Law Specialist has already sent a script for doxycycline 100 mg b.i.d. times 14 days to her pharmacy that is ready to be picked up. We will give 1st dose here. Discussed strict ER return precautions including but not limited to fevers, chills, increased redness surrounding marker borders or any other concerns. Patient verbalized understanding of all information agreeable with the plan. Her Tdap was updated today. She is ambulatory and stable for discharge home. Discharge Plan Departure Patient Disposition: Home Clinical Impression: Cellulitis of left leg, Wound infection Instructions: DI for Cellulitis -- Adult Activity Restrictions/Additional Instructions: Dear Alia Myles, Thank you for coming to the emergency department. Today you were evaluated for left lower leg wound. This wound on your left lower extremity has become infect ed which is called cellulitis. You have been prescribed a course of antibiotics which I would like you to take twice a day. Please keep this wound clean, can be helpful to cover it with antibiotic ointment as well. Please complete the full course of antibiotics that have already been sent to your pharmacy, doxycycline 100mg twice a day. Please return to the emergency department immediately if you develop fevers, redness spreading up or down the leg, severe pain, flu symptoms or any other concerns. Please follow up with your primary care doctor within the next 2-3 days for ER follow-up. (If you do not have a PCP you can call [phone]. ?to schedule an appointment with an [facility] Primary Care Provider) IF YOU DEVELOP ANY NEW OR WORSENING SYMPTOMS, RETURN TO THE ER! Please read the attached instructions, they highlight more specific treatments and interventions for you at home. Thank you for letting me participate in your care, Mary Isaac PA-C Prescriptions: No Action aspirin 81 MG tablet,delayed release (DR/EC) 81 mg PO QDAY Qty: 1 albuterol sulfate 90 mcg/actuation HFA aerosol inhaler 2 inh inhalation Q4-6H PRN (Reason: shortness of breath or wheezing) Qty: 8.5 3RF albuterol sulfate 2.5 mg /3 mL (0.083 %) solution for nebulization 2.5 mg inhalation Q4-6H PRN (Reason: shortness of breath or wheezing) Qty: 75 0RF amlodipine 5 mg tablet 5 mg PO DAILY Qty: 90 3RF ezetimibe 10 mg tablet 10 mg PO DAILY Qty: 90 3RF losartan 100 mg tablet 100 mg PO DAILY Qty: 90 3RF omeprazole 20 mg capsule,delayed release(DR/EC) 20 mg PO DAILY Qty: 90 3RF potassium chloride 10 mEq tablet extended release 10 meq PO DAILY Qty: 90 3RF prednisone 20 mg tablet 40 mg PO DAILY Qty: 10 0RF Rx Instructions: For asthma exacerbation prednisone 10 mg tablet 10 mg PO DAILY PRN (Reason: worsening asthma symptoms) Qty: 90 0RF fluticasone propion-salmeterol 250-50 mcg/dose blister with device 1 inh inhalation BID Qty: 60 11RF Rx Instructions: rinse mouth with water, gargle and spit after each use Referrals: Gloria Jc MD [Primary Care Provider, Medical] Stand Alone Forms: Patient Portal/API
[2024-12-08] MEDS: DOXYCYCLINE HYCLATE 100 MG TABLET PO (16:15)
[2024-12-08] MEDS: TET,DIPH,PERTUSS(ACELL),VAC/PF 0.5 ML SYRINGE IM (16:15)
--- NOTE | 2024-12-21 14:49 | PC.NURSE ---
This PROGRAMMING SPECIALIST sent ER Physician Documentation Note to [facility] per their request. Note faxed to [phone]
== END 2024-12-08 16:32 | disposition home or self-care (01) ==
PROVIDERS: Emergency Provider Physician Assistant; PCP Internal Medicine Geriatric Medicine
DX: L03.116 Cellulitis of left lower limb (principal); Z23 Encounter for immunization
CPT/HCPCS: 36415; 80069; 82306; 82310; 83970; 84439; 84443; 90471; 99283; 90715

== ENCOUNTER 2024-12-29 11:23 | Emergency (ER) | payer MEDICARE, SELFPAY ==
[2023-01-16 18:32] VITALS: BMI 23.0
[2024-12-29] VITALS (15 sets, daily range): BP systolic 116–187; BP diastolic 67–93; PULSE 67–101; RESP 20–33; TEMP 36.5; O2SAT 89–97; BMI 21.9
--- NOTE | 2024-12-29 11:39 | EKG_ITS ---
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
--- NOTE | 2024-12-29 11:47 | ED.EXTPRO ---
HPI - Extremity Problem General Chief complaint: Extremity Problem,Nontraumatic Stated complaint: cellulitis left leg pain x 3weeks Time Seen by Provider: 12/29/24 11:41 Source: patient Mode of arrival: Ambulatory History of Present Illness HPI Narrative: Patient is a 79-year-old female history of COPD peripheral arterial disease presenting today with ongoing left leg wound. She reports that it has not been healing. It gets red or throughout the day it is little bit better in the morning. She says she had an ultrasound done with [facility] she has a referral to [facility] but it has not happened yet. Today she says that her left leg is more red and it is burning. Her wound she thinks it is getting worse. She was seen evaluated here on the given doxycycline which she took for 10 days. She says it did not seem to help. She denies any fever or chills. She does not take aspirin or Plavix. Related Data Home Medications ?Medication ?Instructions ?Recorded ?Confirmed aspirin 81 mg tablet,delayed 81 mg PO QDAY ##1 04/20/11 10/22/24 release Previous Rx's ?Medication ?Instructions ?Recorded amlodipine 5 mg tablet 5 mg PO DAILY #90 tabs 12/01/21 ezetimibe 10 mg tablet 10 mg PO DAILY #90 tabs 12/01/21 losartan 100 mg tablet 100 mg PO DAILY #90 tabs 12/01/21 omeprazole 20 mg capsule,delayed 20 mg PO DAILY #90 caps 12/01/21 release potassium chloride 10 mEq 10 meq PO DAILY #90 tabs 12/01/21 tablet,extended release prednisone 20 mg tablet 40 mg (2 x 20 mg) PO DAILY #10 tabs 02/21/24 albuterol sulfate 2.5 mg/3 mL 2.5 mg (3 mL) inhalation Q4-6H PRN 02/26/24 (0.083 %) solution for nebulization shortness of breath or wheezing #75 mL albuterol sulfate 90 mcg/actuation 2 inh inhalation Q4-6H PRN 02/26/24 aerosol inhaler shortness of breath or wheezing #8.5 grams fluticasone 250 mcg-salmeterol 50 1 inh inhalation BID #60 ea 07/09/ mcg/dose blistr powdr for inhalation prednisone 10 mg tablet 10 mg PO DAILY PRN worsening 10/22/24 asthma symptoms #90 tabs cephalexin 500 mg capsule 500 mg PO TID #21 caps 12/29/24 Allergies Allergy/AdvReac Type Severity Reaction Status Date / Time adhesive Allergy Unknown Verified 12/08/24 15:16 moxifloxacin Allergy Unknown Verified 12/08/24 15:16 atorvastatin (ATORVASTATIN) AdvReac Intermediate MUSCLE Verified 12/08/24 15:16 WEAKNESS lisinopril (LISINOPRIL) AdvReac Intermediate COUGH Verified 12/08/24 15:16 Patient History Medical History Advanced directives, counseling/discussion Coronary artery disease Medicare annual wellness visit, initial Osteopenia GERD without esophagitis Mixed hyperlipidemia Essential hypertension HLD (hyperlipidemia) PVD (peripheral vascular disease) with claudication COPD (chronic obstructive pulmonary disease) Surgical History Status post delivery Social History household members: spouse and children Smoking Status: Never smoker alcohol intake: current Smoking Status: Never smoker alcohol intake frequency: a few times a month Exam Initial Vital Signs Initial Vital Signs: Vital Signs Temperature 97.7 F 12/29/24 11:30 Pulse Rate 98 H 12/29/24 11:30 Respiratory Rate 22 12/29/24 11:30 Blood Pressure 116/91 H 12/29/24 11:30 Pulse Oximetry 91 12/29/24 11:30 Oxygen Delivery Method Room Air 12/29/24 11:30 GENERAL: Alert well-appearing 79-year-old female and in no acute distress. HEENT: Head atraumatic,EOMI, pupils reactive, face symmetric, moist mucous membranes CARDIOVASCULAR: Regular rate and rhythm without murmurs, rubs or gallops. RESPIRATORY: Breath sounds equal bilaterally, no wheezes rales or rhonchi. ABDOMEN: Soft, nontender. Normoactive bowel sounds all 4 quadrants. No guarding or rebound. EXTREMITIES: Normal range of motion, no clubbing or edema. Neurovascularly intact Strong distal pedal pulses felt bilaterally feet are warm NEUROLOGICAL: Alert and oriented x4.Normal gait and speech. Cranial nerves II through XII grossly intact. SKIN: Left leg wound 2 cm x 1 cm anterior mid leg with patchy erythema it is noncircumferential fairly well localized no gross drainage Course Orders Ordered: ED Orders 12/29/24 11:55 US arterial duplex LE LT Stat 12/29/24 12:00 Wound Culture and Gram Stain Stat 12/29/24 12:04 CBC Auto Diff [Complete Blood Count AUTO DIFF] Stat CMP [Comprehensive Metabolic Panel] Stat Lactate (Lactic Acid) Stat PT [Prothrombin Time INR] Stat PTT Partial Thromboplastin Familia Stat Albuterol (Albuterol 2.5 Mg/3 Ml Neb (Adult)) 2.5 mg INH [id number] PRN PRN Reason: Shortness Of Breath Last Admin: 12/29/24 12:33 Dose: 2.5 mg Documented By: SAT Albuterol/Ipratropium (Albuterol/Ipratropium 3 Ml Ampul) 3 ml INH Q1H PRN PRN Reason: Shortness Of Breath Vital Signs Vital signs: Vital Signs - 8 hr 12/29/24 11:30 12/29/24 11:37 12/29/24 11:38 Temperature 97.7 F Pulse Rate 98 H 100 H Respiratory Rate 22 Blood Pressure 116/91 H 187/93 H Pulse Oximetry 91 90 L Oxygen Delivery Method Room Air Oxygen Flow Rate Fraction of Inspired Oxygen 12/29/24 11:38 12/29/24 12:00 12/29/24 12:30 Temperature Pulse Rate 91 H 101 H 88 Respiratory Rate 24 25 H Blood Pressure Pulse Oximetry 91 92 91 Oxygen Delivery Method Oxygen Flow Rate Fraction of Inspired Oxygen 12/29/24 12:31 12/29/24 12:32 12/29/24 12:32 Temperature Pulse Rate 86 84 Respiratory Rate 26 H 25 H Blood Pressure 133/72 Pulse Oximetry 90 L 89 L Oxygen Delivery Method Oxygen Flow Rate Fraction of Inspired Oxygen 12/29/24 12:36 12/29/24 12:55 Temperature Pulse Rate 84 67 Respiratory Rate 20 22 Blood Pressure Pulse Oximetry 97 95 Oxygen Delivery Method Room Air Nasal Cannula Oxygen Flow Rate 0 3 Fraction of Inspired Oxygen 21 MDM - Extremity (Nontraumatic) Lab Data 12/29/24 12:04 12/29/24 12:04 Labs: Lab Results 12/29/24 Range/Units 12:04 WBC 8.5 (4.5-11.0) X10^3/uL RBC 5.14 (4.0-5.2) X10^6/uL Hgb 15.0 (12.0-16.0) g/dL Hct 45.2 (36-46) % MCV 87.9 (80-100) fL MCH 29.1 (26-34) PG MCHC 33.1 (30-36) % RDW 13.2 (11.6-14.8) % Plt Count 360 (150-400) X10^3/uL Neut % (Auto) 58.2 (50-75) % Lymph % (Auto) 17.9 L (25-40) % [place] % (Auto) 9.9 (3-14) % Eos % (Auto) 13.3 H (2-4) % Baso % (Auto) 0.7 (0-2) % Neut # (Auto) 5000 (8258-8814) /uL Lymph # (Auto) 1500 (1395-5936) /uL [place] # (Auto) 800 (0-900) /uL Eos # (Auto) 1100 H (0-450) /uL Baso # (Auto) 100 (0-100) /uL PT 10.3 (9.4-12.5) SECONDS INR 0.9 (0.9-1.3) APTT 28 (25.1-36.5) SECONDS Sodium 138 (137-145) mmol/L Potassium 4.0 (3.4-5.1) mmol/L Chloride 100 (98-107) mmol/L Carbon Dioxide 29 (22-32) mmol/L BUN 10 (7-17) mg/dL Creatinine 0.76 (0.52-1.04) mg/dL Estimated GFR > 60 (>60) mL/min BUN/Creatinine Ratio 13.2 (6-22) Glucose 98 (70-99) mg/dL Lactate 1.5 (0.7-2.1) mmol/L Calcium 9.7 (8.4-10.2) mg/dL Total Bilirubin 0.8 (0.2-1.3) mg/dL AST 46 H (14-36) IU/L ALT 28 (<35) IU/L Alkaline Phosphatase 87 (38-126) U/L Total Protein 8.2 (6.3-8.2) g/dL Albumin 4.7 (3.5-5.0) g/dL Globulin 3.5 (1.7-4.1) g/dL Albumin/Globulin Ratio 1.3 (1.0-2.8) Imaging Data US arterial : Radiologist's Impression: PROCEDURE: US ARTERIAL DUPLEX LE LT INDICATIONS: non healing wound TECHNIQUE: Color and pulse Doppler interrogation was performed of the left lower extremity arterial system, with image documentation. COMPARISON: [facility], [place], ARTERIAL LOW.EXTREM.BILATERAL, 06/08/2015, 16:31. FINDINGS: Common femoral artery: 243 cm/sec, with biphasic flow. Deep femoral artery: 75 cm/sec, with biphasic flow. Proximal superficial femoral artery: 34 cm/sec, with biphasic flow. Mid superficial femoral artery: 17 cm/sec, with biphasic flow. Distal superficial femoral artery: 75 cm/sec, with biphasic flow. Popliteal artery: 48 cm/sec, with biphasic flow. Posterior tibial artery: 21 cm/sec, with biphasic flow. Anterior tibial artery/dorsalis pedis: 25 cm/sec, with biphasic flow. [facility]-scale imaging description: Extensive atherosclerotic plaques are noted throughout visualized left lower extremity arteries. IMPRESSION: Moderate to severe atherosclerotic calcifications throughout visualized left lower extremity arteries with diminished flow. No focal high-grade stenosis is seen. Dictated by: Brad Porter M.D. on 12/29/2024 at 13:14 MDM Narrative Medical decision making narrative: Patient is a 79-year-old female history of peripheral arterial disease presenting today with ongoing nonhealing lower leg wound. She is scheduled for vascular back does not have an appointment yet Blood work has been reviewed She has no leukocytosis no anemia no electrolyte abnormality Ultrasound reviewed showed moderate to severe atherosclerotic calcifications Patient wound is likely from peripheral arterial disease she does not appear septic she is has a nonhealing wound. Wound culture is sent and pending. [facility] vascular updated patient's symptoms test results agrees that no need for emergent transfer today she has an outpatient follow-up next week. Sits only testing that needs to be done as an ALLIE which could be done by them we do not need to do it here. Discharge Plan Departure Patient Disposition: Home Clinical Impression: PAD (peripheral artery disease), Cellulitis Instructions: DI for Cellulitis -- Adult, Peripheral Artery Disease Activity Restrictions/Additional Instructions: *You have been diagnosed with peripheral arterial disease cellulitis *What to do: At this time please follow up with vascular surgery as scheduled next *Continue to take medications as directed MUST TAKE ASPIRIN DAILY Keflex 500 mg 3 times a day *Follow up with your primary care provider in 2-3 days or call [phone] *Return to ER if you should have increasing pain or redness or any new, worsening or concerning symptoms Prescriptions: New cephalexin 500 mg capsule 500 mg PO TID Qty: 21 0RF No Action aspirin 81 MG tablet,delayed release (DR/EC) 81 mg PO QDAY Qty: 1 albuterol sulfate 90 mcg/actuation HFA aerosol inhaler 2 inh inhalation Q4-6H PRN (Reason: shortness of breath or wheezing) Qty: 8.5 3RF albuterol sulfate 2.5 mg /3 mL (0.083 %) solution for nebulization 2.5 mg inhalation Q4-6H PRN (Reason: shortness of breath or wheezing) Qty: 75 0RF amlodipine 5 mg tablet 5 mg PO DAILY Qty: 90 3RF ezetimibe 10 mg tablet 10 mg PO DAILY Qty: 90 3RF losartan 100 mg tablet 100 mg PO DAILY Qty: 90 3RF omeprazole 20 mg capsule,delayed release(DR/EC) 20 mg PO DAILY Qty: 90 3RF potassium chloride 10 mEq tablet extended release 10 meq PO DAILY Qty: 90 3RF prednisone 20 mg tablet 40 mg PO DAILY Qty: 10 0RF Rx Instructions: For asthma exacerbation prednisone 10 mg tablet 10 mg PO DAILY PRN (Reason: worsening asthma symptoms) Qty: 90 0RF fluticasone propion-salmeterol 250-50 mcg/dose blister with device 1 inh inhalation BID Qty: 60 11RF Rx Instructions: rinse mouth with water, gargle and spit after each use Referrals: Gloria Jc MD [Primary Care Provider, Medical] Stand Alone Forms: Patient Portal/API
--- NOTE | 2024-12-29 11:55 | DI.US.S_ITS ---
PROCEDURE: US ARTERIAL DUPLEX LE LT INDICATIONS: non healing wound TECHNIQUE: Color and pulse Doppler interrogation was performed of the left lower extremity arterial system, with image documentation. COMPARISON: [facility], , ARTERIAL LOW.EXTREM.BILATERAL, 06/08/2015, 16:31. FINDINGS: Common femoral artery: 243 cm/sec, with biphasic flow. Deep femoral artery: 75 cm/sec, with biphasic flow. Proximal superficial femoral artery: 34 cm/sec, with biphasic flow. Mid superficial femoral artery: 17 cm/sec, with biphasic flow. Distal superficial femoral artery: 75 cm/sec, with biphasic flow. Popliteal artery: 48 cm/sec, with biphasic flow. Posterior tibial artery: 21 cm/sec, with biphasic flow. Anterior tibial artery/dorsalis pedis: 25 cm/sec, with biphasic flow. [facility]-scale imaging description: Extensive atherosclerotic plaques are noted throughout visualized left lower extremity arteries. IMPRESSION: Moderate to severe atherosclerotic calcifications throughout visualized left lower extremity arteries with diminished flow. No focal high-grade stenosis is seen. Dictated by: Brad Porter M.D. on 12/29/2024 at 13:14 Approved by: Brad Porter M.D. on 12/29/2024 at 13:16
--- NOTE | 2024-12-29 12:00 | PC.NURSE ---
Pt presents to ER with report of L lower extremity cellulitis for ~3wks. Pt reports the wound has not improved and becomes increasingly inflamed throughout the day. Pt also reports severe pain in leg. Pt reports some nausea/gagging, denies chest pain. Reports new cough with phlegm starting 10 in the evening and relates a hx of asthma for which she takes prednisone and uses and albuterol inhaler. Pt reports since her cough she has been using her inhaler more, almost every two hours.
[2024-12-29 12:25] LABS: Add Manual Diff / Slide Review NO; Hematocrit 45.2 % (36-46); Hemoglobin 15.0 g/dL (12.0-16.0); Lymphocytes Absolute Auto 1500 /uL (1100-4500); Mean Corpuscular HGB Conc 33.1 % (30-36); Mean Corpuscular Hemoglobin 29.1 PG (26-34); Mean Corpuscular Volume 87.9 fL (80-100); Platelet Count 360 X10^3/uL (150-400)
[2024-12-29] MEDS: ALBUTEROL 2.5 MG/3 ML NEB (ADULT) INH (12:33)
--- NOTE | 2024-12-29 12:34 | PC.NURSE ---
IV placed by Ariela SHAW
[2024-12-29 12:35] LABS: INR 0.9 (0.9-1.3); Prothrombin Time 10.3 SECONDS (9.4-12.5)
[2024-12-29 12:38] LABS: PTT Partial Thromboplastin Tim 28 SECONDS (25.1-36.5)
[2024-12-29 12:39] LABS: Alanine Aminotransferase 28 IU/L (<35); Albumin 4.7 g/dL (3.5-5.0); Albumin Globulin Ratio 1.3 (1.0-2.8); Alkaline Phosphatase 87 U/L (38-126); Blood Urea Nitrogen 10 mg/dL (7-17); Calcium 9.7 mg/dL (8.4-10.2); Carbon Dioxide 29 mmol/L (22-32); Chloride 100 mmol/L (98-107); Estimated Glomerular Filt Rate > 60 mL/min (>60); Globulin 3.5 g/dL (1.7-4.1); Glucose 98 mg/dL (70-99); HEMOLYSIS < 15 (0-50); Lactate (Lactic Acid) 1.5 mmol/L (0.7-2.1); Potassium 4.0 mmol/L (3.4-5.1); Sodium 138 mmol/L (137-145); Total Protein 8.2 g/dL (6.3-8.2)
--- NOTE | 2024-12-29 12:57 | PC.NURSE ---
PT placed on 3L O2 via nasal cannula after O2 sat dropped to 87/88% and held. Saturation at 95% with O2
--- NOTE | 2024-12-29 14:55 | PC.NURSE ---
LOOM CLEANER Note: Consult with [facility] completed.
== END 2024-12-29 15:09 | disposition home or self-care (01) ==
PROVIDERS: Emergency Provider Emergency Medicine; PCP Internal Medicine Geriatric Medicine
DX: I73.9 Peripheral vascular disease, unspecified (principal); L03.116 Cellulitis of left lower limb; J44.9 Chronic obstructive pulmonary disease, unspecified
CPT/HCPCS: 36415; 80053; 83605; 85025; 85610; 85730; 87070; 87075; 87205; 93005; 93010; 93926; 94640; 99284; J7613